=== PATIENT | male | born 1975 | race Caucasian/White ===

== ENCOUNTER 2018-04-07 15:03 | Outpatient (REF) | payer MEDICAID, SELFPAY ==
[2018-04-07 20:54] LABS: Abs Immature Grans 0.03 k/cumm (0.0-0.09); Absolute Basophil Count 0.01 k/cumm (0.0-0.2); Absolute Eosinophil Count 0.07 k/cumm (0.0-0.7); Absolute Lymphocyte Count 1.77 k/cumm (1.2-3.4); Absolute Monocyte Count 0.67 k/cumm (0.11-0.7); Absolute Neutrophil Count 5.63 k/cumm (1.2-6.7); Basophils % 0.1; Eosinophils % 0.9; HCT 45.9 % (40.0-50.0); HGB 15.6 g/dL (13.5-17.5); Immature Grans % 0.4; Lymphocytes % 21.6; Mean Corpuscular Hemoglobin 29.2 pg (27.0-33.0); Mean Platelet Volume 10.3 fL (8.0-11.0); Monocytes % 8.2; Neutrophils % 68.8; Platelet Count 238 x1000/uL (130-400); RBC 5.34 m/cumm (4.50-6.00); RBC Distribution Width 14.3 % (11.8-14.1); White Blood Cell Count 8.18 k/cumm (4.4-10.8)
[2018-04-07 21:05] LABS: Anion Gap 10.1 mmol/L (3-11); BUN 18 mg/dL (7-18); CO2 25.9 mmol/L (21.0-32.0); CREATININE 0.87 mg/dL (0.70-1.30); Calcium 9.4 mg/dL (8.5-10.1); Chloride 104 mmol/L (98-107); Glucose 90 mg/dL (70-100); Potassium 4.1 mmol/L (3.5-5.1); Sodium 140 mmol/L (136-145)
== END 2018-04-07 15:23 ==
LOC: NCHCN 15:03
PROVIDERS: PCP Nurse Practitioner Family; Visit Provider Nurse Practitioner
DX: R10.32 Left lower quadrant pain (principal)
CPT/HCPCS: 80048; 85025

== ENCOUNTER 2018-04-09 10:39 | Outpatient (CLI) | payer SELFPAY ==
[2018-04-09] MEDS: Breeza Beverage 473 ML BTL PO ×2 (08:39→08:40)
[2018-04-09] MEDS: Omnipaque 350 MG/ML 50 ML BTL IJ (08:39)
--- NOTE | 2018-04-09 09:45 | DI.CT_ITS ---
SYMPTOM/DIAGNOSIS: LLQ ABD PAIN, R10.32, ? DIVERTICULITIS OR OBSTRUCTION, DECREASED BOWEL MOVEMENT, INTERMITTENT PALPABLE MASS ABDOMEN AND PELVIC CT: The study was carried out according to the usual protocol with an intravenous injection of 100 cc's of Omnipaque 350 and oral ingestion of dilute barium. There are two tiny pleural based nodules in the left lower lobe. No acute abnormality in the lower thorax is identified. Fatty infiltration of the liver is identified. The gallbladder is intact. There are no stones or ductal dilatation. The pancreas and spleen are unremarkable. The adrenals are normal. The kidneys are unremarkable save for a tiny radiolucency in the cortex of the left kidney, too small to fully characterize however probably representing a tiny cyst. A large quantity of fecal material is noted throughout the bowel. There is a normal appearing appendix. There is no evidence of diverticulosis or diverticulitis. There is no evidence of free air or free fluid in the abdomen or pelvic. The bladder is intact. Calcifications are noted in an otherwise unremarkable prostate. There is no evidence of a hernia. There is no evidence of an aortic aneurysm. Degenerative changes involving the lumbar spine are identified. The bony structures are otherwise unremarkable. SUMMARY: No evidence of obstruction, diverticulosis or diverticulitis as noted above. There is a large quantity of feces in the colon, findings consistent with constipation. Fatty infiltration of the liver is identified.
[2018-04-09] MEDS: Omnipaque 350 MG/ML 100 ML BTL IJ (10:02)
== END 2018-04-09 10:59 ==
PROVIDERS: PCP Nurse Practitioner Family; Visit Provider Nurse Practitioner
DX: R10.32 Left lower quadrant pain (principal); K59.00 Constipation, unspecified; K76.0 Fatty (change of) liver, not elsewhere classified
CPT/HCPCS: 74177; J3490; Q9967

== ENCOUNTER 2018-04-09 19:41 | Emergency (ER) | payer MEDICAID, SELFPAY ==
[2018-04-09 19:58] VITALS: BP 133/79; PULSE 95; RESP 18; TEMP 36.8; O2SAT 95
--- NOTE | 2018-04-09 21:03 | W.ED.GENAD ---
Discharge Plan Disposition Patient Disposition: HOME Condition: Fair Discharge Details Chief Complaint: Abd Prob Clinical Impression: Constipation Primary Care Provider: Clarissa Sheridan ED Provider: Kristi David Discharge Instructions Instructions: Constipation (ED) Additional Instructions: Encourage hydration. Please take magnesium citrate as previously advised. Please keep follow-up appointment tomorrow with your primary care. If you develop increased pain, inability to stay hydrated or other new/worsening symptoms please seek care urgently once again Referrals: Clarissa Sheridan [Primary Care Provider] - Medical Decision Making Patient is a 42-year-old male presenting today with chief complaint of diffuse abdominal pain. He reports over the past 3 weeks he has had difficulty with constipation. Reports that he has tried MiraLAX x2. POrtion of magnesium citrate dosing today. Reports that he was seen by primary care. Laboratory evaluation was obtained Saturday with no acute abnormalities noted. CT was obtained today significant for large amount of stool burden. Primary care had advised patient to try the magnesium citrate. Reports that initially his pain was primarily in the left lower quadrant is much more diffuse at this point. States that pain has increased over the past several days. Reports for the past 5 hours has had nausea and vomiting. Reports that the vomiting is associated with pain. Reports that he has waves of discomfort which she associates with gas pain. Reports that he has not passed flatus today. States that last BM was yesterday but this is very small and hard. No normal bowel movements for the past 3 weeks. On exam, patient has diffuse discomfort. He is endorsing severe discomfort. He does have guarding. Abdomen is not rigid. Plan to obtain x-ray to evaluate for any possible acute changes such as free air or obstruction. We will also repeat laboratory evaluation X-ray reviewed by radiologist. Advised the lungs are clear. No pneumothorax, no sizable pleural effusion. No cardiomegaly. Significant amount of retained fecal matter throughout the colon. No definite findings to suggest obstruction. No pneumoperitoneum. No acute fracture abnormality with the bones or joints. Soft tissues are normal. Patient was given Fleet enema by nursing staff. After enema was given, patient does report that he is feeling improved as he was able to have a small bowel movement. Feels that this may still be working and is hoping to stay for further treatment Proximally half an hour after the initial enema was given, patient is requesting a second. Only small amount, approximately 30cc of fluid, was tolerated by the patient. He reports that after this, he had a large amount of flatus pass. Feels much improved. Reports that his abdomen has decompressed. He is no longer experiencing pain with movement or coughing. Feels that hei s able to go home. Requesting discharge. Feels that the enema has started ot get things moving. He plans to take the magnesium citrate that was advised by primary care. He reports that he has f/u with PCP tomorrow morning. Enocuraged water intake as he reports he has increased his fiber but has had minimal water intake. He feels that his nausea/vomiting has subsided. He was given strict return precautions. All of his quesitons and concerns were addressed, he is in agreement with this plan. HPI General Mode of arrival: ambulatory. Date/Time Provider Initiated Documentation: 04/09/18 20:05. Limitations to Documentation: no limitations. Information obtained by: patient. History of Present Illness 42 year old M presents to the emergency department with the chief complaint of abdominal pain, described as severe, with intensity rated at 10. Quality is described as sharp, and is localized to the abdomen. Patient reports no radiation. Patient started experiencing this week(s) (3) and it has been constant. No relieving factors improve symptom(s), No exacerbating factors reported . Patient notes loss of appetite and nausea/vomiting (states that he ); denies chest pain, cough, fever/chills, rash, shortness of breath, syncope and weakness. Patient did receive the following treatments prior to arrival, other (magnesium citrate) General Stated Complaint: Abd Prob PAUL: 3 Review of Systems Constitutional Reports as per HPI, Denies chills, Denies fever(s), Denies headache(s) and Reports poor appetite ENT Denies headache(s) Cardiovascular Denies chest pain and Denies dyspnea Respiratory Denies cough and Denies dyspnea Gastrointestinal Reports as per HPI, Reports abdominal pain, Reports constipation (had small, firm BM yesterday, last normal BM 3 weeks ago), Reports cramping, Denies excessive flatus (reports he is unable to pass flatus today), Reports nausea and Reports vomiting (vomiting for the past 5 hours, patient associates with increased pain) Genitourinary Denies genital pain, Denies dysuria, Denies flank pain, Denies testicular pain and Denies urinary urgency Musculoskeletal Denies back pain Integumentary/Breasts Denies erythema and Denies rash Neurologic Denies headache(s) [facility] Social History Smoking/Tobacco Use Status: Former Tobacco Use Exam Const General: cooperative, healthy appearing, uncomfortable, no acute distress, well developed, well groomed, acute distress moderate (clutching abdominal pain), not diaphoretic and not ill appearing Nutritional Appearance: well nourished and overweight Orientation: alert and awake Chest Chest: normal inspection of the chest Resp Effort & Inspection: normal respiratory effort, able to speak in complete sentences and no respiratory distress Auscultation: clear to auscultation bilaterally, no rales, no rhonchi and no wheezes Cardio Rate: regular rate Rhythm: regular rhythm Heart Sounds: S1 normal and S2 normal GI Inspection: distended, obesity, no scars and no visible herniation Palpation: firm other (diffuse), guarding (diffuse), no masses, not rigid, tender (diffuse) and No ascites Auscultation: hypoactive bowel sounds Rectal Exam: visual inspection normal, normal sphincter tone, prostate normal, No abnormal stool, No fecal impaction, No fissure, heme negative stool and No hemorrhoids Skin General skin exam: no rashes or lesions noted Lesions: no lesions Rashes: no rashes Trauma: no lacerations or abrasions Neuro General: alert Cognition: normal cognition Speech: speech normal Gait: normal gait Psych Appearance: grossly normal and well kempt Mental Status: mental status grossly normal Speech and Movement: speech and movement normal Course Vital Signs Temperature 36.8 C 04/09/18 19:58 Pulse 95 H 04/09/18 19:58 Respiratory Rate 18 04/09/18 19:58 Blood Pressure 133/79 04/09/18 19:58 Pulse Oximetry 95 04/09/18 19:58 Temperature 36.8 C 04/09/18 19:58 Temperature Source Temporal Artery Scan 04/09/18 19:58 Pulse 95 H 04/09/18 19:58 Respiratory Rate 18 04/09/18 19:58 Respiratory Effort 04/09/18 20:01 Blood Pressure 133/79 04/09/18 19:58 Blood Pressure Position Supine 04/09/18 19:58 Pulse Oximetry 95 04/09/18 19:58 Oxygen Delivery Method Room Air 04/09/18 19:58 Oxygen Flow Rate 0 04/09/18 19:58 Pain Level 9 04/09/18 19:58
[2018-04-09] MEDS: Ketorolac 30 MG/ML VIAL IVP (21:13)
[2018-04-09] MEDS: Normal Saline Flush 10 ML SYR IVP (21:13)
[2018-04-09] MEDS: ACETAMINOPHEN 1,000 MG/100 ML BTL 400 MG IVPB (21:15)
[2018-04-09 21:27] LABS: Abs Immature Grans 0.02 k/cumm (0.0-0.09); Absolute Basophil Count 0.01 k/cumm (0.0-0.2); Absolute Eosinophil Count 0.01 k/cumm (0.0-0.7); Absolute Lymphocyte Count 0.92 k/cumm (1.2-3.4); Absolute Monocyte Count 0.44 k/cumm (0.11-0.7); Absolute Neutrophil Count 9.87 k/cumm (1.2-6.7); Basophils % 0.1; Eosinophils % 0.1; HCT 46.1 % (40.0-50.0); HGB 15.7 g/dL (13.5-17.5); Immature Grans % 0.2; Lymphocytes % 8.2; Mean Corp. HGB Concentration 34.1 g/dL (32.0-36.0); Mean Corpuscular Hemoglobin 29.3 pg (27.0-33.0); Mean Platelet Volume 9.5 fL (8.0-11.0); Monocytes % 3.9; Neutrophils % 87.5; Platelet Count 230 x1000/uL (130-400); RBC 5.36 m/cumm (4.50-6.00); RBC Distribution Width 14.4 % (11.8-14.1); White Blood Cell Count 11.28 k/cumm (4.4-10.8)
[2018-04-09] MEDS: Normal Saline 1,000 ML 1000 ML IV (21:36)
[2018-04-09 21:52] LABS: ALT 45 U/L (12-78); AST 19 U/L (15-37); Alkaline Phosphatase 62 U/L (46-116); Anion Gap 7.3 mmol/L (3-11); BUN 14 mg/dL (7-18); Bilirubin, Total 0.4 mg/dL (0.2-1.0); CO2 30.7 mmol/L (21.0-32.0); CREATININE 1.03 mg/dL (0.70-1.30); Calcium 9.2 mg/dL (8.5-10.1); Chloride 101 mmol/L (98-107); Glucose 121 mg/dL (70-100); Lipase 121 U/L (73-393); Potassium 4.1 mmol/L (3.5-5.1); Sodium 139 mmol/L (136-145); Total Protein 7.8 g/dL (6.4-8.2)
--- NOTE | 2018-04-09 21:58 | DI.RAD_ITS ---
SYMPTOM/DIAGNOSIS: ABD PAIN PA CHEST: The heart is normal in size. The lungs are clear. The mediastinal structures and pleura appear intact. CONCLUSION: Normal chest. KUB AND UPRIGHT ABDOMEN: There is a large quantity of fecal material throughout the colon. There are no definite findings to suggest obstruction. There is no pneumoperitoneum. No acute bony abnormality is identified. The soft tissues are unremarkable. SUMMARY: No acute cardiopulmonary disease is identified. There is a considerable quantity of fecal material throughout the colon with no evidence of obstruction. The findings would be consistent with constipation and there is no evidence of pneumoperitoneum.
--- NOTE | 2018-04-09 22:21 | DI.VRAD_ITS ---
EXAM: XR Abdomen 2 Views with XR Chest 1 View EXAM DATE/TIME: 04/09/2018 8:58 PM CLINICAL HISTORY: 42 years old, male; Pain; Abdominal pain; Other: Constipation TECHNIQUE: XR of the abdomen (2 views) with XR chest (1 view). COMPARISON: CT Abdomen^ROUTINE ABDOMEN PELVIS WITH CONTRAST (Adult) 04/09/2018 9:35 AM FINDINGS: Lungs: Clear lungs. Pleural space: No pneumothorax. No sizable pleural effusion. Heart/Mediastinum: No cardiomegaly. Gastrointestinal tract: Significant amount of retained fecal material throughout the colon. No definite findings to suggest obstruction. Intraperitoneal space: No pneumoperitoneum. Bones/joints: Normal. No acute fracture. Soft tissues: Normal. IMPRESSION: 1. Clear lungs. 2. Significant amount of retained fecal material throughout the colon. No definite findings to suggest obstruction. 3. No pneumoperitoneum. Dictated and Authenticated by: Akil Echevarria MD. Ordering:KRISTEN JEFFERS MD
== END 2018-04-10 00:18 | disposition home or self-care (01) ==
PROVIDERS: Emergency Provider Physician Assistant; PCP Nurse Practitioner
DX: K59.00 Constipation, unspecified (principal)
CPT/HCPCS: 36415; 80053; 83690; 96361; 96374; 96375; 99284; 74022; 85025; J0131; J1885

== ENCOUNTER 2018-05-08 15:45 | Emergency (ER) | payer MEDICAID, SELFPAY ==
--- NOTE | 2018-05-08 15:46 | W.ED.GENAD ---
Discharge Plan Disposition Patient Disposition: HOME Condition: Stable Discharge Details Chief Complaint: Abd Prob Clinical Impression: Constipation Primary Care Provider: Clarissa Sheridan ED Provider: Ethan Mojica Home Meds and New Rx's Prescriptions: New ondansetron HCl [Zofran] 4 mg tablet 4 mg PO TID PRN (Reason: nausea and vomiting) 5 Days Qty: 30 RF: 0 Continue acetaminophen [Tylenol Arthritis Pain] 650 mg Tablet Extended Release 650 mg PO Q8H PRN PRNRF: 0 magnesium citrate Solution 240 ml PO ONCE PRNRF: 0 polyethylene glycol 3350 [ClearLax] 17 gram/dose Powder 1 dose PO PRNRF: 0 dpxaxdkz-cbn-oddxt-vit K-lycop [Men's 50 Plus Multivitamin] 400-20-370 mcg Tablet 1 tab PO DAILY RF: 0 Discharge Instructions Instructions: Constipation (ED) Additional Instructions: you should be contacted with an appointment for general surgery as you will likely need a colonscopy if you have fevers or diarrhea start taking the antibiotics. Medical Decision Making 42 yo male who denies prior abdominal surgeries or chronic med problems comes in with continued constipation. he has had this for over a month, was seen last month and had negative CT other than showing constipation. Has been trying stool softeners and miralax and mag citrate but still has difficulty getting stool out. Was able to have small amount of soft stool this AM. On exam has no abdominal distention, normal bowel sounds and mild lower abdominal discomfort without gurading, does feel constipated. The pt declined a rectal exam. Will have nurse try soap suds enema and reassess. pt had small amount of stool after enema, still feels uncomfortable however. His abdominal exam hasn't changed significantly. He is requesting a CT to eval for possible diverticulitis as he has had this in the past, will obtain ct CT shows ?colitis but he has no diarrhea or fevers or chills so do not feel abx indicated, he will start cipro/flagyl if he develops this and states he has this at home from a month ago already for 7 day tx. Also showed stricture vs neoplasm vs spasm of colon wall. Will refer him to gen surgery for eval and possible colonoscopy. Still no guarding or rebound on abdominal exam Differential Diagnosis constpiation, sbo, diverticulitis Imaging Data Radiologic Study: Attestation: I personally reviewed and interpreted this imaging study as follows: Imaging: CT Scan Radiologist's impression: IMPRESSION: 1. Colonic diverticulosis. 2. Mild wall thickening of the descending colon, most prominent in the distal descending colon where there is mild hazy density in the pericolic fat. These findings raise the suspicion for colitis. 3. 7 cm long segment of collapsed proximal sigmoid colon. Differential diagnosis includes spasm, stricture as well as neoplasm. Further evaluation is suggested. HPI General Mode of arrival: ambulatory. Date/Time Provider Initiated Documentation: 05/08/18 15:45. Limitations to Documentation: no limitations. Information obtained by: patient. History of Present Illness 42 year old M presents to the emergency department with the chief complaint of constipation, described as moderate, with intensity rated at 7. Quality is described as aching, and is localized to the abdomen. Patient reports no radiation. Patient started experiencing this month(s) (1) and it has been constant. No relieving factors improve symptom(s), No exacerbating factors reported . Patient did receive the following treatments prior to arrival, other (miralax) Related Data Home Medications Medication Instructions Recorded Confirmed acetaminophen [Tylenol Arthritis 650 mg PO Q8H PRN PRN 05/08/18 05/08/18 Pain] magnesium citrate 240 ml PO ONCE PRN 05/08/18 05/08/18 prxfirdt-fuz-prpws-vit K-lycop 1 tab PO DAILY 05/08/18 05/08/18 [Men's 50 Plus Multivitamin] ondansetron HCl [Zofran] 4 mg PO TID PRN 5 Days #30 tab 05/08/18 polyethylene glycol 3350 [ClearLax] 1 dose PO PRN 05/08/18 Previous Rx's Medication Instructions Recorded ondansetron HCl [Zofran] 4 mg PO TID PRN 5 Days #30 tab 05/08/18 Allergies Allergy/AdvReac Type Severity Reaction Status Date / Time No Known Allergies Allergy Unverified 05/08/18 15:56 General PAUL: 3 Review of Systems Review of Systems All systems reviewed & are unremarkable except as noted in HPI and below Constitutional Denies chills, Denies fever(s) and Denies weakness Eyes Denies loss of vision ENT Denies change in voice Cardiovascular Denies chest pain and Denies dyspnea Respiratory Denies dyspnea Genitourinary Denies dysuria Musculoskeletal Denies joint swelling Integumentary/Breasts Denies rash Neurologic Denies loss of vision and Denies weakness PFSH Social History Smoking/Tobacco Use Status: Former Tobacco Use Exam Const General: no acute distress Orientation: alert HENMT Head: normal to inspection Ears: external ears normal General nose exam: external nose normal Mouth: moist mucous membranes Eyes General: appearance normal, both eyes and all related structures Neck Neck: normal visual inspection Resp Effort & Inspection: normal respiratory effort and able to speak in complete sentences Cardio Rate: regular rate GI Inspection: normal to inspection, no abdominal wall ecchymosis and non-distended Palpation: soft Skin General skin exam: no rashes or lesions noted Neuro General: alert and oriented x3 Extrem General: normal to inspection Psych Mental Status: mental status grossly normal
[2018-05-08 15:53] VITALS: BP 141/88; PULSE 79; RESP 18; TEMP 37; O2SAT 96
--- NOTE | 2018-05-08 16:01 | ED.GENADUL_ITS ---
Discharge Plan Disposition Patient Disposition: HOME Condition: Stable Discharge Details Chief Complaint: Abd Prob Clinical Impression: Constipation Primary Care Provider: Clarissa Sheridan ED Provider: Ethan Mojica Home Meds and New Rx's Prescriptions: New ondansetron HCl [Zofran] 4 mg tablet 4 mg PO TID PRN (Reason: nausea and vomiting) 5 Days Qty: 30 RF: 0 Continue acetaminophen [Tylenol Arthritis Pain] 650 mg Tablet Extended Release 650 mg PO Q8H PRN PRNRF: 0 magnesium citrate Solution 240 ml PO ONCE PRNRF: 0 polyethylene glycol 3350 [ClearLax] 17 gram/dose Powder 1 dose PO PRNRF: 0 lspwpour-lhy-cjalz-vit K-lycop [Men's 50 Plus Multivitamin] 400-20-370 mcg Tablet 1 tab PO DAILY RF: 0 Discharge Instructions Instructions: Constipation (ED) Additional Instructions: you should be contacted with an appointment for general surgery as you will likely need a colonscopy if you have fevers or diarrhea start taking the antibiotics. Medical Decision Making 42 yo male who denies prior abdominal surgeries or chronic med problems comes in with continued constipation. he has had this for over a month, was seen last month and had negative CT other than showing constipation. Has been trying stool softeners and miralax and mag citrate but still has difficulty getting stool out. Was able to have small amount of soft stool this AM. On exam has no abdominal distention, normal bowel sounds and mild lower abdominal discomfort without gurading, does feel constipated. The pt declined a rectal exam. Will have nurse try soap suds enema and reassess. pt had small amount of stool after enema, still feels uncomfortable however. His abdominal exam hasn't changed significantly. He is requesting a CT to eval for possible diverticulitis as he has had this in the past, will obtain ct CT shows ?colitis but he has no diarrhea or fevers or chills so do not feel abx indicated, he will start cipro/flagyl if he develops this and states he has this at home from a month ago already for 7 day tx. Also showed stricture vs neoplasm vs spasm of colon wall. Will refer him to gen surgery for eval and possible colonoscopy. Still no guarding or rebound on abdominal exam Differential Diagnosis constpiation, sbo, diverticulitis Imaging Data Radiologic Study: Attestation: I personally reviewed and interpreted this imaging study as follows: Imaging: CT Scan Radiologist's impression: IMPRESSION: 1. Colonic diverticulosis. 2. Mild wall thickening of the descending colon, most prominent in the distal descending colon where there is mild hazy density in the pericolic fat. These findings raise the suspicion for colitis. 3. 7 cm long segment of collapsed proximal sigmoid colon. Differential diagnosis includes spasm, stricture as well as neoplasm. Further evaluation is suggested. HPI General Mode of arrival: ambulatory . Date/Time Provider Initiated Documentation: 05/08/18 15:45 . Limitations to Documentation: no limitations . Information obtained by: patient . History of Present Illness 42 year old M presents to the emergency department with the chief complaint of constipation, described as moderate, with intensity rated at 7. Quality is described as aching, and is localized to the abdomen. Patient reports no radiation. Patient started experiencing this month(s) (1) and it has been constant. No relieving factors improve symptom(s), No exacerbating factors reported . Patient did receive the following treatments prior to arrival, other (miralax) Related Data Home Medications Medication Instructions Recorded Confirmed acetaminophen [Tylenol Arthritis 650 mg PO Q8H PRN PRN 05/08/18 05/08/18 Pain] magnesium citrate 240 ml PO ONCE PRN 05/08/18 05/08/18 buxzqybn-dls-urour-vit K-lycop 1 tab PO DAILY 05/08/18 05/08/18 [Men's 50 Plus Multivitamin] ondansetron HCl [Zofran] 4 mg PO TID PRN 5 Days #30 tab 05/08/18 polyethylene glycol 3350 [ClearLax] 1 dose PO PRN 05/08/18 Previous Rx's Medication Instructions Recorded ondansetron HCl [Zofran] 4 mg PO TID PRN 5 Days #30 tab 05/08/18 Allergies Allergy/AdvReac Type Severity Reaction Status Date / Time No Known Allergies Allergy Unverified 05/08/18 15:56 General PAUL: 3 Review of Systems Review of Systems All systems reviewed & are unremarkable except as noted in HPI and below Constitutional Denies chills, Denies fever(s) and Denies weakness Eyes Denies loss of vision ENT Denies change in voice Cardiovascular Denies chest pain and Denies dyspnea Respiratory Denies dyspnea Genitourinary Denies dysuria Musculoskeletal Denies joint swelling Integumentary/Breasts Denies rash Neurologic Denies loss of vision and Denies weakness PFSH Social History Smoking/Tobacco Use Status: Former Tobacco Use Exam Const General: no acute distress Orientation: alert HENMT Head: normal to inspection Ears: external ears normal General nose exam: external nose normal Mouth: moist mucous membranes Eyes General: appearance normal, both eyes and all related structures Neck Neck: normal visual inspection Resp Effort & Inspection: normal respiratory effort and able to speak in complete sentences Cardio Rate: regular rate GI Inspection: normal to inspection, no abdominal wall ecchymosis and non-distended Palpation: soft Skin General skin exam: no rashes or lesions noted Neuro General: alert and oriented x3 Extrem General: normal to inspection Psych Mental Status: mental status grossly normal
--- NOTE | 2018-05-08 16:39 | DI.CT_ITS ---
SYMPTOM/DIAGNOSIS: NAUSEA, VOMITING, LOW ABD PAIN ABDOMEN AND PELVIC CT: CT scan of the abdomen and pelvis was performed without intravenous or oral contrast material. Comparison is made with 04/09/18. The lung bases appear clear. There is diffuse decreased attenuation of the liver consistent with hepatic steatosis. No discrete hepatic mass is seen on this noncontrast examination. The gallbladder is unremarkable. No calcified stones are seen. No biliary ductal dilatation is present. The unenhanced pancreas, spleen and adrenal glands are unremarkable. There is a non obstructing stone seen in the superior pole of the left kidney. No ureterolithiasis or hydronephrosis is seen. The urinary bladder and reproductive organs are grossly unremarkable. There is diverticulosis seen involving the distal transverse colon, descending colon and proximal sigmoid colon. There is mild bowel wall thickening seen in the distal descending colon and proximal sigmoid colon with a question of mild increased attenuation in the adjacent fat suspicious for a diverticulitis/ colitis. There is a 7 cm. segment of collapsed bowel involving the proximal sigmoid colon. This has a similar appearance compared to 04/09/18. While this may represent collapsed nondistended bowel, stricture or mass cannot be excluded and follow up is recommended. The abdominal aorta is of normal caliber with minimal atherosclerosis. No abdominal or pelvic adenopathy, ascites or pneumoperitoneum is seen. The bones are intact. IMPRESSION: 1. Colonic diverticulosis. 2. Bowel wall thickening and pericolonic inflammatory changes seen in the distal descending colon and proximal sigmoid colon suspicious for acute diverticulitis or colitis. 3. 7 cm. long segment of collapsed bowel in the proximal sigmoid colon. While this may represent nondistended bowel, the possibility of a stricture or neoplasm cannot be excluded and follow up is recommended.
--- NOTE | 2018-05-08 17:28 | DI.VRAD_ITS ---
EXAM: CT Abdomen and Pelvis Without Intravenous Contrast EXAM DATE/TIME: 05/08/2018 4:40 PM CLINICAL HISTORY: 42 years old, male; Signs and symptoms; Other: Nausea, vomiting, lower abdominal pain TECHNIQUE: Axial computed tomography images of the abdomen and pelvis without intravenous contrast. All CT scans at this facility use at least one of these dose optimization techniques: automated exposure control; mA and/or kV adjustment per patient size (includes targeted exams where dose is matched to clinical indication); or iterative reconstruction. Coronal and sagittal reformatted images were created and reviewed. COMPARISON: CT Abdomen^ROUTINE ABDOMEN PELVIS WITH CONTRAST (Adult) 04/09/2018 9:35 AM FINDINGS: Lower thorax: No acute findings. ABDOMEN: Liver: Diffuse fatty infiltration of the liver. Gallbladder and bile ducts: Normal. No calcified stones. No ductal dilation. Pancreas: Unremarkable. No ductal dilation. Spleen: Unremarkable. No splenomegaly. Adrenals: Normal. No mass. Kidneys and ureters: Unremarkable. No stones. No hydronephrosis. Stomach and bowel: There are numerous diverticuli within the splenic flexure, descending colon and sigmoid colon. No definite diverticulitis is present. There is mild generalized wall thickening throughout the descending colon. Circumferential wall thickening of the distal descending colon is most prominent on axial images 73 through 83 where there is minimal hazy density in the pericolic fat. These findings are suspicious for mild colitis. The proximal sigmoid colon is nondistended (axial images 86 through 91) and there is a questionable abrupt caliber transition at the junction of the distal descending and sigmoid colon on axial images 80 through 84. A proximal sigmoid colon lesion or stricture is possible. Followup evaluation with either direct visualization or imaging study using enteric contrast is suggested. Appendix: No evidence of appendicitis. PELVIS: Bladder: Unremarkable as visualized. Reproductive: Unremarkable as visualized. ABDOMEN and PELVIS: Intraperitoneal space: No free air. No significant fluid collection. Bones/joints: No acute fracture. Soft tissues: Unremarkable. Vasculature: Minimal atherosclerosis of the abdominal aorta. No aneurysm. Lymph nodes: No enlarged lymph nodes. IMPRESSION: 1. Colonic diverticulosis. 2. Mild wall thickening of the descending colon, most prominent in the distal descending colon where there is mild hazy density in the pericolic fat. These findings raise the suspicion for colitis. 3. 7 cm long segment of collapsed proximal sigmoid colon. Differential diagnosis includes spasm, stricture as well as neoplasm. Further evaluation is suggested. Dictated and Authenticated by: Delbert Yeager MD. Ordering:АНДРЕЙ COLON MD
[2018-05-08] MEDS: Ketorolac 30 MG/ML VIAL IM (17:47)
[2018-05-08 17:58] VITALS: BP 133/80; PULSE 65; RESP 18; TEMP 36.8; O2SAT 99
== END 2018-05-08 17:59 | disposition home or self-care (01) ==
PROVIDERS: Emergency Provider Emergency Medicine; PCP Nurse Practitioner
DX: K59.00 Constipation, unspecified (principal); K57.20 Diverticulitis of large intestine with perforation and abscess without bleeding
CPT/HCPCS: 96372; 99284; 74176; J1885

== ENCOUNTER 2018-05-29 13:03 | Outpatient (CLI) | payer MEDICAID, SELFPAY ==
[2018-05-29] MEDS: Breeza Beverage 473 ML BTL PO ×2 (12:55→12:56)
[2018-05-29] MEDS: Omnipaque 350 MG/ML 50 ML BTL PO (12:55)
--- NOTE | 2018-05-29 14:20 | DI.CT_ITS ---
SYMPTOMS/DIAGNOSIS: ABD PAIN GENERALIZED SEVERE , R10.84, ? DIVERTICULITIS CT OF THE ABDOMEN AND PELVIS: Comparison is made with [id number]. Images were performed from the lung bases through the ischial tuberosities after IV and oral contrast. There is again noted to be a long segment of abnormal wall thickening in the proximal sigmoid just after the junction of the descending and sigmoid colon. There is dilatation of the colon proximal to this area containing a large quantity of stool. The findings are highly suspicious for an obstructing tumor. The findings appear relatively unchanged compared with exams from 17Oct and [id number]. The approximate length of the abnormal length is 8 cm. There are few tiny lymph nodes in the adjacent mesentery. No free air or free fluid is seen. The lung bases are clear. The heart size appears normal. No pleural or pericardial effusions are seen. The liver shows diffuse fatty infiltration. There is a 1 cm low density lesion at the superior right lobe of the liver, just below the diaphragm which is indeterminate. No biliary dilatation is seen. The spleen, pancreas, gallbladder, adrenals and kidneys are unremarkable. The aorta is normal in diameter and shows mild calcification. The appendix appears normal. The prostate is normal in size and shows a few calcifications. The bladder is unremarkable. There is no small bowel dilatation. IMPRESSION: Colonic dilatation with a focal transition point which has a mass like appearance at the junction of the descending and sigmoid colon. The findings are suspicious for colon carcinoma. There are diverticula, however, no signs of inflammation are noted.
[2018-05-29] MEDS: Omnipaque 350 MG/ML 100 ML BTL IJ (14:22)
== END 2018-05-29 13:23 ==
PROVIDERS: PCP Nurse Practitioner; Visit Provider Nurse Practitioner
DX: R10.84 Generalized abdominal pain (principal); K63.89 Other specified diseases of intestine; K57.30 Diverticulosis of large intestine without perforation or abscess without bleeding; K59.39 Other megacolon
CPT/HCPCS: 74177; J3490; Q9967

== ENCOUNTER 2018-05-29 15:01 | Inpatient (IN) | payer MEDICAID, SELFPAY ==
[2018-05-29 15:05] VITALS: BP 134/72; PULSE 74; RESP 16; TEMP 36.9; O2SAT 97
--- NOTE | 2018-05-29 15:23 | W.ED.GENAD ---
Discharge Plan Disposition Patient Disposition: [facility] INPATIENT Condition: Stable Discharge Details Chief Complaint: Abd Prob Clinical Impression: Bowel obstruction Reason For Visit: BOWEL OBSTRUCTION DUE TO POTENTIAL NEOPLASM Admit Date/Time: 05/29/18 16:44 Admit Provider: Meagan Duenas Attending Provider: Meagan Duenas Primary Care Provider: Clarissa Sheridan ED Provider: Deshawn Law Discharge Data Discharge Date/Time-TO BE ENTERED AT DEPARTURE: 05/29/18 17:29 Medical Decision Making Patient presenting to the emergency department at request of primary care provider due to CT image findings of bowel obstruction. Patient states approximately 3 weeks ago he was diagnosed with diverticulitis and he is 7 days into a 10-day course of Cipro Flagyl but for the last 3 days he has had a worsening intensity to his abdominal pain. Patient is coming straight from radiology department due to read of bowel obstruction. Patient does state ongoing history of diverticulitis with multiple flareups. Patient states some associated nausea otherwise no other significant positive review of system findings. Plan to check labs and contact general surgery in regards to admission of the patient. Pending results patient given liter of IV fluids and Zofran, and ketorolac as patient states that he does not initially want to start with opiates. Pending results Dr. Duenas general surgeon oncology rep was contacted for admission of the patient. She agreed to admitting the patient pending results. Pending results patient was reassessed and states no improvement in discomfort so patient was ordered 0.5 of hydromorphone. Patient was held in the emergency department until all results were back and reviewed and show nondiagnostic no worrisome findings. Patient reassessed and states pain is now better at rest but that he is still having some spasms. Admission bed was ready so patient was admitted. Patient remained stable throughout emergency department stay with no new or worsening symptoms HPI General Mode of arrival: ambulatory. Date/Time Provider Initiated Documentation: 05/29/18 15:06. Limitations to Documentation: no limitations. Information obtained by: patient, RN notes reviewed and old records reviewed. History of Present Illness 42 year old M presents to the emergency department with the chief complaint of Abd pain, described as severe, Quality is described as sharp, and is localized to the abdomen. Patient started experiencing this week(s) (3) and it has been constant. No relieving factors improve symptom(s), No exacerbating factors reported . Patient notes no other symptoms.. Patient did receive the following treatments prior to arrival, NSAID Related Data Home Medications Medication Instructions Recorded Confirmed acetaminophen [Tylenol Arthritis 650 mg PO Q8H PRN PRN 05/08/18 06/02/18 Pain] xhroskzt-[id number]-vit K-lycop 1 tab PO DAILY 05/08/18 06/02/18 [Men's 50 Plus Multivitamin] polyethylene glycol 3350 [ClearLax] 1 dose PO BID 05/08/18 06/02/18 bisacodyl 5 mg tablet,delayed 10 mg PO BID #4 tab 06/02/18 06/02/18 release erythromycin 500 mg tablet 1 gm PO .COMPLEX #6 tab 06/02/18 06/02/18 ibuprofen 200 mg tablet 800 mg PO QID PRN tab 06/02/18 06/02/18 neomycin 500 mg tablet 1 gm PO .COMPLEX #6 tab 06/02/18 06/02/18 polyethylene glycol 3350 17 255 gm PO ONCE #255 gm 06/02/18 06/02/18 gram/dose oral powder Previous Rx's Medication Instructions Recorded bisacodyl 5 mg tablet,delayed 10 mg PO BID #4 tab 06/02/18 release erythromycin 500 mg tablet 1 gm PO .COMPLEX #6 tab 06/02/18 neomycin 500 mg tablet 1 gm PO .COMPLEX #6 tab 06/02/18 polyethylene glycol 3350 17 255 gm PO ONCE #255 gm 06/02/18 gram/dose oral powder Allergies Allergy/AdvReac Type Severity Reaction Status Date / Time No Known Allergies Allergy Verified 06/02/18 09:32 General Stated Complaint: Abd Prob PAUL: 3 Review of Systems Constitutional Denies chills, Denies fever(s) and Reports poor appetite Cardiovascular Denies chest pain and Denies dyspnea Respiratory Denies dyspnea Gastrointestinal Reports as per HPI, Reports abdominal pain, Denies melena, Reports change in bowel habits, Denies constipation, Denies diarrhea, Reports nausea and Denies vomiting Genitourinary Denies hematuria, Denies difficulty urinating, Denies urinary hesitancy, Denies urinary incontinence and Denies urinary urgency Integumentary/Breasts Denies rash PFSH Sleep apnea (Acute) Family History Father Diabetes Mother Depression H/O left knee surgery (Acute) Family History Father Diabetes Mother Depression Social History Smoking/Tobacco Use Status: Former Tobacco Use alcohol intake: current alcohol intake frequency: 0-2 drinks per day Alcohol type: beer substance use type: does not use Surgical History H/O left knee surgery (Acute) Social History Smoking/Tobacco Use Status: Former Tobacco Use alcohol intake: current alcohol intake frequency: 0-2 drinks per day Alcohol type: beer substance use type: does not use Exam Const General: cooperative Orientation: alert, awake and oriented x3 Resp Effort & Inspection: normal respiratory effort and able to speak in complete sentences Auscultation: clear to auscultation bilaterally Cardio Rate: regular rate Rhythm: regular rhythm Heart Sounds: S1 normal and S2 normal GI Palpation: soft, no hepatosplenomegaly, not firm, no guarding, no masses, no pulsatile masses, not rigid, no splenomegaly and tender in the epigastrum and in the LLQ; not at McBurney's point, Sommer's sign negative, with no rebound tenderness and Rovsing's sign negative Auscultation: normal bowel sounds Back/Spine/Pelvis Back: no CVA tenderness Neuro General: alert, awake, oriented x3, gait normal and moves all extremities Course Vital Signs Temperature 36.9 C 05/29/18 15:05 Pulse 74 05/29/18 15:05 Respiratory Rate 16 05/29/18 15:05 Blood Pressure 134/72 05/29/18 15:05 Pulse Oximetry 97 05/29/18 15:05 Temperature 36.9 C 05/29/18 15:05 Temperature Source Skin 05/29/18 15:05 Pulse 74 05/29/18 15:05 Respiratory Rate 16 05/29/18 15:05 Blood Pressure 134/72 05/29/18 15:05 Blood Pressure Position Sitting 05/29/18 15:05 Pulse Oximetry 97 05/29/18 15:05 Oxygen Delivery Method Room Air 05/29/18 15:05 Oxygen Flow Rate 0 05/29/18 15:05 Pain Level 7 05/29/18 15:05
--- NOTE | 2018-05-29 15:26 | ED.GENADUL_ITS ---
Discharge Plan Disposition Patient Disposition: [facility] INPATIENT Condition: Stable Discharge Details Chief Complaint: Abd Prob Clinical Impression: Bowel obstruction Reason For Visit: BOWEL OBSTRUCTION DUE TO POTENTIAL NEOPLASM Admit Date/Time: 05/29/18 16:44 Admit Provider: Meagan Duenas Attending Provider: Meagan Duenas Primary Care Provider: Clarissa Sheridan ED Provider: Deshawn Law Discharge Data Discharge Date/Time-TO BE ENTERED AT DEPARTURE: 05/29/18 17:29 Medical Decision Making Patient presenting to the emergency department at request of primary care provider due to CT image findings of bowel obstruction. Patient states approximately 3 weeks ago he was diagnosed with diverticulitis and he is 7 days into a 10-day course of Cipro Flagyl but for the last 3 days he has had a worsening intensity to his abdominal pain. Patient is coming straight from radiology department due to read of bowel obstruction. Patient does state ongoing history of diverticulitis with multiple flareups. Patient states some associated nausea otherwise no other significant positive review of system findings. Plan to check labs and contact general surgery in regards to admission of the patient. Pending results patient given liter of IV fluids and Zofran, and ketorolac as patient states that he does not initially want to start with opiates. Pending results Dr. Duenas general surgeon diamond cleaver was contacted for admission of the patient. She agreed to admitting the patient pending results. Pending results patient was reassessed and states no improvement in discomfort so patient was ordered 0.5 of hydromorphone. Patient was held in the emergency department until all results were back and reviewed and show nondiagnostic no worrisome findings. Patient reassessed and states pain is now better at rest but that he is still having some spasms. Admission bed was ready so patient was admitted. Patient remained stable throughout emergency department stay with no new or worsening symptoms HPI General Mode of arrival: ambulatory . Date/Time Provider Initiated Documentation: 05/29/18 15:06 . Limitations to Documentation: no limitations . Information obtained by: patient, RN notes reviewed and old records reviewed . History of Present Illness 42 year old M presents to the emergency department with the chief complaint of Abd pain, described as severe, Quality is described as sharp, and is localized to the abdomen. Patient started experiencing this week(s) (3) and it has been constant. No relieving factors improve symptom(s), No exacerbating factors reported . Patient notes no other symptoms.. Patient did receive the following treatments prior to arrival, NSAID Related Data Home Medications Medication Instructions Recorded Confirmed acetaminophen [Tylenol Arthritis 650 mg PO Q8H PRN PRN 05/08/18 06/02/18 Pain] gvanevqa-cxv-ajapp-vit K-lycop 1 tab PO DAILY 05/08/18 06/02/18 [Men's 50 Plus Multivitamin] polyethylene glycol 3350 [ClearLax] 1 dose PO BID 05/08/18 06/02/18 bisacodyl 5 mg tablet,delayed 10 mg PO BID #4 tab 06/02/18 06/02/18 release erythromycin 500 mg tablet 1 gm PO .COMPLEX #6 tab 06/02/18 06/02/18 ibuprofen 200 mg tablet 800 mg PO QID PRN tab 06/02/18 06/02/18 neomycin 500 mg tablet 1 gm PO .COMPLEX #6 tab 06/02/18 06/02/18 polyethylene glycol 3350 17 255 gm PO ONCE #255 gm 06/02/18 06/02/18 gram/dose oral powder Previous Rx's Medication Instructions Recorded bisacodyl 5 mg tablet,delayed 10 mg PO BID #4 tab 06/02/18 release erythromycin 500 mg tablet 1 gm PO .COMPLEX #6 tab 06/02/18 neomycin 500 mg tablet 1 gm PO .COMPLEX #6 tab 06/02/18 polyethylene glycol 3350 17 255 gm PO ONCE #255 gm 06/02/18 gram/dose oral powder Allergies Allergy/AdvReac Type Severity Reaction Status Date / Time No Known Allergies Allergy Verified 06/02/18 09:32 General Stated Complaint: Abd Prob PAUL: 3 Review of Systems Constitutional Denies chills, Denies fever(s) and Reports poor appetite Cardiovascular Denies chest pain and Denies dyspnea Respiratory Denies dyspnea Gastrointestinal Reports as per HPI, Reports abdominal pain, Denies melena, Reports change in bowel habits, Denies constipation, Denies diarrhea, Reports nausea and Denies vomiting Genitourinary Denies hematuria, Denies difficulty urinating, Denies urinary hesitancy, Denies urinary incontinence and Denies urinary urgency Integumentary/Breasts Denies rash PFSH Sleep apnea (Acute) Family History Father Diabetes Mother Depression H/O left knee surgery (Acute) Family History Father Diabetes Mother Depression Social History Smoking/Tobacco Use Status: Former Tobacco Use alcohol intake: current alcohol intake frequency: 0-2 drinks per day Alcohol type: beer substance use type: does not use Surgical History H/O left knee surgery (Acute) Social History Smoking/Tobacco Use Status: Former Tobacco Use alcohol intake: current alcohol intake frequency: 0-2 drinks per day Alcohol type: beer substance use type: does not use Exam Const General: cooperative Orientation: alert, awake and oriented x3 Resp Effort & Inspection: normal respiratory effort and able to speak in complete sentences Auscultation: clear to auscultation bilaterally Cardio Rate: regular rate Rhythm: regular rhythm Heart Sounds: S1 normal and S2 normal GI Palpation: soft, no hepatosplenomegaly, not firm, no guarding, no masses, no pulsatile masses, not rigid, no splenomegaly and tender in the epigastrum and in the LLQ; not at McBurney's point, Sommer's sign negative, with no rebound tenderness and Rovsing's sign negative Auscultation: normal bowel sounds Back/Spine/Pelvis Back: no CVA tenderness Neuro General: alert, awake, oriented x3, gait normal and moves all extremities Course Vital Signs Temperature 36.9 C 05/29/18 15:05 Pulse 74 05/29/18 15:05 Respiratory Rate 16 05/29/18 15:05 Blood Pressure 134/72 05/29/18 15:05 Pulse Oximetry 97 05/29/18 15:05 Temperature 36.9 C 05/29/18 15:05 Temperature Source Skin 05/29/18 15:05 Pulse 74 05/29/18 15:05 Respiratory Rate 16 05/29/18 15:05 Blood Pressure 134/72 05/29/18 15:05 Blood Pressure Position Sitting 05/29/18 15:05 Pulse Oximetry 97 05/29/18 15:05 Oxygen Delivery Method Room Air 05/29/18 15:05 Oxygen Flow Rate 0 05/29/18 15:05 Pain Level 7 05/29/18 15:05
[2018-05-29] MEDS: Ketorolac 30 MG/ML VIAL IVP ×3 (15:39→21:38)
[2018-05-29] MEDS: Normal Saline 1,000 ML 1000 ML IV (15:48)
[2018-05-29 15:49] LABS: Lactate 0.9 mmol/L (0.6-1.4)
[2018-05-29 15:54] LABS: Abs Immature Grans 0.01 k/cumm (0.0-0.09); Absolute Basophil Count 0.02 k/cumm (0.0-0.2); Absolute Eosinophil Count 0.05 k/cumm (0.0-0.7); Absolute Lymphocyte Count 1.79 k/cumm (1.2-3.4); Absolute Monocyte Count 0.47 k/cumm (0.11-0.7); Absolute Neutrophil Count 4.24 k/cumm (1.2-6.7); Basophils % 0.3; Eosinophils % 0.8; HCT 46.1 % (40.0-50.0); HGB 15.6 g/dL (13.5-17.5); Immature Grans % 0.2; Lymphocytes % 27.2; Mean Corp. HGB Concentration 33.8 g/dL (32.0-36.0); Mean Corpuscular Hemoglobin 29.4 pg (27.0-33.0); Mean Platelet Volume 10.1 fL (8.0-11.0); Monocytes % 7.1; Neutrophils % 64.4; Platelet Count 214 x1000/uL (130-400); RBC Distribution Width 14.4 % (11.8-14.1); White Blood Cell Count 6.58 k/cumm (4.4-10.8)
[2018-05-29 16:23] LABS: ALT 68 U/L (12-78); AST 34 U/L (15-37); Albumin 3.9 g/dL (3.4-5.0); Alkaline Phosphatase 52 U/L (46-116); Anion Gap 8.3 mmol/L (3-11); BUN 11 mg/dL (7-18); Bilirubin, Total 0.4 mg/dL (0.2-1.0); CO2 27.7 mmol/L (21.0-32.0); CREATININE 0.97 mg/dL (0.70-1.30); Chloride 101 mmol/L (98-107); Glucose 88 mg/dL (70-100); Lipase 206 U/L (73-393); Sodium 137 mmol/L (136-145); Total Protein 7.1 g/dL (6.4-8.2)
[2018-05-29] MEDS: HYDROmorphone 2 MG/ML VIAL 0.5 MG IVP ×3 (16:40→23:28)
[2018-05-29 17:25] VITALS: BP 116/71; PULSE 67; RESP 16; TEMP 37.1; O2SAT 98
[2018-05-29 17:40] VITALS: BP 123/88; PULSE 72; RESP 20; TEMP 36.5; O2SAT 98
--- NOTE | 2018-05-29 18:52 | W.PM.HP.N ---
Date of service: 05/29/18 Time of Service: 18:54 Assessment and Plan (1) Colonic obstruction: Current visit: Yes Status: Acute 42 y/o male who presents with findings of colonic obstruction. Dilated colon full of stool proximally with transition zone ~ 8 cm in length at the descending colon and sigmoid colon junction noted on CT. Patient has a prior history of diverticulitis and a 2 month h/o bowel symptoms. He has had a 7 day course of oral antibiotics without improvement. Differential diagnosis includes stricture formation secondary to recurrent diverticulitis vs. neoplasm/colon cancer. CT findings reviewed with patient. Recommended flexible sigmoidoscopy for further evaluation of area of obstruction reported. Will attempt limited prep with Fleets enema. Will start patient on Invanz for coverage of colonic flako. Procedure for flexible sigmoidoscopy reviewed with patient including risks, benefits, and alternatives. These include but are not limited to risks with anesthesia sedation, bleeding, biopsy, perforation, and possible additional procedures including exploratory laparotomy and possible colon resection. Discussed with patient that he will likely need to proceed with colon resection in the near future even if this appears to be non-malignant on endoscopy given his obstructive symptoms. Discussed with him concerns with colon resection and unprepped bowel re: infection and anastomotic leak. Discussed with him possible anastomosis with possible diverting ostomy. All questions answered. Patient inquired re: expected postoperative course/ care as he has children ranging from 3 to 22 y/o at home and his is to be scheduled for gastric bypass surgery in the near future as well. We discussed expected hospital stay of ~ 1 week or so after a colon resection and restrictions on lifting/activity x 6 weeks. Patient agreeable with plans as outlined above. Will plan to proceed with flexible sigmoidoscopy 05/30/18. Further recommendations pending flexible sigmoidoscopy. History of Present Illness Chief Complaint: Abdominal pain Narrative: 42 y/o male who was sent by his PCP for an outpatient CT abd/pelvis today and subsequently sent to the ED for admission re: colonic obstruction. Patient notes a history of diverticulitis diagnosed on CT scan in 2003 for which he was hospitalized for IV antibiotics x 1 week. He had no further symptoms until March 2018. For the past 2 months, he has been having worsening constipation and spasms of crampy, left-sided abdominal pain. Nausea and chills are associated with the pain when it is severe. He denies fevers. He denies melena or hematochezia. Stools recently look like rabbit pellets. He has not had a BM x 3 days. He is passing some flatus which he notes is mostly at night and foul-smelling. He notes weight loss of 20# over the past 2 months. He is eating, but not as much as usual. He last ate supper on 05/28/18. He has never had a colonoscopy. He denies any known [facility] colon cancer or IBD. He was seen by Dr. Johnston's PA last week to be scheduled for a colonoscopy but this was deferred for 6-8 weeks for a presumed flare-up of diverticulitis. He was started on po antibiotics and is on day # 7 of a 10-day course of Cipro and Flagyl. He did not take his Cipro or Flagyl today. He has not been on any other antibiotics these past 2 months. He notes baseline discomfort rated ~ 4 with more severe intermittent spasms. Review of Systems Review of Systems All systems reviewed & are unremarkable except as noted in HPI and below Constitutional Reports chills, Denies fever(s) and Reports snoring Respiratory Reports snoring and Reports other (sleep apnea, uses CPAP) Gastrointestinal Reports abdominal pain, Denies melena, Denies hematochezia, Reports change in bowel habits, Reports constipation, Reports cramping, Denies loose stools, Reports nausea (associated with pain) and Denies vomiting PFSH Sleep apnea (Acute) Family History Father Diabetes Mother Depression H/O left knee surgery (Acute) Family History Father Diabetes Mother Depression Social History Smoking/Tobacco Use Status: Former Tobacco Use alcohol intake: current alcohol intake frequency: 0-2 drinks per day Alcohol type: beer substance use type: does not use Surgical History H/O left knee surgery (Acute) Social History Smoking/Tobacco Use Status: Former Tobacco Use alcohol intake: current alcohol intake frequency: 0-2 drinks per day Alcohol type: beer substance use type: does not use Meds Home Medications Medication Instructions Recorded Confirmed Type acetaminophen [Tylenol Arthritis 650 mg PO Q8H PRN PRN 05/08/18 05/29/18 History Pain] magnesium citrate 240 ml PO ONCE PRN 05/08/18 05/22/18 History eizimuez-pay-ijskp-vit K-lycop 1 tab PO DAILY 05/08/18 05/22/18 History [Men's 50 Plus Multivitamin] polyethylene glycol 3350 [ClearLax] 1 dose PO PRN 05/08/18 05/22/18 History ciprofloxacin HCl [Cipro] 500 mg PO BID 05/29/18 05/29/18 History metronidazole [Flagyl] 500 mg PO TID 05/29/18 05/29/18 History Allergies Allergy/AdvReac Type Severity Reaction Status Date / Time No Known Allergies Allergy Unverified 05/08/18 15:56 Exam Const General: cooperative, no acute distress and well developed Nutritional Appearance: well nourished Orientation: alert and oriented x3 HENMT Head: normocephalic and atraumatic Eyes Sclera: sclerae normal Neck Neck: no lymphadenopathy, trachea midline and no JVD Resp Effort & Inspection: normal respiratory effort and able to speak in complete sentences Auscultation: clear to auscultation bilaterally Cardio Jugular venous pressure: no JVD Rate: regular rate Rhythm: regular rhythm GI Inspection: non-distended, obesity and no scars Palpation: soft, not rigid and tender in the LLQ and suprapubicly Auscultation: normal bowel sounds Skin General skin exam: no rashes or lesions noted and no jaundice Neuro General: alert and oriented x3 Speech: speech normal Results Imaging Abdomen CT scan report/results: report reviewed and image reviewed CT scan - pelvis: report reviewed and image reviewed Imaging Studies: Patient Name: Patricia DOW #: [id number]: DI Ordering Provider: Clarissa Sheridan : REG CLI Primary Care Provider: Clarissa Sheridan Date of Exam: 05/29/18ex: M : 1975Age: 42 Exam(s) a CT:CT abdomen & pelvis w SYMPTOMS/DIAGNOSIS: ABD PAIN GENERALIZED SEVERE , R10.84, ? DIVERTICULITIS CT OF THE ABDOMEN AND PELVIS: Comparison is made with [id number]. Images were performed from the lung bases through the ischial tuberosities after IV and oral contrast. There is again noted to be a long segment of abnormal wall thickening in the proximal sigmoid just after the junction of the descending and sigmoid colon. There is dilatation of the colon proximal to this area containing a large quantity of stool. The findings are highly suspicious for an obstructing tumor. The findings appear relatively unchanged compared with exams from 17Oct and [id number]. The approximate length of the abnormal length is 8 cm. There are few tiny lymph nodes in the adjacent mesentery. No free air or free fluid is seen. The lung bases are clear. The heart size appears normal. No pleural or pericardial effusions are seen. The liver shows diffuse fatty infiltration. There is a 1 cm low density lesion at the superior right lobe of the liver, just below the diaphragm which is indeterminate. No biliary dilatation is seen. The spleen, pancreas, gallbladder, adrenals and kidneys are unremarkable. The aorta is normal in diameter and shows mild calcification. The appendix appears normal. The prostate is normal in size and shows a few calcifications. The bladder is unremarkable. There is no small bowel dilatation. IMPRESSION: Colonic dilatation with a focal transition point which has a mass like appearance at the junction of the descending and sigmoid colon. The findings are suspicious for colon carcinoma. There are diverticula, however, no signs of inflammation are noted. [id number]: Total DLP = 1404.28 mGy-cm Ordered By: Clarissa Sheridan CC: Dictated By: Kelsey Melvin M.D. 05/29/18 8640 <Electronically signed by Kelsey Melvin M.D.> 05/29/18 1602 Transcribed By: Eneida Lo 05/29/18 1507 This is privileged, confidential information intended only for the provider named. Any use or distribution by any person other than this provider is strictly prohibited. If you receive this report in error, please notify us immediately at [phone] and return the original report to us at the address above. Thank-you. Labs : 05/29/18 15:35 05/29/18 15:35 Laboratory Results - last 24 hr 05/29/18 05/29/18 15:35 15:35 WBC 6.58 RBC 5.30 Hgb 15.6 Hct 46.1 MCV 87.0 MCH 29.4 MCHC 33.8 RDW 14.4 H Plt Count 214 MPV 10.1 Immature Gran % 0.2 Neutrophils % 64.4 Lymphocytes % 27.2 Monocytes % 7.1 Eosinophils % 0.8 Basophils % 0.3 Absolute Neutrophils 4.24 Absolute Lymphocytes 1.79 Absolute Monocytes 0.47 Absolute Eosinophils 0.05 Absolute Basophils 0.02 Sodium 137 Potassium 4.0 Chloride 101 Carbon Dioxide 27.7 Anion Gap 8.3 BUN 11 Creatinine 0.97 Estimated GFR/1.73 m2 >= 60.00 Glucose 88 Lactate 0.9 Calcium 9.0 Magnesium 2.0 Total Bilirubin 0.4 AST 34 ALT 68 Alkaline Phosphatase 52 Total Protein 7.1 Albumin 3.9 Lipase 206 Last Vital Signs Temp 36.5 C 05/29/18 17:40 Pulse 72 05/29/18 17:40 Resp 16 05/29/18 17:25 BP 123/88 05/29/18 17:40 Pulse Ox 98 05/29/18 17:40
[2018-05-29] MEDS: Normal Saline Flush 10 ML SYR IVP ×3 (19:02→23:29)
[2018-05-29] MEDS: Lactated Ringers 1,000 ML 125 ML IV (19:06)
--- NOTE | 2018-05-29 19:07 | HPE_ITS ---
Date of service: 05/29/18 Time of Service: 18:54 Assessment and Plan (1) Colonic obstruction: Current visit: Yes Status: Acute 42 y/o male who presents with findings of colonic obstruction. Dilated colon full of stool proximally with transition zone ~ 8 cm in length at the descending colon and sigmoid colon junction noted on CT. Patient has a prior history of diverticulitis and a 2 month h/o bowel symptoms. He has had a 7 day course of oral antibiotics without improvement. Differential diagnosis includes stricture formation secondary to recurrent diverticulitis vs. neoplasm/ colon cancer. CT findings reviewed with patient. Recommended flexible sigmoidoscopy for further evaluation of area of obstruction reported. Will attempt limited prep with Fleets enema. Will start patient on Invanz for coverage of colonic flako. Procedure for flexible sigmoidoscopy reviewed with patient including risks, benefits, and alternatives. These include but are not limited to risks with anesthesia sedation, bleeding, biopsy, perforation, and possible additional procedures including exploratory laparotomy and possible colon resection. Discussed with patient that he will likely need to proceed with colon resection in the near future even if this appears to be non- malignant on endoscopy given his obstructive symptoms. Discussed with him concerns with colon resection and unprepped bowel re: infection and anastomotic leak. Discussed with him possible anastomosis with possible diverting ostomy. All questions answered. Patient inquired re: expected postoperative course/ care as he has children ranging from 3 to 22 y/o at home and his is to be scheduled for gastric bypass surgery in the near future as well. We discussed expected hospital stay of ~ 1 week or so after a colon resection and restrictions on lifting/activity x 6 weeks. Patient agreeable with plans as outlined above. Will plan to proceed with flexible sigmoidoscopy 05/30/18. Further recommendations pending flexible sigmoidoscopy. History of Present Illness Chief Complaint: Abdominal pain Narrative: 42 y/o male who was sent by his PCP for an outpatient CT abd/pelvis today and subsequently sent to the ED for admission re: colonic obstruction. Patient notes a history of diverticulitis diagnosed on CT scan in 2003 for which he was hospitalized for IV antibiotics x 1 week. He had no further symptoms until March 2018. For the past 2 months, he has been having worsening constipation and spasms of crampy, left-sided abdominal pain. Nausea and chills are associated with the pain when it is severe. He denies fevers. He denies melena or hematochezia. Stools recently look like rabbit pellets. He has not had a BM x 3 days. He is passing some flatus which he notes is mostly at night and foul-smelling. He notes weight loss of 20# over the past 2 months. He is eating, but not as much as usual. He last ate supper on . He has never had a colonoscopy. He denies any known [facility] colon cancer or IBD. He was seen by Dr. Johnston's PA last week to be scheduled for a colonoscopy but this was deferred for 6-8 weeks for a presumed flare-up of diverticulitis. He was started on po antibiotics and is on day # 7 of a 10-day course of Cipro and Flagyl. He did not take his Cipro or Flagyl today. He has not been on any other antibiotics these past 2 months. He notes baseline discomfort rated ~ 4 with more severe intermittent spasms. Review of Systems Review of Systems All systems reviewed & are unremarkable except as noted in HPI and below Constitutional Reports chills, Denies fever(s) and Reports snoring Respiratory Reports snoring and Reports other (sleep apnea, uses CPAP) Gastrointestinal Reports abdominal pain, Denies melena, Denies hematochezia, Reports change in bowel habits, Reports constipation, Reports cramping, Denies loose stools, Reports nausea (associated with pain) and Denies vomiting PFSH Sleep apnea (Acute) Family History Father Diabetes Mother Depression H/O left knee surgery (Acute) Family History Father Diabetes Mother Depression Social History Smoking/Tobacco Use Status: Former Tobacco Use alcohol intake: current alcohol intake frequency: 0-2 drinks per day Alcohol type: beer substance use type: does not use Surgical History H/O left knee surgery (Acute) Social History Smoking/Tobacco Use Status: Former Tobacco Use alcohol intake: current alcohol intake frequency: 0-2 drinks per day Alcohol type: beer substance use type: does not use Meds Home Medications Medication Instructions Recorded Confirmed Type acetaminophen [Tylenol Arthritis 650 mg PO Q8H PRN PRN 05/08/18 05/29/18 History Pain] magnesium citrate 240 ml PO ONCE PRN 05/08/18 05/22/18 History qbzutpdm-uwi-ieqhl-vit K-lycop 1 tab PO DAILY 05/08/18 05/22/18 History [Men's 50 Plus Multivitamin] polyethylene glycol 3350 [ClearLax] 1 dose PO PRN 05/08/18 05/22/18 History ciprofloxacin HCl [Cipro] 500 mg PO BID 05/29/18 05/29/18 History metronidazole [Flagyl] 500 mg PO TID 05/29/18 05/29/18 History Allergies Allergy/AdvReac Type Severity Reaction Status Date / Time No Known Allergies Allergy Unverified 05/08/18 15:56 Exam Const General: cooperative, no acute distress and well developed Nutritional Appearance: well nourished Orientation: alert and oriented x3 HENMT Head: normocephalic and atraumatic Eyes Sclera: sclerae normal Neck Neck: no lymphadenopathy, trachea midline and no JVD Resp Effort & Inspection: normal respiratory effort and able to speak in complete sentences Auscultation: clear to auscultation bilaterally Cardio Jugular venous pressure: no JVD Rate: regular rate Rhythm: regular rhythm GI Inspection: non-distended, obesity and no scars Palpation: soft, not rigid and tender in the LLQ and suprapubicly Auscultation: normal bowel sounds Skin General skin exam: no rashes or lesions noted and no jaundice Neuro General: alert and oriented x3 Speech: speech normal Results Imaging Abdomen CT scan report/results: report reviewed and image reviewed CT scan - pelvis: report reviewed and image reviewed Imaging Studies: Patient Name: Patricia DOW #: [id number]: DI Ordering Provider: Clarissa Sheridan : REG CLI Primary Care Provider: Clarissa Sheridan Date of Exam: 05/29/18ex: M : 1975Age: 42 Exam(s) a CT:CT abdomen & pelvis w SYMPTOMS/DIAGNOSIS: ABD PAIN GENERALIZED SEVERE , R10.84, ? DIVERTICULITIS CT OF THE ABDOMEN AND PELVIS: Comparison is made with [id number]. Images were performed from the lung bases through the ischial tuberosities after IV and oral contrast. There is again noted to be a long segment of abnormal wall thickening in the proximal sigmoid just after the junction of the descending and sigmoid colon. There is dilatation of the colon proximal to this area containing a large quantity of stool. The findings are highly suspicious for an obstructing tumor. The findings appear relatively unchanged compared with exams from 17Oct and [id number]. The approximate length of the abnormal length is 8 cm. There are few tiny lymph nodes in the adjacent mesentery. No free air or free fluid is seen. The lung bases are clear. The heart size appears normal. No pleural or pericardial effusions are seen. The liver shows diffuse fatty infiltration. There is a 1 cm low density lesion at the superior right lobe of the liver, just below the diaphragm which is indeterminate. No biliary dilatation is seen. The spleen, pancreas, gallbladder, adrenals and kidneys are unremarkable. The aorta is normal in diameter and shows mild calcification. The appendix appears normal. The prostate is normal in size and shows a few calcifications. The bladder is unremarkable. There is no small bowel dilatation. IMPRESSION: Colonic dilatation with a focal transition point which has a mass like appearance at the junction of the descending and sigmoid colon. The findings are suspicious for colon carcinoma. There are diverticula, however, no signs of inflammation are noted. [id number]: Total DLP = 1404.28 mGy-cm Ordered By: Clarissa Sheridan CC: Dictated By: Kelsey Melvin M.D. 05/29/18 0949 <Electronically signed by Kelsey Melvin M.D.> 05/29/18 1602 Transcribed By: Eneida Lo 05/29/18 1507 This is privileged, confidential information intended only for the provider named. Any use or distribution by any person other than this provider is strictly prohibited. If you receive this report in error, please notify us immediately at [phone] and return the original report to us at the address above. Thank-you. Labs : 05/29/18 15:35 05/29/18 15:35 Laboratory Results - last 24 hr 05/29/18 05/29/18 15:35 15:35 WBC 6.58 RBC 5.30 Hgb 15.6 Hct 46.1 MCV 87.0 MCH 29.4 MCHC 33.8 RDW 14.4 H Plt Count 214 MPV 10.1 Immature Gran % 0.2 Neutrophils % 64.4 Lymphocytes % 27.2 Monocytes % 7.1 Eosinophils % 0.8 Basophils % 0.3 Absolute Neutrophils 4.24 Absolute Lymphocytes 1.79 Absolute Monocytes 0.47 Absolute Eosinophils 0.05 Absolute Basophils 0.02 Sodium 137 Potassium 4.0 Chloride 101 Carbon Dioxide 27.7 Anion Gap 8.3 BUN 11 Creatinine 0.97 Estimated GFR/1.73 m2 >= 60.00 Glucose 88 Lactate 0.9 Calcium 9.0 Magnesium 2.0 Total Bilirubin 0.4 AST 34 ALT 68 Alkaline Phosphatase 52 Total Protein 7.1 Albumin 3.9 Lipase 206 Last Vital Signs Temp 36.5 C 05/29/18 17:40 Pulse 72 05/29/18 17:40 Resp 16 05/29/18 17:25 BP 123/88 05/29/18 17:40 Pulse Ox 98 05/29/18 17:40
[2018-05-30] VITALS (8 sets, daily range): BP systolic 105–135; BP diastolic 67–86; PULSE 57–73; RESP 15–20; TEMP 36.1–36.8; O2SAT 95–97
[2018-05-30] MEDS: Lactated Ringers 1,000 ML 125 ML IV ×2 (03:38→15:26)
[2018-05-30] MEDS: HYDROmorphone 2 MG/ML VIAL 0.5 MG IVP ×3 (03:38→14:15)
[2018-05-30] MEDS: Normal Saline Flush 10 ML SYR IVP ×6 (03:38→19:56)
[2018-05-30] MEDS: Ketorolac 30 MG/ML VIAL IVP ×3 (03:58→19:56)
--- NOTE | 2018-05-30 08:59 | PDOC.CMIN ---
- If Service Date Differs Date of service: 05/30/18 Time of Service: 08:59 Care Management Initial Assess PAST MEDICAL HISTORY/PAST SURGICAL HISTORY:: Diverticulitis, sleep apnea. Surgical hx: knee surgery (left). PREVIOUS FUNCTIONAL STATUS/SOCIAL/FAMILY SUPPORTS:: Gurpreet resides in [place] with his , Keli, and their four children, ages 22, 20, 17, and 3. 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 He is independent with his ADLs and transportation. CURRENT FUNCTIONAL STATUS:: Gurpreet is lying in bed prior to his scheduled sigmoidoscopy when CM visits this morning. He is engaged in conversation, makes good eye contact, and is talkative. Gurpreet reports that life has been stressful with four children (the oldest of whom has developmental disbabilities), and a , Keli, who has had multiple health problems related to hernia. Gurpreet reports that he has all he and his family need, even following his 'custodial' from tank truck operator, as Keli is a greater saver. Gurpreet leaves for surgery shortly after CM's visit; CM will check in later in the day for continued conversation. ADVANCE DIRECTIVES:: None on file at [facility]. Has patient been provided with information about the portal?: Yes Did the patient sign up for the portal?: No CODE STATUS:: Full Code INSURANCE COVERAGE / FINANCIAL ISSUES:: Medicaid. CURRENT HOME/COMMUNITY SERVICES/EQUIPMENT:: No current home or community equipment. PRIMARY CARE PHYSICIAN:: Clarissa Sheridan. POTENTIAL DISCHARGE NEEDS:: Follow up appointment with surgical services. PATIENT/FAMILY EDUCATION NEEDS:: Discharge education, any limitations, and follow up care. Ask Me Three discussion. ANTICIPATED BARRIERS TO DISCHARGE:: No anticipated barriers to discharge. TRANSPORTATION:: To be determined. PLAN:: Hector will discharge when medically ready per MD. Anticipate patient will discharge with no services and follow up with surgical services. CM will continue to offer support to patient and care team regarding discharge planning and dispostion.
--- NOTE | 2018-05-30 09:08 | INITIAL_ITS ---
- If Service Date Differs Date of service: 05/30/18 Time of Service: 08:59 Care Management Initial Assess PAST MEDICAL HISTORY/PAST SURGICAL HISTORY:: Diverticulitis, sleep apnea. Surgical hx: knee surgery (left). PREVIOUS FUNCTIONAL STATUS/SOCIAL/FAMILY SUPPORTS:: Gurpreet resides in [place] with his , Keli, and their four children, ages 22, 20, 17, and 3. 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 He is independent with his ADLs and transportation. CURRENT FUNCTIONAL STATUS:: Gurpreet is lying in bed prior to his scheduled sigmoidoscopy when CM visits this morning. He is engaged in conversation, makes good eye contact, and is talkative. Gurpreet reports that life has been stressful with four children (the oldest of whom has developmental disbabilities), and a , Keli, who has had multiple health problems related to hernia. Gurpreet reports that he has all he and his family need, even following his 'fci' from live truck technician, as Keli is a greater saver. Gurpreet leaves for surgery shortly after CM's visit; CM will check in later in the day for continued conversation. ADVANCE DIRECTIVES:: None on file at [facility]. Has patient been provided with information about the portal?: Yes Did the patient sign up for the portal?: No CODE STATUS:: Full Code INSURANCE COVERAGE / FINANCIAL ISSUES:: Medicaid. CURRENT HOME/COMMUNITY SERVICES/EQUIPMENT:: No current home or community equipment. PRIMARY CARE PHYSICIAN:: Clarissa Sheridan. POTENTIAL DISCHARGE NEEDS:: Follow up appointment with surgical services. PATIENT/FAMILY EDUCATION NEEDS:: Discharge education, any limitations, and follow up care. Ask Me Three discussion. ANTICIPATED BARRIERS TO DISCHARGE:: No anticipated barriers to discharge. TRANSPORTATION:: To be determined. PLAN:: Hector will discharge when medically ready per MD. Anticipate patient will discharge with no services and follow up with surgical services. CM will continue to offer support to patient and care team regarding discharge planning and dispostion.
[2018-05-30] MEDS: Lactated Ringers 1,000 ML 80 ML IV (09:56)
--- NOTE | 2018-05-30 10:42 | COLE_ITS ---
Date of service: 05/30/18 Time of Service: 10:39 Colonoscopy Report Date of procedure: 05/30/18 Pre-op diagnosis general: Colonic obstruction Post-op diagnosis procedure note: other (Colonic stricture) Procedure: Flexible sigmoidoscopy Surgeon: Meagan Duenas Anesthesia proc note operative: MAC Estimated blood loss (mL): 0 Pathology: none sent Complications: None Disposition: PACU Indications: 42 y/o male admitted through the ED with findings of colonic obstruction on CT. Patient has a history of diverticulitis. He has had recurrent, intermittent spasms of left lower quadrant pain. He presents at this time for a flexible sigmoidoscopy for further evaluation. Endoscopic procedure including risks, benefits, and alternatives discussed with patient and informed consent obtained prior to endoscopy. Prep: Other (Fleets enema x 1) Findings: Edematous colonic mucosa with strictured segment at approximately 40 cm. No obvious mucosal lesions or masses in this area. Scope able to be advanced proximal to area of stricture. Procedure Description: Patient was brought to the endoscopy suite and placed on his CPAP machine. Time out performed per protocol. Patient was placed in the left lateral decubitus position and placed under monitored anesthesia care. Digital rectal exam performed. Normal rectal tone noted. No rectal masses palpated. Colonoscope was advanced with minimal insufflation up to 45 cm. There is minimal semi-solid residual stool in the sigmoid colon and rectum. At approximately 40-45 cm, there is an area of narrowing noted consistent with stricture. The colonic mucosa is noted to be mildly erythematous and edematous. No discrete mucosal lesion or irregularity seen in this area. The scope was able to be gently advanced proximal to this area. The descending colon proximal to the stricture was noted to be dilated with liquid, greenish- brown stool in the lumen. Several diverticuli were noted in this area. The area of stricture was carefully examined as the scope was withdrawn. No other abnormality noted in this area. The colon was decompressed as the scope was withdrawn. Retroflexion was performed in the rectum. No rectal abnormality noted. Scope was removed. Patient tolerated the procedure well and was sent to recovery in satisfactory condition.
--- NOTE | 2018-05-30 13:07 | W.PM.PROGNOT ---
Date of Service Date of service: 05/30/18 Time of Service: 13:07 Assessment and Plan (1) Colonic obstruction: Current visit: Yes Status: Acute 42 y/o male who presents with findings of colonic obstruction. Flexible sigmoidoscopy this am revealed findings consistent with a colonic stricture at ~ 40 cm. No mucosal lesion or tumor was appreciated so no biopsies were taken. I did emphasize to the patient that at some point in the near future he will need to have a complete colonoscopy for colon cancer screening. However, he is significantly symptomatic from this colonic stricture and will likely need to have the area of stricture resected sooner than later. As he is not completely obstructed and I was able to pass the colonoscope proximally, I recommended a gentle, slow bowel prep over the next couple days and staying on a liquid diet until he can be scheduled for surgery. He is not completely obstructed and is not septic so the surgery does not need to be performed emergently. Discussed with Dr. Johnston. There does not appear to be an available time to schedule surgery on Saturday. Anticipate discharge home over the weekend on a liquid diet if the patient's symptoms are improved with close follow-up in the office on 06/02/[address] Gibbons to schedule surgery in the near future. Further recommendations pending clinical course. All questions answered. Patient appeared to understand and agree with the discussion as outlined above. Subjective Interval history since last seen: Patient taking po clear liquids without problems at this time. Notes that he passed a large amount of flatus after endoscopy. Still feels some abdominal discomfort but better than yesterday. Discussed endoscopy findings with him. There appears to be a colonic stricture with edema/erythema secondary to diverticulitis. No obvious mucosal lesion or tumor seen in this area. Exam Const General: cooperative, comfortable and no acute distress Orientation: alert and oriented x3 Eyes Sclera: sclerae normal Resp Effort & Inspection: normal respiratory effort, able to speak in complete sentences and no respiratory distress GI Palpation: soft and not rigid Objective Objective Clinical Data: Abnormal lab results 05/29/18 Range/Units 15:35 RDW 14.4 H (11.8-14.1) % Vital Signs Temperature 36.7 C 05/30/18 12:06 Temperature Source Skin 05/30/18 12:06 Pulse 57 L 05/30/18 12:06 Pulse Rhythm Regular 05/30/18 04:00 Respiratory Rate 15 05/30/18 12:06 Respiratory Effort Non-Labored 05/30/18 04:00 Respiratory Depth Normal 05/30/18 04:00 Respiratory Pattern Normal 05/30/18 04:00 Blood Pressure 125/79 05/30/18 12:06 Blood Pressure Position Sitting 05/29/18 15:05 Pulse Oximetry 96 05/30/18 12:06 Oxygen Delivery Method Room Air 05/30/18 12:06 Oxygen Flow Rate 0 05/30/18 12:06 Pain Level 2 05/30/18 12:26 Comment 05/30/18 04:00 Intake & Output 05/29/18 05/30/18 05/30/18 23:59 11:59 23:59 Intake Total 1918.75 / 1918.75 2120.25 / 2120.25 Output Total 300 / 300 1075 / 1075 Balance 1618.75 / 1618.75 1045.25 / 1045.25 Weight 109.316 kg Intake: IV 1258.75 / 1258.75 2120.25 / 2120.25 Oral 660 / 660 Output: Urine 300 / 300 1075 / 1075 Other: Urine Color Brown Yellow Urine Appearance Clear Clear Urine Odor Normal Normal Comment light tea colored urine Void x1 in the toilet. Stool Size Smear Stool Characteristics Soft Liquid Voiding Methods Toilet Toilet Laboratory Results WBC 6.58 k/cumm (4.4-10.8) 05/29/18 15:35 RBC 5.30 m/cumm (4.50-6.00) 05/29/18 15:35 Hgb 15.6 g/dL (13.5-17.5) 05/29/18 15:35 Hct 46.1 % (40.0-50.0) 05/29/18 15:35 MCV 87.0 fL (80-95) 05/29/18 15:35 MCH 29.4 pg (27.0-33.0) 05/29/18 15:35 MCHC 33.8 g/dL (32.0-36.0) 05/29/18 15:35 RDW 14.4 % (11.8-14.1) H 05/29/18 15:35 Plt Count 214 x1000/uL (130-400) 05/29/18 15:35 MPV 10.1 fL (8.0-11.0) 05/29/18 15:35 Immature Gran % 0.2 05/29/18 15:35 Neutrophils % 64.4 05/29/18 15:35 Lymphocytes % 27.2 05/29/18 15:35 Monocytes % 7.1 05/29/18 15:35 Eosinophils % 0.8 05/29/18 15:35 Basophils % 0.3 05/29/18 15:35 Absolute Neutrophils 4.24 k/cumm (1.2-6.7) 05/29/18 15:35 Absolute Lymphocytes 1.79 k/cumm (1.2-3.4) 05/29/18 15:35 Absolute Monocytes 0.47 k/cumm (0.11-0.7) 05/29/18 15:35 Absolute Eosinophils 0.05 k/cumm (0.0-0.7) 05/29/18 15:35 Absolute Basophils 0.02 k/cumm (0.0-0.2) 05/29/18 15:35 Sodium 137 mmol/L (136-145) 05/29/18 15:35 Potassium 4.0 mmol/L (3.5-5.1) 05/29/18 15:35 Chloride 101 mmol/L (98-107) 05/29/18 15:35 Carbon Dioxide 27.7 mmol/L (21.0-32.0) 05/29/18 15:35 Anion Gap 8.3 mmol/L (3-11) 05/29/18 15:35 BUN 11 mg/dL (7-18) 05/29/18 15:35 Creatinine 0.97 mg/dL (0.70-1.30) 05/29/18 15:35 Estimated GFR/1.73 m2 >= 60.00 (mL/min/1.73m2) 05/29/18 15:35 Glucose 88 mg/dL (70-100) 05/29/18 15:35 Lactate 0.9 mmol/L (0.6-1.4) 05/29/18 15:35 Calcium 9.0 mg/dL (8.5-10.1) 05/29/18 15:35 Magnesium 2.0 mg/dL (1.8-2.4) 05/29/18 15:35 Total Bilirubin 0.4 mg/dL (0.2-1.0) 05/29/18 15:35 AST 34 U/L (15-37) 05/29/18 15:35 ALT 68 U/L (12-78) 05/29/18 15:35 Alkaline Phosphatase 52 U/L (46-116) 05/29/18 15:35 Total Protein 7.1 g/dL (6.4-8.2) 05/29/18 15:35 Albumin 3.9 g/dL (3.4-5.0) 05/29/18 15:35 Lipase 206 U/L (73-393) 05/29/18 15:35
--- NOTE | 2018-05-30 14:51 | PHARADMIT ---
Addendum entered by Mike Pelayo III 05/31/18 10:42: notes that patient will be discharge over the weekend on a clear diet. VS-OK No Labs BM yesterday. Had breakfast 100% Original Note: Admission Pharmacy Clinical Review bowel obstruction Code Status Full Code Current Weight 109.316 kg Renally Cleared and Narrow Therapeutic Index Meds Crcl ~100.00 mL/min current meds okay QTc Value / Action Taken QTc 393 BP Control, Fever BP 125/79 afebrile Electrolytes reviewed within normal limits DVT Prophylaxis none Opiate Usage / Scheduled Bowel Regimen Ordered prn/scheduled Plt/SCr for Heparin / Enoxaparin plt 214 SCr 0.97 INR for Warfarin n/a H/H stable, WBC/Bands h/h 15.6/46.1 wbc 6.58 Antibiotic appropriateness ertapenem (today will be 2nd dose, got dose yesterday was discontinued then ordered again) Cultures and Sensitivities n/a Surgical ABX d/c within 24 hr n/a DM control / Insulin Dosing BG 88 n/a Heart Failure (Check EF%) (INGRID's, B-Block, Diuretics) none IV to PO Switch n/a Home Meds Reviewed separate admin of ciprofloxacin from multivitamin and magnesium citrate Home Meds Not Ordered acetaminophen, ciprofloxacin and metronidazole (has other abx ordered), multivitamin, magnesium citrate Comments
[2018-05-30] MEDS: Polyethylene Glycol 3350 17 GM PACKET PO (19:39)
[2018-05-31 00:05] VITALS: BP 107/68; PULSE 65; RESP 18; TEMP 36.1; O2SAT 98
[2018-05-31] MEDS: Lactated Ringers 1,000 ML 80 ML IV ×2 (01:53→16:15)
[2018-05-31] MEDS: Normal Saline Flush 10 ML SYR IVP ×5 (02:01→22:28)
[2018-05-31] MEDS: HYDROmorphone 2 MG/ML VIAL 0.5 MG IVP ×3 (02:01→13:41)
[2018-05-31 03:55] VITALS: BP 123/75; PULSE 54; RESP 16; TEMP 36.8; O2SAT 96
[2018-05-31 07:24] VITALS: BP 120/80; PULSE 77; RESP 16; TEMP 35.6; O2SAT 94
--- NOTE | 2018-05-31 08:04 | PDOC.CMDIS ---
LACE Index Scoring Tool - Questions: Length of Stay (in days): 3 Acuity (Admit via E.D.?): Yes E.D. Visits: 3 - Answers: Total Score: 9 Risk of Readmission: Low Risk Care Management Discharge Reason for Hospitalization: Sleep apnea. Surgical hx: knee surgery (left). Discharge Plan: Per MD: Anticipate discharge home over the weekend on a liquid diet if the patient's symptoms are improved with close follow-up in the office on 06/02/[address] Gibbons to schedule surgery in the near future. Further recommendations pending clinical course.. Hector will discharge home when medically ready per MD. No additional services anticipated though Hector will follow up with surgical services with surgerical intervention likely scheduled in near future. He will transport via private vehicle with his . Patient/Family Education Needs: Review of discharge instructions; discuss Ask Me Three.
[2018-05-31] MEDS: Polyethylene Glycol 3350 17 GM PACKET PO ×2 (08:07→20:14)
[2018-05-31] MEDS: Ketorolac 30 MG/ML VIAL IVP ×3 (08:08→22:27)
[2018-05-31 11:18] VITALS: BP 133/83; PULSE 60; RESP 16; TEMP 36.8; O2SAT 94
--- NOTE | 2018-05-31 11:29 | PGE_ITS ---
Date of Service Date of service: 05/31/18 Time of Service: 11:26 Assessment and Plan (1) Colonic obstruction: Current visit: Yes Status: Acute 42 y/o male who presents with findings of colonic obstruction. Flexible sigmoidoscopy this am revealed findings consistent with a colonic stricture at ~ 40 cm. No mucosal lesion or tumor was appreciated so no biopsies were taken. I did emphasize to the patient that at some point in the near future he will need to have a complete colonoscopy for colon cancer screening. However, he is significantly symptomatic from this colonic stricture and will likely need to have the area of stricture resected sooner than later. As he is not completely obstructed and I was able to pass the colonoscope proximally, I recommended a gentle, slow bowel prep over the next couple days and staying on a liquid diet until he can be scheduled for surgery. He is not completely obstructed and is not septic so the surgery does not need to be performed emergently. Discussed with Dr. Johnston. There does not appear to be an available time to schedule surgery on Saturday. Anticipate discharge home over the weekend on a liquid diet if the patient's symptoms are improved with close follow-up in the office on 04/[address] Gibbons to schedule surgery in the near future. Also discussed [facility] Dr. Gibbons. Further recommendations pending clinical course. Will follow- up labs in am. Will try soap suds enema. Discussed with him that unprepped bowel means a colostomy iis more likely. Patient wishes to try soap suds enema. All questions answered. Patient appeared to understand and agree with the discussion as outlined above. Subjective Interval history since last seen: Still having crampy left sided pain. Passed a small amount of flatus this am and a small amount of stool with Fleets enema yesterday. Patient notes that he had better results with a larger volume enema in the ED 1-2 months ago. Exam Const General: cooperative and no acute distress Nutritional Appearance: obese Orientation: alert and oriented x3 Eyes Sclera: sclerae normal Resp Effort & Inspection: normal respiratory effort and able to speak in complete sentences Cardio Jugular venous pressure: no JVD Rate: regular rate GI Inspection: no scars Palpation: soft, not firm, no guarding, no masses and tender in the LLQ Auscultation: normal bowel sounds Skin General skin exam: no rashes or lesions noted and no jaundice Objective Objective Clinical Data: Vital Signs Temperature 35.6 C L 05/31/18 07:24 Temperature Source Tympanic 05/31/18 07:24 Pulse 77 05/31/18 07:24 Pulse Rhythm Regular 05/31/18 10:54 Respiratory Rate 16 05/31/18 07:24 Respiratory Effort Non-Labored 05/31/18 10:54 Respiratory Depth Normal 05/31/18 10:54 Respiratory Pattern Normal 05/31/18 10:54 Blood Pressure 120/80 05/31/18 07:24 Blood Pressure Position Sitting 05/29/18 15:05 Pulse Oximetry 94 L 05/31/18 07:24 Oxygen Delivery Method Room Air 05/31/18 07:24 Oxygen Flow Rate 0 05/31/18 07:24 Pain Level 6 05/31/18 08:08 Comment 05/31/18 07:24 Intake & Output 05/30/1818 05/31/18 11:59 23:59 11:59 Intake Total 2140.25 / 2140.25 1800.000 / 1800.000 980 / 980 Output Total 1075 / 1075 2600 / 2600 2350 / 2350 Balance 1065.25 / 1065.25 -800.000 / -800.000 -1370 / -1370 Intake: IV 2140.25 / 2140.25 840.000 / 840.000 20 / 20 Oral 960 / 960 960 / 960 Output: Urine 1075 / 1075 2400 / 2400 2350 / 2350 Stool 200 / 200 Other: Urine Color Yellow Straw Yellow Urine Appearance Clear Clear Clear Urine Odor Normal None Normal Comment Void x1 in the toilet. Void x1 in the toilet. x2 voids. Stool Size Smear Stool Characteristics Soft Soft Liquid Liquid Foamy Brown Voiding Methods Toilet Toilet Toilet Laboratory Results WBC 6.58 k/cumm (4.4-10.8) 05/29/18 15:35 RBC 5.30 m/cumm (4.50-6.00) 05/29/18 15:35 Hgb 15.6 g/dL (13.5-17.5) 05/29/18 15:35 Hct 46.1 % (40.0-50.0) 05/29/18 15:35 MCV 87.0 fL (80-95) 05/29/18 15:35 MCH 29.4 pg (27.0-33.0) 05/29/18 15:35 MCHC 33.8 g/dL (32.0-36.0) 05/29/18 15:35 RDW 14.4 % (11.8-14.1) H 05/29/18 15:35 Plt Count 214 x1000/uL (130-400) 05/29/18 15:35 MPV 10.1 fL (8.0-11.0) 05/29/18 15:35 Immature Gran % 0.2 05/29/18 15:35 Neutrophils % 64.4 05/29/18 15:35 Lymphocytes % 27.2 05/29/18 15:35 Monocytes % 7.1 05/29/18 15:35 Eosinophils % 0.8 05/29/18 15:35 Basophils % 0.3 05/29/18 15:35 Absolute Neutrophils 4.24 k/cumm (1.2-6.7) 05/29/18 15:35 Absolute Lymphocytes 1.79 k/cumm (1.2-3.4) 05/29/18 15:35 Absolute Monocytes 0.47 k/cumm (0.11-0.7) 05/29/18 15:35 Absolute Eosinophils 0.05 k/cumm (0.0-0.7) 05/29/18 15:35 Absolute Basophils 0.02 k/cumm (0.0-0.2) 05/29/18 15:35 Sodium 137 mmol/L (136-145) 05/29/18 15:35 Potassium 4.0 mmol/L (3.5-5.1) 05/29/18 15:35 Chloride 101 mmol/L (98-107) 05/29/18 15:35 Carbon Dioxide 27.7 mmol/L (21.0-32.0) 05/29/18 15:35 Anion Gap 8.3 mmol/L (3-11) 05/29/18 15:35 BUN 11 mg/dL (7-18) 05/29/18 15:35 Creatinine 0.97 mg/dL (0.70-1.30) 05/29/18 15:35 Estimated GFR/1.73 m2 >= 60.00 (mL/min/1.73m2) 05/29/18 15:35 Glucose 88 mg/dL (70-100) 05/29/18 15:35 Lactate 0.9 mmol/L (0.6-1.4) 05/29/18 15:35 Calcium 9.0 mg/dL (8.5-10.1) 05/29/18 15:35 Magnesium 2.0 mg/dL (1.8-2.4) 05/29/18 15:35 Total Bilirubin 0.4 mg/dL (0.2-1.0) 05/29/18 15:35 AST 34 U/L (15-37) 05/29/18 15:35 ALT 68 U/L (12-78) 05/29/18 15:35 Alkaline Phosphatase 52 U/L (46-116) 05/29/18 15:35 Total Protein 7.1 g/dL (6.4-8.2) 05/29/18 15:35 Albumin 3.9 g/dL (3.4-5.0) 05/29/18 15:35 Lipase 206 U/L (73-393) 05/29/18 15:35
--- NOTE | 2018-05-31 12:56 | PDOC.CMPRO ---
Care Management Progress Note S/O: Hector continues to be closely monitored. He did struggle today after his shower with what he reported as gas pain when ambulating and required support. He will continue to be closely monitored with follow up labs in the morning. He shared no additional concerns at this time. A: 42 year old male admitted to surgical services at [facility] on 05/29/18 for Bowel Obstruction due to potential neoplasm P: Per MD: Anticipate discharge home over the weekend on a liquid diet if the patient's symptoms are improved with close follow-up in the office on 06/02/[address] Gibbons to schedule surgery in the near future. Further recommendations pending clinical course.. Hector will discharge home when medically ready per MD. No additional services anticipated though Hector will follow up with surgical services with surgerical intervention likely scheduled in near future. He will transport via private vehicle with his . CM will continue to monitor clinical progress and support discharge planning considerations.
[2018-05-31 16:04] VITALS: BP 109/68; PULSE 64; RESP 18; TEMP 36.4; O2SAT 96
[2018-05-31 22:20] VITALS: BP 128/82; PULSE 78; RESP 16; TEMP 36.7; O2SAT 96
[2018-06-01] MEDS: Lactated Ringers 1,000 ML 80 ML IV (05:10)
[2018-06-01] MEDS: Ketorolac 30 MG/ML VIAL IVP ×2 (05:10→12:00)
[2018-06-01 05:14] VITALS: BP 101/64; PULSE 50; RESP 18; TEMP 36.1; O2SAT 97
[2018-06-01 07:10] LABS: Absolute Basophil Count 0.01 k/cumm (0.0-0.2); Absolute Monocyte Count 0.47 k/cumm (0.11-0.7); Absolute Neutrophil Count 3.09 k/cumm (1.2-6.7); Basophils % 0.2; Eosinophils % 1.9; HCT 43.7 % (40.0-50.0); HGB 14.5 g/dL (13.5-17.5); Mean Corp. HGB Concentration 33.2 g/dL (32.0-36.0); Mean Corpuscular Hemoglobin 29.2 pg (27.0-33.0); Mean Corpuscular Volume 88.1 fL (80-95); Mean Platelet Volume 10.4 fL (8.0-11.0); Monocytes % 9.1; Neutrophils % 59.8; Platelet Count 193 x1000/uL (130-400); RBC 4.96 m/cumm (4.50-6.00); RBC Distribution Width 14.5 % (11.8-14.1); White Blood Cell Count 5.17 k/cumm (4.4-10.8)
[2018-06-01 07:16] LABS: Anion Gap 9.7 mmol/L (3-11); BUN 5 mg/dL (7-18); CO2 26.3 mmol/L (21.0-32.0); CREATININE 1.06 mg/dL (0.70-1.30); Calcium 8.7 mg/dL (8.5-10.1); Chloride 106 mmol/L (98-107); Glucose 111 mg/dL (70-100); Potassium 4.2 mmol/L (3.5-5.1); Sodium 142 mmol/L (136-145)
[2018-06-01 07:50] VITALS: BP 123/71; PULSE 75; RESP 16; TEMP 36.6; O2SAT 96
[2018-06-01] MEDS: Polyethylene Glycol 3350 17 GM PACKET PO (08:42)
--- NOTE | 2018-06-01 10:36 | W.PM.DS.N ---
Date of service: 06/01/18 Time of Service: 10:36 DS: Diagnosis Discharge Diagnosis (1) Colonic obstruction: Status: Acute Discharge Plan Disposition Patient Disposition: HOME Condition: Stable Discharge Details Chief Complaint: Abd Prob Reason For Visit: BOWEL OBSTRUCTION DUE TO POTENTIAL NEOPLASM Admit Date/Time: 05/29/18 16:44 Admit Provider: Meagan Duenas Attending Provider: Meagan Duenas Primary Care Provider: Clarissa Sheridan ED Provider: Deshawn Law Hospital Course Hospital Course: 42 y/o male admitted through the ED on 05/29/18 for colonic obstruction diagnosed on CT. Differential diagnosis included neoplasm vs. stricture. Patient underwent a flexible sigmoidoscopy on 05/30/18 which revealed a stricture at ~ 40 cm. No obvious mucosal lesion or mass seen. Colonoscope was able to be advanced just proximal to the stricture. Stricture presumably related to diverticular disease. He has been on Invanz in the hospital and was on Cipro/Flagyl as an outpatient prior. He has completed 10 days of antibiotics at this point. Patient has been on a clear liquid diet and gentle bowel prep with Miralax and enemas for probable colon resection next week. Patient discussed with Drs. Johnston and Shai. Patient feels much better 06/01/18. He tolerated soap suds enema well 05/31/18 with good results. He continues to pass flatus. His abdominal discomfort has subsided and he has not required narcotic pain meds today. He is to stay on a clear liquid diet after discharge. He is to follow-up in the office with Dr. Gibbons on 06/02/18. Surgery is tentatively to be planned for 06/03/18. Home Meds and New Rx's Prescriptions: Continue acetaminophen [Tylenol Arthritis Pain] 650 mg Tablet Extended Release 650 mg PO Q8H PRN PRNRF: 0 magnesium citrate Solution 240 ml PO ONCE PRNRF: 0 polyethylene glycol 3350 [ClearLax] 17 gram/dose Powder 1 dose PO PRNRF: 0 [id number]-vit K-lycop [Men's 50 Plus Multivitamin] 400-20-370 mcg Tablet 1 tab PO DAILY RF: 0 Discontinued ciprofloxacin HCl [Cipro] 250 mg Tablet 500 mg PO BID RF: 0 metronidazole [Flagyl] 500 mg Tablet 500 mg PO TID RF: 0 Discharge Instructions Referrals: Sy Gibbons DO [ [facility] STAFF PHYSICIAN] - (Patient needs to follow-up with Dr. Gibbons on 06/02/18. Patient to call in am for appointment.) Activity:: Activity as Tolerated Equipment/Supplies:: No Equipment Needed Diet:: Clear Liquids Discharge Orders Discharge Orders: Discharge Order (Routine); Ordered 06/01/18 Ordered By: Meagan Duenas Discharge Data Discharge Comment: Discharge after enema Exam Const General: cooperative, no acute distress and well developed Nutritional Appearance: well nourished [facility] Head: normocephalic and atraumatic Eyes Sclera: sclerae normal Resp Effort & Inspection: normal respiratory effort and able to speak in complete sentences Cardio Jugular venous pressure: no JVD Rate: regular rate GI Inspection: non-distended Palpation: not firm, no guarding and tender in the LLQ (minimal tenderness to palpation, much improved from prior exams) Auscultation: normal bowel sounds Skin General skin exam: no rashes or lesions noted and no jaundice DS: Data Vitals/I&O Vitals and I&O: Vital Signs Temperature 36.6 C 06/01/18 07:50 Temperature Source Tympanic 06/01/18 07:50 Pulse 75 06/01/18 07:50 Pulse Rhythm Regular 06/01/18 08:43 Respiratory Rate 16 06/01/18 07:50 Respiratory Effort Non-Labored 06/01/18 08:43 Respiratory Depth Normal 06/01/18 08:43 Respiratory Pattern Normal 06/01/18 08:43 Blood Pressure 123/71 06/01/18 07:50 Blood Pressure Position Sitting 05/29/18 15:05 Pulse Oximetry 96 06/01/18 07:50 Oxygen Delivery Method Room Air 06/01/18 07:50 Oxygen Flow Rate 0 06/01/18 07:50 Pain Level 4 06/01/18 07:50 Comment 05/31/18 07:24 Intake & Output 05/31/18 05/31/18 06/01/18 11:59 23:59 11:59 Intake Total 980 / 980 3378.667 / 3378.667 1873.333 / 1873.333 Output Total 2350 / 2350 425 / 425 1950 / 1950 Balance -1370 / -1370 2953.667 / 2953.667 -76.667 / -76.667 Intake: IV 2418.667 / 2418.667 673.333 / 673.333 Oral 960 / 960 960 / 960 1200 / 1200 Output: Urine 2350 / 2350 425 / 425 1950 / 1950 Other: Urine Color Yellow Yellow Yellow Urine Appearance Clear Clear Clear Urine Odor Normal Normal Comment x2 voids. voided in commode Stool Characteristics Liquid Brown Voiding Methods Toilet Toilet Urinal Labs on day of discharge: Labs from last 24 hours 06/01/18 06/01/18 06:05 06:05 WBC 5.17 RBC 4.96 Hgb 14.5 Hct 43.7 MCV 88.1 MCH 29.2 MCHC 33.2 RDW 14.5 H Plt Count 193 MPV 10.4 Immature Gran % 0.0 Neutrophils % 59.8 Lymphocytes % 29.0 Monocytes % 9.1 Eosinophils % 1.9 Basophils % 0.2 Absolute Neutrophils 3.09 Absolute Lymphocytes 1.50 Absolute Monocytes 0.47 Absolute Eosinophils 0.10 Absolute Basophils 0.01 Sodium 142 Potassium 4.2 Chloride 106 Carbon Dioxide 26.3 Anion Gap 9.7 BUN 5 L Creatinine 1.06 Estimated GFR/1.73 m2 >= 60.00 Glucose 111 H Calcium 8.7 PFSH Sleep apnea (Acute) Family History Father Diabetes Mother Depression H/O left knee surgery (Acute) Family History Father Diabetes Mother Depression Social History Smoking/Tobacco Use Status: Former Tobacco Use alcohol intake: current alcohol intake frequency: 0-2 drinks per day Alcohol type: beer substance use type: does not use Surgical History H/O left knee surgery (Acute) Social History Smoking/Tobacco Use Status: Former Tobacco Use alcohol intake: current alcohol intake frequency: 0-2 drinks per day Alcohol type: beer substance use type: does not use
[2018-06-01] MEDS: Normal Saline Flush 10 ML SYR IVP (12:00)
--- NOTE | 2018-06-01 12:22 | PDOC.CMDIS ---
LACE Index Scoring Tool - Questions: Length of Stay (in days): 3 Acuity (Admit via E.D.?): Yes E.D. Visits: 3 - Answers: Total Score: 9 Risk of Readmission: Low Risk Care Management Discharge Reason for Hospitalization: Sleep apnea. Surgical hx: knee surgery (left). Discharge Plan: Hector will discharge home with specific instructions for PO intake and close follow up plan (likely tomorrow) to schedule surgery with Dr. Gibbons per Dr. Duenas. He will transport via private vehicle with his . Patient/Family Education Needs: Review of discharge instructions and self care needs upon discharge; discuss Ask Me Three and outreach plan for intervention if needed.
[2018-06-02 10:22] LABS: CEA 0.7 ng/ml
== END 2018-06-01 12:29 | disposition home or self-care (01) | DRG 390 ==
LOC: ER 17:33 → MS 17:38
PROVIDERS: Admitting Provider Surgery; Emergency Provider Nurse Practitioner Family; PCP Nurse Practitioner; Visit Provider Surgery
PROC: 0DJD8ZZ Inspection of Lower Intestinal Tract, Via Natural or Artificial Opening Endoscopic (ICD-10-PCS; CPT 45330; principal; 2018-05-30 08:30)
DX: K56.699 Other intestinal obstruction unspecified as to partial versus complete obstruction (principal); K57.30 Diverticulosis of large intestine without perforation or abscess without bleeding
CPT/HCPCS: 45330; 36415; 80048; 80053; 83690; 96361; 96374; 96375; 99222; 99232; 99238; 99285; 82378; 83605; 83735; 85025; 93005; 93010; 99284; J1335; J1885

== ENCOUNTER 2018-06-03 09:49 | Outpatient (CLI) | payer MEDICAID, SELFPAY | END 2018-06-03 10:09 | PROVIDERS: PCP Nurse Practitioner; Visit Provider Surgery | DX: K56.609 Unspecified intestinal obstruction, unspecified as to partial versus complete obstruction (principal); Z01.818 Encounter for other preprocedural examination | CPT/HCPCS: 36415; 86850; 86900; 86901 ==

== ENCOUNTER 2018-06-04 05:54 | Inpatient (IN) | payer MEDICAID, SELFPAY ==
[2018-06-04] VITALS (22 sets, daily range): BP systolic 85–140; BP diastolic 49–88; PULSE 70–98; RESP 13–26; TEMP 36–37.2; O2SAT 93–99
[2018-06-04] MEDS: Acetaminophen 325 MG TAB 650 MG PO (06:20)
[2018-06-04] MEDS: Lactated Ringers 1,000 ML 30 ML IV ×3 (07:09→14:39)
[2018-06-04] MEDS: Bupivacaine 0.25% Pres-Free 30 ML VIAL ×3 (07:26→13:36)
[2018-06-04] MEDS: Endoscopic Tattoo 5 ML SYR IJ (08:17)
--- NOTE | 2018-06-04 10:39 | BOWEL_PTH ---
PATIENT: MARK DOW LOC: ICU U#:[id number] AGE/SX: 42/M ROOM: ICU.219 RE06/04/[address]: Sy Gibbons DO : 1975 BED: A DIS: 06/13/2018 SPEC #: [id number] RECD: 06/04/18 17:48 STATUS: SOUT REQ #: [id number] MELINDA: 06/04/18 10:[address]: Sy Gibbons DEPT: Surgical Specimen RECD BY: Odalys Hughes ENTERED: 06/04/18 17:48 SP TYPE: Bowel OTHR DR: Clarissa Sheridan Tissues: 1 - BOWEL RESECTION(OTHER) Procedures: GROSS AND MICRO LEVEL 5 Comments: [id number]
[2018-06-04] MEDS: HYDROmorphone 2 MG/ML VIAL IVP (16:05)
--- NOTE | 2018-06-04 17:31 | W.PM.OP ---
Date of service: 06/04/18 Time of Service: 08:00 Operative Note DATE OF PROCEDURE: 06/04/18 PRE-OP DIAGNOSIS: Colonic stricture POST-OP DIAGNOSIS: other (Sigmoid colon stricture secondary to diverticulitis) PROCEDURE: 1. Flexible sigmoidoscopy with ink tattooing 2. Laparoscopic hand-assisted sigmoid colectomy 3. 3. Laparoscopic takedown splenic flexure SURGEON: Sy Gibbons MATERIAL PLANNER: Pamela Cotto ANESTHESIA: GETA (Lance Etienne, NIGHT AUDITOR; ASA 2 Mallampati class II), regional (Bilateral erector spinae blocks with 1.3% Exparel) and local (0.25% Marcaine) ESTIMATED BLOOD LOSS: 300 PATHOLOGY: other (Sigmoid colon as two sections from descending colon to the peritoneal reflection) COMPLICATIONS: None Patient was transported to: PACU Patient's condition: stable Implants: 19 Barb[place] Jameson drain Indications: 42-year-old gentleman recently hospitalized for colonic obstruction. He has had multiple ER presentations for similar symptoms, and multiple CTs performed have showed a narrowing of the colon in the sigmoid region. He underwent endoscopy during this last hospitalization. Flexible sigmoidoscopy did show a stricture that was possible by the endoscope though it was a tight fit. He has had bouts of left lower quadrant pain in the past. Suspect that he developed a stricture secondary to diverticulitis. He is here in follow-up to discuss the resection of the stricture.Recommended laparoscopic hand-assisted sigmoid resection, with flexible sigmoidoscopy prior to the procedure for tattooing of stricture. I did discuss with him the possibility for need for temporary loop ileostomy, and the general risks of surgery including: Bleeding, infection, anastomotic leak, and injury to bowel. All his questions were answered to his satisfaction. Findings: On flexible sigmoidoscopy the stricture was identified at approximately between 40 and 45 cm. I was able to pass the scope through the stricture with difficulty. The stricture length appeared to be between 5 and 10 cm. In doing was performed at the distal end of the stricture for identification during the laparoscopic surgery. The tattooed region was identified in the distal sigmoid flexure once the abdomen had been insufflated. There was also a dense adhesion to the pelvic wall here which was subsequently dissected free. The left ureter was identified and kept out of the surgical field the colon was freed up from the peritoneal reflection all the way past the splenic flexure with takedown of the splenic flexure laparoscopically. The sigmoid colon was subsequently resected and anastomosis by end-to-end anastomosis. Procedure Description: The patient was brought to the operating room and positioned supine. He had had bilateral erector spinae blocks placed prior to presenting to the operating room. Sequential compressive devices were placed on bilateral lower extremities. He received 2 g cefotetan prior to surgery. His left arm was tucked and right arm extended 90 degrees; all bony prominences were padded. An endotracheal tube was placed and sedation was titrated for effect by the NIGHT AUDITOR. Once adequate sedation was reached a Donis catheter was inserted, as well as a nasogastric tube. The patient was placed in dorsolithotomy position to perform a flexible sigmoidoscopy and possible and in anastomosis of the colon. An appropriate timeout was taken reviewing the patient's: Identification, allergies, medications, procedure, positioning, instruments, and antibiotics. A flexible sigmoidoscopy was performed for tattooing the stricture. I advanced a NPTVic flexible colonoscope from the anus to the stricture under direct visualization. The stricture was located approximately at the 40-45 cm bin. I was able to pass the scope with some difficulty through the stricture which I estimated to be between 5 and 10 cm in length. I subsequently tattooed the distal portion of the stricture with Rozina ink; this would be the proximal into the anus. On removing the scope I irrigated the distal sigmoid and rectum thoroughly. The abdomen was then prepped with ChloraPrep and block draped in standard sterile manner for patient undergoing surgery in the dorsal lithotomy position which included leg drapes. I began by making a stab incision in the left upper quadrant in the midclavicular line. I then introduced a Veress needle into the abdomen, checking its placement by saline drop test. The abdomen was then insufflated to 18 mmHg without apparent incident. I then placed a 5 mm trocar in the right lower quadrant at the level of the anterior superior iliac spine and midclavicular line under direct visualization. The area under my entry site was inspected and there is no apparent injury. I then inspected the abdomen, the Veress needle was identified in the left upper quadrant there is no apparent injury visible below it. The patient positioning was changed to Trendelenburg with right side down to better expose the left colon and sigmoid. I placed a second 5 mm trocar just above the umbilicus under direct visualization a third trocar was placed at the level of the umbilicus in the midclavicular line on the right side. Then, a fourth trocar was placed opposite of the third on the left side at the level of the umbilicus in the midclavicular line. With these trochars in place I proceeded to free up the left side of the colon from the peritoneal reflection up to the splenic flexure. Identified the tattoo which I placed at the start of the procedure, it was about the midpoint of the sigmoid colon. This corresponded to an area just below an area of sigmoid colon adherent to the pelvic wall. I subsequently took down the adhesions to the sigmoid colon and the pelvic wall. I identified the left ureter and proceeded to keep this out of my surgical field. The white line of Toldt was divided from the rectosigmoid junction at the peritoneal reflection all the way up to the splenic flexure, and the splenic flexure was taken down laparoscopically also to allow more length for anastomosis. A short segment of the mesentery reflection on the medial portion of the left colon was also divided from the sacral promontory down to the peritoneal reflection. Once this dissection was performed I had mobilized the left colon I felt that I could manipulate the colon to the abdominal wall sufficiently to perform a [id number] functional end-to-end anastomosis after resecting the stricture. I made a transverse linear incision in the left lower quadrant starting just lateral of midline extending towards the anterior superior iliac spine. This was carried down to the anterior rectus fascia. I then divided the anterior rectus fascia transversely, and bluntly dissected the rectus muscles which the muscles exposing the posterior rectus fascia. The abdomen had been left insufflated and with subsequent transverse division of the posterior rectus fascia there was a hong of gas out of the abdomen. I subsequently ended up dividing the midportion of the rectus muscles and expanding my incision both on the anterior and posterior rectus fascia to allow placement of a hand port. Once the hand port was in place I was able to manipulate the the left colon into the surgical view. Identified my tattoo distally, and I could easily palpate the strictured segment. Unfortunately the strictured segment and indurated portion was easily 10 cm long. This would make it too difficult to perform a [id number] anastomosis and I elected to resect this and perform an end-to-end anastomosis of the colon at the peritoneal reflection. I did this by first using a GI stapler 80 mm millimeters long; I found nonindurated proximal portion of colon, and divided this using the TRACI stapler. I then repeated the stapling on the distal portion of sigmoid colon which was not indurated. With a stricture resected and I then reinsufflated the abdomen, and divided the remaining segment of sigmoid colon at the peritoneal reflection using an Endo TRACI stapler with a J curved purple load of maria a for thick tissue. I had to complete the staple staple line using a straight purple load. I then proceeded to place the anvil in the proximal colon. The proximal staple line was removed using Brambila sutures the anvil was placed in the colon lumen and a pursestring suture suture using 2-0 Prolene was placed around this and tied in place. The abdomen was then insufflated again dilators were then passed through the rectum up to the anastomosis until a 30 mm dilator could be easily passed. The [employer] end-to-front end java developer was then passed up to the anastomosis, and the anvil attachment was placed passed through the wall of the colon anterior to the staple line. The stapler was fired without complications, but on check of staple rings the proximal ring was incomplete which was confirmed by the leak test showed an air leak. I then desufflated the abdomen remove my hand port and exposed the anastomosis was which was located just below the abdominal incision. With careful probing I was able to identify an incomplete staple line on the lateral posterior portion of the anastomosis. This was subsequently closed in layers with a full-thickness closure using 2-0 Vicryl suture in running fashion; followed by Lemberted sutures of 3-0 silk over my first layer. There was some fecal contamination during this which was copiously irrigated after suturing the anastomosis closed. A leak test was again performed and there was no evidence of a leak. The anastomosis in good position there is no evidence of tension I then placed a 19 [place] Jameson drain into the pelvis through my left lateral 5 mm trocar port. A 12 mm port trocar was placed supraumbilically where a 5 mm trocar been prior in the fascia was closed at this incision with 0 Vicryl suture. The abdomen had been copiously irrigated, and a drain was in place. The remainder of my trochars were removed under direct visualization I closed the transverse incision in layers. The posterior rectus fascia was closed using 0 Vicryl suture in a running fashion. The anterior rectus fascia was closed using [id number] #1 Vicryl sutures. The skin was closed with maria a. The remainder of the trocar skin incisions were closed using 4-0 Vicryl suture in subcuticular fashion and skin affix was placed over these incisions. The left lower quadrant transverse incision was covered with a dry sterile dressing. All counts were reported as correct x2. The patient was extubated in the operating room then brought to the postanesthesia care unit in good condition.
--- NOTE | 2018-06-04 17:40 | ROE_ITS ---
Date of service: 06/04/18 Time of Service: 08:00 Operative Note DATE OF PROCEDURE: 06/04/18 PRE-OP DIAGNOSIS: Colonic stricture POST-OP DIAGNOSIS: other (Sigmoid colon stricture secondary to diverticulitis) PROCEDURE: 1. Flexible sigmoidoscopy with ink tattooing 2. Laparoscopic hand-assisted sigmoid colectomy 3. 3. Laparoscopic takedown splenic flexure SURGEON: Sy Gibbons PARALEGAL SPECIALIST: Pamela Cotto ANESTHESIA: GETA (Lance Etienen, BATTERY STARTER; ASA 2 Mallampati class II), regional ( Bilateral erector spinae blocks with 1.3% Exparel) and local (0.25% Marcaine) ESTIMATED BLOOD LOSS: 300 PATHOLOGY: other (Sigmoid colon as two sections from descending colon to the peritoneal reflection) COMPLICATIONS: None Patient was transported to: PACU Patient's condition: stable Implants: 19 [place] Jameson drain Indications: 42-year-old gentleman recently hospitalized for colonic obstruction. He has had multiple ER presentations for similar symptoms, and multiple CTs performed have showed a narrowing of the colon in the sigmoid region. He underwent endoscopy during this last hospitalization. Flexible sigmoidoscopy did show a stricture that was possible by the endoscope though it was a tight fit. He has had bouts of left lower quadrant pain in the past. Suspect that he developed a stricture secondary to diverticulitis. He is here in follow-up to discuss the resection of the stricture.Recommended laparoscopic hand-assisted sigmoid resection, with flexible sigmoidoscopy prior to the procedure for tattooing of stricture. I did discuss with him the possibility for need for temporary loop ileostomy, and the general risks of surgery including: Bleeding, infection, anastomotic leak, and injury to bowel. All his questions were answered to his satisfaction. Findings: On flexible sigmoidoscopy the stricture was identified at approximately between 40 and 45 cm. I was able to pass the scope through the stricture with difficulty. The stricture length appeared to be between 5 and 10 cm. In doing was performed at the distal end of the stricture for identification during the laparoscopic surgery. The tattooed region was identified in the distal sigmoid flexure once the abdomen had been insufflated. There was also a dense adhesion to the pelvic wall here which was subsequently dissected free. The left ureter was identified and kept out of the surgical field the colon was freed up from the peritoneal reflection all the way past the splenic flexure with takedown of the splenic flexure laparoscopically. The sigmoid colon was subsequently resected and anastomosis by end-to-end anastomosis. Procedure Description: The patient was brought to the operating room and positioned supine. He had had bilateral erector spinae blocks placed prior to presenting to the operating room. Sequential compressive devices were placed on bilateral lower extremities. He received 2 g cefotetan prior to surgery. His left arm was tucked and right arm extended 90 degrees; all bony prominences were padded. An endotracheal tube was placed and sedation was titrated for effect by the BATTERY STARTER. Once adequate sedation was reached a Donis catheter was inserted, as well as a nasogastric tube. The patient was placed in dorsolithotomy position to perform a flexible sigmoidoscopy and possible and in anastomosis of the colon. An appropriate timeout was taken reviewing the patient's: Identification, allergies , medications, procedure, positioning, instruments, and antibiotics. A flexible sigmoidoscopy was performed for tattooing the stricture. I advanced a CardiOxic flexible colonoscope from the anus to the stricture under direct visualization. The stricture was located approximately at the 40-45 cm bin. I was able to pass the scope with some difficulty through the stricture which I estimated to be between 5 and 10 cm in length. I subsequently tattooed the distal portion of the stricture with Rozina ink; this would be the proximal into the anus. On removing the scope I irrigated the distal sigmoid and rectum thoroughly. The abdomen was then prepped with ChloraPrep and block draped in standard sterile manner for patient undergoing surgery in the dorsal lithotomy position which included leg drapes. I began by making a stab incision in the left upper quadrant in the midclavicular line. I then introduced a Veress needle into the abdomen, checking its placement by saline drop test. The abdomen was then insufflated to 18 mmHg without apparent incident. I then placed a 5 mm trocar in the right lower quadrant at the level of the anterior superior iliac spine and midclavicular line under direct visualization. The area under my entry site was inspected and there is no apparent injury. I then inspected the abdomen, the Veress needle was identified in the left upper quadrant there is no apparent injury visible below it. The patient positioning was changed to Trendelenburg with right side down to better expose the left colon and sigmoid. I placed a second 5 mm trocar just above the umbilicus under direct visualization a third trocar was placed at the level of the umbilicus in the midclavicular line on the right side. Then, a fourth trocar was placed opposite of the third on the left side at the level of the umbilicus in the midclavicular line. With these trochars in place I proceeded to free up the left side of the colon from the peritoneal reflection up to the splenic flexure. Identified the tattoo which I placed at the start of the procedure, it was about the midpoint of the sigmoid colon. This corresponded to an area just below an area of sigmoid colon adherent to the pelvic wall. I subsequently took down the adhesions to the sigmoid colon and the pelvic wall. I identified the left ureter and proceeded to keep this out of my surgical field. The white line of Toldt was divided from the rectosigmoid junction at the peritoneal reflection all the way up to the splenic flexure, and the splenic flexure was taken down laparoscopically also to allow more length for anastomosis. A short segment of the mesentery reflection on the medial portion of the left colon was also divided from the sacral promontory down to the peritoneal reflection. Once this dissection was performed I had mobilized the left colon I felt that I could manipulate the colon to the abdominal wall sufficiently to perform a side- to-side functional end-to-end anastomosis after resecting the stricture. I made a transverse linear incision in the left lower quadrant starting just lateral of midline extending towards the anterior superior iliac spine. This was carried down to the anterior rectus fascia. I then divided the anterior rectus fascia transversely, and bluntly dissected the rectus muscles which the muscles exposing the posterior rectus fascia. The abdomen had been left insufflated and with subsequent transverse division of the posterior rectus fascia there was a hong of gas out of the abdomen. I subsequently ended up dividing the midportion of the rectus muscles and expanding my incision both on the anterior and posterior rectus fascia to allow placement of a hand port. Once the hand port was in place I was able to manipulate the the left colon into the surgical view. Identified my tattoo distally, and I could easily palpate the strictured segment. Unfortunately the strictured segment and indurated portion was easily 10 cm long. This would make it too difficult to perform a [id number]-[id number]-qwrt anastomosis and I elected to resect this and perform an end-to-end anastomosis of the colon at the peritoneal reflection. I did this by first using a GI stapler 80 mm millimeters long; I found nonindurated proximal portion of colon, and divided this using the TRACI stapler. I then repeated the stapling on the distal portion of sigmoid colon which was not indurated. With a stricture resected and I then reinsufflated the abdomen, and divided the remaining segment of sigmoid colon at the peritoneal reflection using an Endo TRACI stapler with a J curved purple load of maria a for thick tissue. I had to complete the staple staple line using a straight purple load. I then proceeded to place the anvil in the proximal colon. The proximal staple line was removed using Brambila sutures the anvil was placed in the colon lumen and a pursestring suture suture using 2-0 Prolene was placed around this and tied in place. The abdomen was then insufflated again dilators were then passed through the rectum up to the anastomosis until a 30 mm dilator could be easily passed. The [employer] end-to-buffet attendant was then passed up to the anastomosis , and the anvil attachment was placed passed through the wall of the colon anterior to the staple line. The stapler was fired without complications, but on check of staple rings the proximal ring was incomplete which was confirmed by the leak test showed an air leak. I then desufflated the abdomen remove my hand port and exposed the anastomosis was which was located just below the abdominal incision. With careful probing I was able to identify an incomplete staple line on the lateral posterior portion of the anastomosis. This was subsequently closed in layers with a full-thickness closure using 2-0 Vicryl suture in running fashion; followed by Lemberted sutures of 3-0 silk over my first layer. There was some fecal contamination during this which was copiously irrigated after suturing the anastomosis closed. A leak test was again performed and there was no evidence of a leak. The anastomosis in good position there is no evidence of tension I then placed a 19 [place] Jameson drain into the pelvis through my left lateral 5 mm trocar port. A 12 mm port trocar was placed supraumbilically where a 5 mm trocar been prior in the fascia was closed at this incision with 0 Vicryl suture. The abdomen had been copiously irrigated, and a drain was in place. The remainder of my trochars were removed under direct visualization I closed the transverse incision in layers. The posterior rectus fascia was closed using 0 Vicryl suture in a running fashion. The anterior rectus fascia was closed using [id number] #1 Vicryl sutures. The skin was closed with maria a. The remainder of the trocar skin incisions were closed using 4-0 Vicryl suture in subcuticular fashion and skin affix was placed over these incisions. The left lower quadrant transverse incision was covered with a dry sterile dressing. All counts were reported as correct x2. The patient was extubated in the operating room then brought to the postanesthesia care unit in good condition.
[2018-06-04] MEDS: POTASSIUM CHLORIDE/D5-0.45NACL 1,000 ML 125 MEQ IV (18:44)
[2018-06-04] MEDS: Ketorolac 30 MG/ML VIAL IVP (19:37)
[2018-06-04] MEDS: Enoxaparin 40 MG/0.4 ML SYR SC (19:38)
[2018-06-04] MEDS: Normal Saline Flush 10 ML SYR IV ×2 (19:44→21:48)
[2018-06-04] MEDS: HYDROmorphone 2 MG/ML VIAL 0.5 MG IVP (20:17)
--- NOTE | 2018-06-04 20:20 | NUR.NOTE ---
Nursing Note: Attempted to place patient on continuous capnography, but equipment would not function under CPAP mask. Patient placed on continuous oximetry at this time.
[2018-06-04] MEDS: ACETAMINOPHEN 1,000 MG/100 ML BTL 400 MG IVPB (21:50)
[2018-06-05] MEDS: HYDROmorphone 2 MG/ML VIAL 0.5 MG IVP ×2 (00:22→03:35)
[2018-06-05] MEDS: Normal Saline Flush 10 ML SYR IV ×3 (00:23→03:35)
[2018-06-05] MEDS: Ketorolac 30 MG/ML VIAL IVP ×4 (01:24→19:22)
[2018-06-05] MEDS: POTASSIUM CHLORIDE/D5-0.45NACL 1,000 ML 125 MEQ IV ×3 (02:19→18:24)
[2018-06-05 03:33] VITALS: BP 106/69; PULSE 78; RESP 18; TEMP 36.7; O2SAT 97
[2018-06-05] MEDS: ACETAMINOPHEN 1,000 MG/100 ML BTL 400 MG IVPB ×3 (06:15→21:30)
[2018-06-05 07:16] LABS: Abs Immature Grans 0.02 k/cumm (0.0-0.09); Absolute Lymphocyte Count 0.48 k/cumm (1.2-3.4); Absolute Monocyte Count 0.57 k/cumm (0.11-0.7); Absolute Neutrophil Count 7.75 k/cumm (1.2-6.7); HCT 39.8 % (40.0-50.0); HGB 13.2 g/dL (13.5-17.5); Immature Grans % 0.2; Lymphocytes % 5.4; Mean Corp. HGB Concentration 33.2 g/dL (32.0-36.0); Mean Corpuscular Hemoglobin 29.1 pg (27.0-33.0); Mean Corpuscular Volume 87.7 fL (80-95); Mean Platelet Volume 10.7 fL (8.0-11.0); Monocytes % 6.5; Neutrophils % 87.9; Platelet Count 187 x1000/uL (130-400); RBC 4.54 m/cumm (4.50-6.00); RBC Distribution Width 14.2 % (11.8-14.1); White Blood Cell Count 8.82 k/cumm (4.4-10.8)
[2018-06-05 07:18] LABS: Anion Gap 9.4 mmol/L (3-11); BUN 11 mg/dL (7-18); CO2 24.6 mmol/L (21.0-32.0); CREATININE 1.17 mg/dL (0.70-1.30); Calcium 8.7 mg/dL (8.5-10.1); Chloride 104 mmol/L (98-107); Glucose 155 mg/dL (70-100); Magnesium 2.1 mg/dL (1.8-2.4); Potassium 4.8 mmol/L (3.5-5.1); Sodium 138 mmol/L (136-145)
[2018-06-05 07:25] VITALS: O2SAT 95
--- NOTE | 2018-06-05 09:15 | PDOC.CMIN ---
- If Service Date Differs Date of service: 06/05/18 Time of Service: 09:15 Care Management Initial Assess REASON FOR HOSPITALIZATION:: Colon Stricture. PAST MEDICAL HISTORY/PAST SURGICAL HISTORY:: Diverticulitis, sleep apnea. Surgical hx: knee surgery (left). PREVIOUS FUNCTIONAL STATUS/SOCIAL/FAMILY SUPPORTS:: Gurpreet resides in [place] with his , Keli, and their four children, ages 22, 20, 17, and 3. He is a readmission to [facility], having been at the hospital for a bowel obstruction on 05/29. 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 He is independent with his ADLs and transportation. CURRENT FUNCTIONAL STATUS:: Gurpreet is lying in bed when CM visits this morning. He is engaged in conversation, makes good eye contact, and is very talkative. He reports that his abdominal pain has been a 5 or 6/10 but he is not having any nausea or vomiting. Gurpreet has a PROCESSING MGR with hydromorphone for pain management and is receiving IV fluids and antibiotics. Gurpreet's resection was laparoscopic and according to him took a lot longer than was expected. ADVANCE DIRECTIVES:: None on file at [facility]. Has patient been provided with information about the portal?: Yes Did the patient sign up for the portal?: No CODE STATUS:: Full Code INSURANCE COVERAGE / FINANCIAL ISSUES:: Medicaid. CURRENT HOME/COMMUNITY SERVICES/EQUIPMENT:: No current home or community services. PRIMARY CARE PHYSICIAN:: Clarissa Sheridan. POTENTIAL DISCHARGE NEEDS:: Follow up appointment with surgical services. PATIENT/FAMILY EDUCATION NEEDS:: Discharge education, any limitations, and follow up plan of care. Ask Me Three discussion. ANTICIPATED BARRIERS TO DISCHARGE:: No anticipated barriers to discharge. TRANSPORTATION:: To be determined. PLAN:: Gurpreet will discharge when medically ready per MD. Anticipate patient will discharge with no services and follow up with surgical services. CM will continue to offer support to patient and care team regarding discharge planning and dispostion.
--- NOTE | 2018-06-05 09:20 | INITIAL_ITS ---
- If Service Date Differs Date of service: 06/05/18 Time of Service: 09:15 Care Management Initial Assess REASON FOR HOSPITALIZATION:: Colon Stricture. PAST MEDICAL HISTORY/PAST SURGICAL HISTORY:: Diverticulitis, sleep apnea. Surgical hx: knee surgery (left). PREVIOUS FUNCTIONAL STATUS/SOCIAL/FAMILY SUPPORTS:: Gurpreet resides in [place] with his , Keli, and their four children, ages 22, 20, 17, and 3. He is a readmission to [facility], having been at the hospital for a bowel obstruction on 05/29. 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 He is independent with his ADLs and transportation. CURRENT FUNCTIONAL STATUS:: Gurpreet is lying in bed when CM visits this morning. He is engaged in conversation, makes good eye contact, and is very talkative. He reports that his abdominal pain has been a 5 or 6/10 but he is not having any nausea or vomiting. 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 Gurpreet's resection was laparoscopic and according to him took a lot longer than was expected. ADVANCE DIRECTIVES:: None on file at [facility]. Has patient been provided with information about the portal?: Yes Did the patient sign up for the portal?: No CODE STATUS:: Full Code INSURANCE COVERAGE / FINANCIAL ISSUES:: Medicaid. CURRENT HOME/COMMUNITY SERVICES/EQUIPMENT:: No current home or community services. PRIMARY CARE PHYSICIAN:: Clarissa Sheridan. POTENTIAL DISCHARGE NEEDS:: Follow up appointment with surgical services. PATIENT/FAMILY EDUCATION NEEDS:: Discharge education, any limitations, and follow up plan of care. Ask Me Three discussion. ANTICIPATED BARRIERS TO DISCHARGE:: No anticipated barriers to discharge. TRANSPORTATION:: To be determined. PLAN:: Gurpreet will discharge when medically ready per MD. Anticipate patient will discharge with no services and follow up with surgical services. CM will continue to offer support to patient and care team regarding discharge planning and dispostion.
[2018-06-05 09:24] VITALS: BP 126/78; PULSE 86; RESP 14; TEMP 36.7; O2SAT 96
--- NOTE | 2018-06-05 09:38 | PGE_ITS ---
Documented by User: MIGUEL Cast 06/05/18 09:55 Date of Service Date of service: 06/05/18 Time of Service: 09:34 Assessment and Plan (1) Colonic obstruction: Current visit: Yes Status: Acute 42 y/o male, POD #1 s/p Laproscopic hand-assisted sigmoid colectomy and take down of splenic flexure. He denies constitutional symptoms. ACTIVITY- Encouraged him to ambulate today and to sit up in the chair. DIET- Will start clear liquids today. FLUIDS- Continue Potassium/D5/Half normal saline @ 125 mls/hr PAIN- Scheduled Dilaudid was increased to 20mg, he also has Dilaudid PRN doses as well as scheduled Toradol and Tylenol. RESPIRATORY- Use incentive spirometer Q1hr to promote deep breathing. Also discussed the importance of activities out of bed. DVT Prophylaxis- On Lovenox. Subjective Interval history since last seen: The patient reports that he did not sleep well last night due to waking up with sharp gas pains throughout the night. He states his pain level has been a steady 5-6/10PL despite the scheduled and PRN Dilaudid. He states that he has not passed any gas at this time. Exam Const General: cooperative and in distress mild Orientation: alert and oriented x3 Resp Effort & Inspection: normal respiratory effort Auscultation: clear to auscultation bilaterally Cardio Jugular venous pressure: no JVD Rate: regular rate Rhythm: regular rhythm Heart Sounds: S1 normal, S2 normal and no murmurs GI Palpation: soft and tender in the LLQ; with no rebound tenderness Auscultation: normal bowel sounds Objective Objective Clinical Data: Abnormal lab results 06/05/18 06/05/18 Range/Units 06:45 06:45 Hgb 13.2 L (13.5-17.5) g/dL Hct 39.8 L (40.0-50.0) % RDW 14.2 H (11.8-14.1) % Absolute Neutrophils 7.75 H (1.2-6.7) k/cumm Absolute Lymphocytes 0.48 L (1.2-3.4) k/cumm Glucose 155 H (70-100) mg/dL Vital Signs Temperature 36.7 C 06/05/18 03:33 Temperature Source Tympanic 06/05/18 03:33 Pulse 78 06/05/18 03:33 Pulse Rhythm Regular 06/04/18 22:41 Respiratory Rate 18 06/05/18 03:33 Respiratory Effort Non-Labored 06/04/18 22:41 Respiratory Depth Normal 06/04/18 22:41 Respiratory Pattern Normal 06/04/18 22:41 Blood Pressure 106/69 06/05/18 03:33 Pulse Oximetry 97 06/05/18 03:33 Respiratory End-tidal CO2 29 06/04/18 17:00 Oxygen Delivery Method Cpap 06/05/18 03:33 Oxygen Flow Rate 0 06/04/18 23:46 Pain Level 5 06/05/18 09:12 Comment 06/04/18 18:54 Intake & Output 06/04/18 06/04/18 06/05/18 11:59 23:59 11:59 Intake Total 1100 / 3000 1900 / 3000 1908.334 / 1908.334 Output Total 1140 / 1140 320 / 320 Balance 1100 / 1860 760 / 1860 1588.334 / 1588.334 Weight 107.4 kg Intake: IV 1100 / 3000 1900 / 3000 1908.334 / 1908.334 Output: Drainage 140 / 140 20 / 20 Left Abdomen 140 / 140 20 / 20 Urine 500 / 500 300 / 300 Estimated Blood Loss 500 / 500 Other: Urine Color Yellow Light Hortensia Light Hortensia Urine Appearance Clear Clear Clear Emesis Description None Laboratory Results WBC 8.82 k/cumm (4.4-10.8) 06/05/18 06:45 RBC 4.54 m/cumm (4.50-6.00) 06/05/18 06:45 Hgb 13.2 g/dL (13.5-17.5) L 06/05/18 06:45 Hct 39.8 % (40.0-50.0) L 06/05/18 06:45 MCV 87.7 fL (80-95) 06/05/18 06:45 MCH 29.1 pg (27.0-33.0) 06/05/18 06:45 MCHC 33.2 g/dL (32.0-36.0) 06/05/18 06:45 RDW 14.2 % (11.8-14.1) H 06/05/18 06:45 Plt Count 187 x1000/uL (130-400) 06/05/18 06:45 MPV 10.7 fL (8.0-11.0) 06/05/18 06:45 Immature Gran % 0.2 06/05/18 06:45 Neutrophils % 87.9 06/05/18 06:45 Lymphocytes % 5.4 06/05/18 06:45 Monocytes % 6.5 06/05/18 06:45 Eosinophils % 0.0 06/05/18 06:45 Basophils % 0.0 06/05/18 06:45 Absolute Neutrophils 7.75 k/cumm (1.2-6.7) H 06/05/18 06:45 Absolute Lymphocytes 0.48 k/cumm (1.2-3.4) L 06/05/18 06:45 Absolute Monocytes 0.57 k/cumm (0.11-0.7) 06/05/18 06:45 Absolute Eosinophils 0.00 k/cumm (0.0-0.7) 06/05/18 06:45 Absolute Basophils 0.00 k/cumm (0.0-0.2) 06/05/18 06:45 Sodium 138 mmol/L (136-145) 06/05/18 06:45 Potassium 4.8 mmol/L (3.5-5.1) 06/05/18 06:45 Chloride 104 mmol/L (98-107) 06/05/18 06:45 Carbon Dioxide 24.6 mmol/L (21.0-32.0) 06/05/18 06:45 Anion Gap 9.4 mmol/L (3-11) 06/05/18 06:45 BUN 11 mg/dL (7-18) 06/05/18 06:45 Creatinine 1.17 mg/dL (0.70-1.30) 06/05/18 06:45 Estimated GFR/1.73 m2 >= 60.00 (mL/min/1.73m2) 06/05/18 06:45 Glucose 155 mg/dL (70-100) H 06/05/18 06:45 Calcium 8.7 mg/dL (8.5-10.1) 06/05/18 06:45 Magnesium 2.1 mg/dL (1.8-2.4) 06/05/18 06:45 Documented by User: Sy Gibbnos DO 06/05/18 13:14 Assessment and Plan (1) Colonic obstruction: Current visit: Yes Status: Acute Reviewed patient chart and examined patient. 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 Agree with Razia fuller plans as stated.
--- NOTE | 2018-06-05 11:09 | PHARADMIT ---
Addendum entered by Mike Pelayo III 06/12/18 14:33: Pharmacy Note Subjective MD concerned there may be an abscess brewing. Changed IV ABX may consider transfer for Interventional Radiology scan. ([facility] [place] ?) Objective VS-OK Mag-2.0 WBC-17.72 H&H,Plts-OK Assessment Reduce additional MagSO4 to 1gm in TPN MD has DC'd Ertepenem,changed to Cipro/Flagyl IV Plan Watch for abdominal drainage and possible transfer if needed. Original Note: Addendum entered by Mike Pelayo III 06/11/18 17:27: Pharmacy Note Subjective continue current regimen Objective VS-OK K+3.8 Mag-1.7 WBC-17.71 H&H-up Assessment TPN , add MagSO4 5gm to bag #1 continues epidural continues (12 mL/HR w 5mL boluses ertapenem (day#5) continues Plan awaiting Original Note: Addendum entered by Kelsie Badillo 06/10/18 15:28: Pharmacy Note Subjective patient is working with PT on strengthening and mobility Objective VS-okay WBC-13.46(up) h/h-9.7/29.4(down) AST-68(up) FSBG-137 weight-116.2(up) Assessment TPN continues epidural continues (12 mL/HR ertapenem (day#4) continues Plan continue to watch VS, labs and for med changes Original Note: Addendum entered by Kelsie Badillo 06/09/18 09:19: Pharmacy Note Subjective went back to OR yesterday but is doing better than last night per progress note Objective HR-101 RR-25 Tmax-37.7 weight-112.3(up) Assessment 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 pt had central line put in this morning Plan continue to watch VS, labs and for med changes Original Note: Addendum entered by Kelsie Badillo 06/08/18 13:35: Pharmacy Note Subjective drain with feculant drainage consistent w/anastomotic leak per progress notes Objective BP-108/56 HR-115 other VS okay Assessment hydromorphone SILK SCREEN PAINTER continues (no BM meds ordered) ertapenem continues (day #2) mention of possible TPN to start tomorrow as has only had clears for about 10 days Plan continue to watch VS, labs and for med changes Original Note: Addendum entered by Kelsie Badillo 06/07/18 14:20: Pharmacy Note Subjective awaiting return of GI function per progress note Objective HR-94 other VS okay labs-within normal limits Assessment no med changes IV rate increased to 150 mL/hr Plan continue to watch VS, labs and for med changes Original Note: Addendum entered by Haven Falk 06/06/18 14:53: Pharmacy Note Subjective awaiting return of GI function post op Objective vs ok, pain 6/ Assessment cefotetan stopped home meds not started;Tylenol Arthrithis, Erythromycin,Neomycin, M-vites, Advil, Miralax . hydromorphone SILK SCREEN PAINTER for pain mgt Plan backing off on diet. back to clears due to gas pains and no flatus Original Note: Admission Pharmacy Clinical Review colon stricture Code Status Full Code Current Weight Wgt- 107.4 kg Renally Cleared and Narrow Therapeutic Index Meds CrCl~ 83 mL/min Meds-OK QTc Value / Action Taken QTc-393 na BP Control, Fever BP-106/69 Tmax- 36.9C Electrolytes reviewed Na-138 K+4.8 Mag- 2.1 DVT Prophylaxis Lovenox Opiate Usage / Scheduled Bowel Regimen Ordered Yes No (NPO) Plt/SCr for Heparin / Enoxaparin Plts-!87 SCr-1.14 INR for Warfarin na H/H stable, WBC/Bands H&H- 13.2/39.8 WBC- 8.82 Antibiotic appropriateness Cefotetan Cultures and Sensitivities none Surgical ABX d/c within 24 hr na DM control / Insulin Dosing BG- 155 Heart Failure (Check EF%) (INGRID's, B-Block, Diuretics) none IV to PO Switch No Home Meds Reviewed Yes Home Meds Not Ordered TylenolArthritis, Erytromycin,Neomycin, M-vites, Advil, Miralax Comments
[2018-06-05] MEDS: Normal Saline Flush 10 ML SYR IVP ×3 (12:00→19:22)
[2018-06-05 12:25] VITALS: BP 109/71; PULSE 73; RESP 16; TEMP 36.5; O2SAT 95
[2018-06-05 16:39] VITALS: BP 114/69; PULSE 85; RESP 18; TEMP 37.1; O2SAT 93
[2018-06-05] MEDS: Enoxaparin 40 MG/0.4 ML SYR SC (19:22)
[2018-06-05 19:40] VITALS: BP 130/74; PULSE 86; RESP 19; TEMP 36.6; O2SAT 98
[2018-06-06 00:08] VITALS: BP 102/70; PULSE 85; RESP 18; TEMP 37.1; O2SAT 94
[2018-06-06] MEDS: Normal Saline Flush 10 ML SYR IVP ×6 (01:18→22:10)
[2018-06-06] MEDS: Ketorolac 30 MG/ML VIAL IVP ×4 (01:18→20:21)
[2018-06-06] MEDS: POTASSIUM CHLORIDE/D5-0.45NACL 1,000 ML 125 MEQ IV ×2 (01:20→09:53)
[2018-06-06 04:31] VITALS: BP 113/75; PULSE 85; RESP 18; TEMP 37.1; O2SAT 95
[2018-06-06] MEDS: ACETAMINOPHEN 1,000 MG/100 ML BTL 400 MG IVPB ×3 (05:40→22:09)
[2018-06-06 07:27] LABS: Anion Gap 7.3 mmol/L (3-11); BUN 14 mg/dL (7-18); CO2 25.7 mmol/L (21.0-32.0); CREATININE 1.24 mg/dL (0.70-1.30); Calcium 8.4 mg/dL (8.5-10.1); Chloride 102 mmol/L (98-107); Glucose 123 mg/dL (70-100); Potassium 5.2 mmol/L (3.5-5.1); Sodium 135 mmol/L (136-145)
[2018-06-06 07:30] VITALS: BP 98/67; PULSE 97; RESP 17; TEMP 36.6; O2SAT 94
--- NOTE | 2018-06-06 08:01 | W.PM.PROGNOT ---
Date of Service Date of service: 06/06/18 Time of Service: 08:01 Assessment and Plan (1) Colonic obstruction: Current visit: Yes Status: Acute 42 y/o male, POD #2 s/p Laproscopic hand-assisted sigmoid colectomy and take down of splenic flexure. He denies constitutional symptoms. ACTIVITY- Encouraged him to ambulate today and to sit up in the chair. DIET- Will start clear liquids today. FLUIDS- Continue Potassium/D5/Half normal saline @ 125 mls/hr PAIN- Currently well managed with scheduled Dilaudid, Toradol and Tylenol. RESPIRATORY- Use incentive spirometer Q1hr to promote deep breathing. Also discussed the importance of activities out of bed. DVT Prophylaxis- On Lovenox. Subjective Interval history since last seen: The patient reports that his pain has been well managed since the increase in his dilaudid yesterday. He reports that his discomfort is a steady 5/10PL and that he is no longer getting cramps of pain. He reports that he ambulated in the room and sat up in a chair for some time yesterday. He has not had any flatus. He denies nausea, vomiting, fevers or chills. Exam Const General: cooperative and comfortable Orientation: alert and oriented x3 Resp Effort & Inspection: normal respiratory effort Auscultation: clear to auscultation bilaterally and no wheezes Cardio Rate: regular rate Rhythm: regular rhythm Heart Sounds: S1 normal, S2 normal and no murmurs GI Inspection: non-distended and incision (with dressing in place) Palpation: soft, no guarding and tender with no rebound tenderness Auscultation: hypoactive bowel sounds Objective Objective Clinical Data: Abnormal lab results 06/06/18 Range/Units 06:25 Sodium 135 L (136-145) mmol/L Potassium 5.2 H (3.5-5.1) mmol/L Glucose 123 H (70-100) mg/dL Calcium 8.4 L (8.5-10.1) mg/dL Vital Signs Temperature 37.1 C 06/06/18 04:31 Temperature Source Tympanic 06/06/18 04:31 Pulse 85 06/06/18 04:31 Pulse Rhythm Regular 06/05/18 21:07 Respiratory Rate 18 06/06/18 04:31 Respiratory Effort Non-Labored 06/05/18 21:07 Respiratory Depth Normal 06/05/18 21:07 Respiratory Pattern Normal 06/05/18 21:07 Blood Pressure 113/75 06/06/18 04:31 Pulse Oximetry 95 06/06/18 04:31 Respiratory End-tidal CO2 29 06/04/18 17:00 Oxygen Delivery Method Room Air 06/06/18 04:31 Oxygen Flow Rate 0 06/06/18 04:31 Pain Level 5 06/06/18 07:38 Comment 06/05/18 12:25 Intake & Output 06/05/18 06/05/18 06/06/18 11:59 23:59 11:59 Intake Total 2128.334 / 3428.334 1300 / 3428.334 1262.667 / 1262.667 Output Total 380 / 1620 1240 / 1620 160 / 160 Balance 1748.334 / 1808.334 60 / 5847.117 4009.667 / 1102.667 Intake: IV 2038.334 / 3338.334 1300 / 3338.334 966.667 / 966.667 Oral 90 / 90 296 / 296 Output: Drainage 80 / 220 140 / 220 10 / 10 Left Abdomen 80 / 220 140 / 220 10 / 10 Urine 300 / 1400 1100 / 1400 150 / 150 Other: Urine Color Light Hortensia Dark Hortensia Dark Hortensia Urine Appearance Clear Clear Clear Comment Dr. Gibbons notified. Laboratory Results WBC 8.82 k/cumm (4.4-10.8) 06/05/18 06:45 RBC 4.54 m/cumm (4.50-6.00) 06/05/18 06:45 Hgb 13.2 g/dL (13.5-17.5) L 06/05/18 06:45 Hct 39.8 % (40.0-50.0) L 06/05/18 06:45 MCV 87.7 fL (80-95) 06/05/18 06:45 MCH 29.1 pg (27.0-33.0) 06/05/18 06:45 MCHC 33.2 g/dL (32.0-36.0) 06/05/18 06:45 RDW 14.2 % (11.8-14.1) H 06/05/18 06:45 Plt Count 187 x1000/uL (130-400) 06/05/18 06:45 MPV 10.7 fL (8.0-11.0) 06/05/18 06:45 Immature Gran % 0.2 06/05/18 06:45 Neutrophils % 87.9 06/05/18 06:45 Lymphocytes % 5.4 06/05/18 06:45 Monocytes % 6.5 06/05/18 06:45 Eosinophils % 0.0 06/05/18 06:45 Basophils % 0.0 06/05/18 06:45 Absolute Neutrophils 7.75 k/cumm (1.2-6.7) H 06/05/18 06:45 Absolute Lymphocytes 0.48 k/cumm (1.2-3.4) L 06/05/18 06:45 Absolute Monocytes 0.57 k/cumm (0.11-0.7) 06/05/18 06:45 Absolute Eosinophils 0.00 k/cumm (0.0-0.7) 06/05/18 06:45 Absolute Basophils 0.00 k/cumm (0.0-0.2) 06/05/18 06:45 Sodium 135 mmol/L (136-145) L 06/06/18 06:25 Potassium 5.2 mmol/L (3.5-5.1) H 06/06/18 06:25 Chloride 102 mmol/L (98-107) 06/06/18 06:25 Carbon Dioxide 25.7 mmol/L (21.0-32.0) 06/06/18 06:25 Anion Gap 7.3 mmol/L (3-11) 06/06/18 06:25 BUN 14 mg/dL (7-18) 06/06/18 06:25 Creatinine 1.24 mg/dL (0.70-1.30) 06/06/18 06:25 Estimated GFR/1.73 m2 >= 60.00 (mL/min/1.73m2) 06/06/18 06:25 Glucose 123 mg/dL (70-100) H 06/06/18 06:25 Calcium 8.4 mg/dL (8.5-10.1) L 06/06/18 06:25 Magnesium 2.1 mg/dL (1.8-2.4) 06/05/18 06:45
[2018-06-06] MEDS: Normal Saline 1,000 ML 125 ML IV ×2 (10:53→20:22)
--- NOTE | 2018-06-06 11:19 | PDOC.CMPRO ---
- If Service Date Differs Date of service: 06/06/18 Time of Service: 11:19 Care Management Progress Note S/O: Hector is sitting in his chair when visits this morning. He is engaged in conversation, makes good eye contact, and is talkative. He is s/p Day #1. Hector reports that his pain is constant at a 5/10. He is not passing flatus but has no N/V today. Hector has been ambulating in the halls and tolerating clear liquids. 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 A: 42 year old male admitted with a colon stricture
--- NOTE | 2018-06-06 11:24 | CMPROGNOTE_ITS ---
- If Service Date Differs Date of service: 06/06/18 Time of Service: 11:19 Care Management Progress Note S/O: Hector is sitting in his chair when visits this morning. He is engaged in conversation, makes good eye contact, and is talkative. He is s/p Day #1. Hector reports that his pain is constant at a 5/10. He is not passing flatus but has no N/V today. Hector has been ambulating in the halls and tolerating clear liquids. 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 A: 42 year old male admitted with a colon stricture
[2018-06-06 11:50] VITALS: BP 105/70; PULSE 94; RESP 17; TEMP 36.4; O2SAT 96
[2018-06-06 12:53] VITALS: BP 112/72; PULSE 96; RESP 18; TEMP 37.6; O2SAT 97
--- NOTE | 2018-06-06 13:45 | PGE_ITS ---
Date of Service Date of service: 06/06/18 Time of Service: 13:39 Assessment and Plan (1) S/P colon resection: Current visit: Yes Status: Acute POD # 2 s/p laparoscopic hand-assisted sigmoid colon resection with takedown of splenic flexure for sigmoid stricture. Awaiting return of GI function. Will hold off on clear liquids tonight given gas pains and no flatus. OK for ice chips. Fluids changed to NS for K+ - 5.2. Follow-up lytes in am. Subjective Interval history since last seen: Patient resting quietly. Notes that he is having abdominal pain attributable to gas pains. He denies passing any flatus since surgery. He denies nausea or vomiting. He has been taking clears. K+ - 5.2 this am. Fluids changed to NS. Exam Const General: cooperative, no acute distress and well developed Nutritional Appearance: obese Orientation: alert Eyes Sclera: sclerae normal Resp Effort & Inspection: normal respiratory effort and able to speak in complete sentences Cardio Jugular venous pressure: no JVD Rate: regular rate Rhythm: regular rhythm GI Inspection: non-distended, incision (laparoscopic sites intact with skin adh esive; LLQ transverse maria a intact) and other (Drain - LLQ - serosanguinous) Palpation: soft, not firm, no guarding, no masses, not rigid and tender (mildly tender by incisions) Auscultation: high-pitched sounds and normoactive bowel sounds Skin General skin exam: no rashes or lesions noted and no jaundice Neuro General: alert and oriented x3 Speech: speech normal Objective Objective Clinical Data: Abnormal lab results 06/06/18 Range/Units 06:25 Sodium 135 L (136-145) mmol/L Potassium 5.2 H (3.5-5.1) mmol/L Glucose 123 H (70-100) mg/dL Calcium 8.4 L (8.5-10.1) mg/dL Vital Signs Temperature 37.6 C H 06/06/18 12:53 Temperature Source Tympanic 06/06/18 12:53 Pulse 96 H 06/06/18 12:53 Pulse Rhythm Regular 06/05/18 21:07 Respiratory Rate 18 06/06/18 12:53 Respiratory Effort Non-Labored 06/05/18 21:07 Respiratory Depth Normal 06/05/18 21:07 Respiratory Pattern Normal 06/05/18 21:07 Blood Pressure 112/72 06/06/18 12:53 Pulse Oximetry 97 06/06/18 12:53 Respiratory End-tidal CO2 29 06/04/18 17:00 Oxygen Delivery Method Room Air 06/06/18 12:53 Oxygen Flow Rate 0 06/06/18 12:53 Pain Level 5 06/06/18 13:16 Comment 06/05/18 12:25 Intake & Output 06/05/18 06/06/18 06/06/18 23:59 11:59 23:59 Intake Total 1300 / 3428.334 2777.667 / 3017.667 240 / 3017.667 Output Total 1240 / 1620 485 / 485 Balance 60 / 5537.171 4597.667 / 2532.667 240 / 2532.667 Intake: IV 1300 / 3338.334 2141.667 / 2141.667 Oral 636 / 876 240 / 876 Output: Drainage 140 / 220 35 / 35 Left Abdomen 140 / 220 35 / 35 Urine 1100 / 1400 450 / 450 Other: Urine Color Dark Hortensia Dark Hortensia Urine Appearance Clear Clear Comment Dr. Gibbons notified. Laboratory Results WBC 8.82 k/cumm (4.4-10.8) 06/05/18 06:45 RBC 4.54 m/cumm (4.50-6.00) 06/05/18 06:45 Hgb 13.2 g/dL (13.5-17.5) L 06/05/18 06:45 Hct 39.8 % (40.0-50.0) L 06/05/18 06:45 MCV 87.7 fL (80-95) 06/05/18 06:45 MCH 29.1 pg (27.0-33.0) 06/05/18 06:45 MCHC 33.2 g/dL (32.0-36.0) 06/05/18 06:45 RDW 14.2 % (11.8-14.1) H 06/05/18 06:45 Plt Count 187 x1000/uL (130-400) 06/05/18 06:45 MPV 10.7 fL (8.0-11.0) 06/05/18 06:45 Immature Gran % 0.2 06/05/18 06:45 Neutrophils % 87.9 06/05/18 06:45 Lymphocytes % 5.4 06/05/18 06:45 Monocytes % 6.5 06/05/18 06:45 Eosinophils % 0.0 06/05/18 06:45 Basophils % 0.0 06/05/18 06:45 Absolute Neutrophils 7.75 k/cumm (1.2-6.7) H 06/05/18 06:45 Absolute Lymphocytes 0.48 k/cumm (1.2-3.4) L 06/05/18 06:45 Absolute Monocytes 0.57 k/cumm (0.11-0.7) 06/05/18 06:45 Absolute Eosinophils 0.00 k/cumm (0.0-0.7) 06/05/18 06:45 Absolute Basophils 0.00 k/cumm (0.0-0.2) 06/05/18 06:45 Sodium 135 mmol/L (136-145) L 06/06/18 06:25 Potassium 5.2 mmol/L (3.5-5.1) H 06/06/18 06:25 Chloride 102 mmol/L (98-107) 06/06/18 06:25 Carbon Dioxide 25.7 mmol/L (21.0-32.0) 06/06/18 06:25 Anion Gap 7.3 mmol/L (3-11) 06/06/18 06:25 BUN 14 mg/dL (7-18) 06/06/18 06:25 Creatinine 1.24 mg/dL (0.70-1.30) 06/06/18 06:25 Estimated GFR/1.73 m2 >= 60.00 (mL/min/1.73m2) 06/06/18 06:25 Glucose 123 mg/dL (70-100) H 06/06/18 06:25 Calcium 8.4 mg/dL (8.5-10.1) L 06/06/18 06:25 Magnesium 2.1 mg/dL (1.8-2.4) 06/05/18 06:45
[2018-06-06 16:30] VITALS: BP 123/68; PULSE 85; RESP 19; TEMP 37.3; O2SAT 93
[2018-06-06] MEDS: Enoxaparin 40 MG/0.4 ML SYR SC (20:21)
[2018-06-07 00:10] VITALS: BP 92/59; PULSE 100; RESP 17; TEMP 36.9; O2SAT 90
--- NOTE | 2018-06-07 00:14 | NUR.NOTE ---
Nursing Note:Pt called me in room to report that he had finally passed a small amount of gas! He said it woke him from his sleep.
[2018-06-07] MEDS: Ketorolac 30 MG/ML VIAL IVP ×4 (01:40→20:04)
[2018-06-07] MEDS: Normal Saline Flush 10 ML SYR IVP ×4 (01:41→20:03)
[2018-06-07 03:59] VITALS: BP 100/64; PULSE 94; RESP 18; TEMP 36.9; O2SAT 93
[2018-06-07] MEDS: Normal Saline 1,000 ML 125 ML IV (04:00)
[2018-06-07] MEDS: ACETAMINOPHEN 1,000 MG/100 ML BTL 400 MG IVPB ×2 (06:24→17:33)
[2018-06-07 07:12] LABS: Anion Gap 6.4 mmol/L (3-11); BUN 17 mg/dL (7-18); CO2 28.6 mmol/L (21.0-32.0); Calcium 8.5 mg/dL (8.5-10.1); Chloride 103 mmol/L (98-107); Glucose 99 mg/dL (70-100); Potassium 4.9 mmol/L (3.5-5.1); Sodium 138 mmol/L (136-145)
[2018-06-07 08:30] VITALS: BP 116/70; PULSE 102; RESP 18; TEMP 36.8; O2SAT 92
--- NOTE | 2018-06-07 11:27 | PGE_ITS ---
Date of Service Date of service: 06/07/18 Time of Service: 11:25 Assessment and Plan (1) S/P colon resection: Current visit: Yes Status: Acute POD # 3 s/p laparoscopic hand-assisted sigmoid colon resection with takedown of splenic flexure for sigmoid stricture. Awaiting return of GI function. NPO except ice chips until increased flatus and decreased abdominal tightness. Encouraged OOB and ambulation as tolerated. Creatinine improved but urine still appears concentrated. Only 660 cc documented x 24 hours. Will increase IVF to 150/hr. Monitor I/Os. Follow-up lytes/CBC in am. Subjective Interval history since last seen: Patient notes abdomen is sore. (+) small amount of flatus last night but abdomen still feels tight. Denies nausea or vomiting. Ambulated this am. Transferred to bed on his own. Labs noted. Creatinine improved. UO - 650/24 hours recorded for 06/06/18. Exam Const General: cooperative, no acute distress and well developed Nutritional Appearance: well nourished Orientation: alert and oriented x3 Eyes Sclera: sclerae normal Resp Effort & Inspection: normal respiratory effort and able to speak in complete sentences GI Inspection: non-distended, incision (dry/clean/intact) and other (drain - blood- tinged, slightly cloudy) Palpation: soft, not firm, no guarding, no masses and tender (mild by incisions) Auscultation: hypoactive bowel sounds Neuro General: alert Speech: speech normal Objective Objective Clinical Data: Vital Signs Temperature 36.9 C 06/07/18 03:59 Temperature Source Tympanic 06/07/18 03:59 Pulse 94 H 06/07/18 03:59 Pulse Rhythm Regular 06/07/18 08:30 Respiratory Rate 18 06/07/18 03:59 Respiratory Effort Non-Labored 06/07/18 08:30 Respiratory Depth Normal 06/07/18 08:30 Respiratory Pattern Normal 06/07/18 08:30 Blood Pressure 100/64 06/07/18 03:59 Pulse Oximetry 93 L 06/07/18 03:59 Respiratory End-tidal CO2 29 06/04/18 17:00 Oxygen Delivery Method Room Air 06/07/18 03:59 Oxygen Flow Rate 0 06/07/18 03:59 Pain Level 5 06/07/18 09:52 Comment 06/05/18 12:25 Intake & Output 06/06/18 06/06/18 06/07/18 11:59 23:59 11:59 Intake Total 2777.667 / 4357.667 1580.000 / 4357.667 954.448 / 954.448 Output Total 485 / 705 220 / 705 385 / 385 Balance 2292.667 / 3652.667 1360.000 / 3652.667 569.448 / 569.448 Intake: IV 2141.667 / 3361.667 1220.000 / 3361.667 954.448 / 954.448 Oral 636 / 996 360 / 996 Output: Drainage 35 / 35 Left Abdomen 35 35 Urine 450 / 650 200 / 650 350 / 350 Other: Urine Color Dark Hortensia Dark Hortensia Light Hortensia Urine Appearance Clear Clear Sediment Comment pt independent with [facility] this am. Laboratory Results WBC 8.82 k/cumm (4.4-10.8) 06/05/18 06:45 RBC 4.54 m/cumm (4.50-6.00) 06/05/18 06:45 Hgb 13.2 g/dL (13.5-17.5) L 06/05/18 06:45 Hct 39.8 % (40.0-50.0) L 06/05/18 06:45 MCV 87.7 fL (80-95) 06/05/18 06:45 MCH 29.1 pg (27.0-33.0) 06/05/18 06:45 MCHC 33.2 g/dL (32.0-36.0) 06/05/18 06:45 RDW 14.2 % (11.8-14.1) H 06/05/18 06:45 Plt Count 187 x1000/uL (130-400) 06/05/18 06:45 MPV 10.7 fL (8.0-11.0) 06/05/18 06:45 Immature Gran % 0.2 06/05/18 06:45 Neutrophils % 87.9 06/05/18 06:45 Lymphocytes % 5.4 06/05/18 06:45 Monocytes % 6.5 06/05/18 06:45 Eosinophils % 0.0 06/05/18 06:45 Basophils % 0.0 06/05/18 06:45 Absolute Neutrophils 7.75 k/cumm (1.2-6.7) H 06/05/18 06:45 Absolute Lymphocytes 0.48 k/cumm (1.2-3.4) L 06/05/18 06:45 Absolute Monocytes 0.57 k/cumm (0.11-0.7) 06/05/18 06:45 Absolute Eosinophils 0.00 k/cumm (0.0-0.7) 06/05/18 06:45 Absolute Basophils 0.00 k/cumm (0.0-0.2) 06/05/18 06:45 Sodium 138 mmol/L (136-145) 06/07/18 06:08 Potassium 4.9 mmol/L (3.5-5.1) 06/07/18 06:08 Chloride 103 mmol/L (98-107) 06/07/18 06:08 Carbon Dioxide 28.6 mmol/L (21.0-32.0) 06/07/18 06:08 Anion Gap 6.4 mmol/L (3-11) 06/07/18 06:08 BUN 17 mg/dL (7-18) 06/07/18 06:08 Creatinine 1.00 mg/dL (0.70-1.30) 06/07/18 06:08 Estimated GFR/1.73 m2 >= 60.00 (mL/min/1.73m2) 06/07/18 06:08 Glucose 99 mg/dL (70-100) 06/07/18 06:08 Calcium 8.5 mg/dL (8.5-10.1) 06/07/18 06:08 Magnesium 2.1 mg/dL (1.8-2.4) 06/05/18 06:45
[2018-06-07 12:43] VITALS: BP 105/70; PULSE 94; RESP 18; TEMP 36.7; O2SAT 94
[2018-06-07] MEDS: Normal Saline 1,000 ML 150 ML IV ×2 (12:46→20:05)
[2018-06-07 15:49] VITALS: BP 110/67; PULSE 102; RESP 20; TEMP 37.8; O2SAT 92
--- NOTE | 2018-06-07 16:34 | PDOC.CMPRO ---
Care Management Progress Note S/O: Ambulating in the hallway. Remains NPO. States he feels a little bit better and has started to pass gas. A: 42yo male admitted for colon stricture with surgical intervention. P: Return home with when medically cleared for discharge. No services needed. [facility] will transport
[2018-06-07] MEDS: Enoxaparin 40 MG/0.4 ML SYR SC (20:04)
[2018-06-07 20:08] VITALS: BP 127/78; PULSE 69; RESP 18; TEMP 36.9; O2SAT 95
[2018-06-08 00:07] VITALS: BP 111/72; PULSE 97; RESP 17; TEMP 37.1; O2SAT 94
[2018-06-08] MEDS: Ketorolac 30 MG/ML VIAL IVP ×3 (01:26→14:41)
[2018-06-08] MEDS: ACETAMINOPHEN 1,000 MG/100 ML BTL 400 MG IVPB ×2 (01:26→09:51)
[2018-06-08] MEDS: Normal Saline Flush 10 ML SYR IVP ×4 (01:27→14:42)
[2018-06-08 03:25] VITALS: BP 101/56; PULSE 103; RESP 18; TEMP 36.5; O2SAT 91
[2018-06-08 07:29] LABS: Anion Gap 7.7 mmol/L (3-11); BUN 20 mg/dL (7-18); CO2 26.3 mmol/L (21.0-32.0); CREATININE 1.04 mg/dL (0.70-1.30); Calcium 8.6 mg/dL (8.5-10.1); Chloride 105 mmol/L (98-107); Glucose 81 mg/dL (70-100); Magnesium 2.1 mg/dL (1.8-2.4); Potassium 4.8 mmol/L (3.5-5.1); Sodium 139 mmol/L (136-145)
[2018-06-08 07:34] LABS: Abs Immature Grans 0.06 k/cumm (0.0-0.09); Absolute Lymphocyte Count 0.25 k/cumm (1.2-3.4); HCT 35.5 % (40.0-50.0); HGB 11.8 g/dL (13.5-17.5); Mean Corp. HGB Concentration 33.2 g/dL (32.0-36.0); Mean Corpuscular Hemoglobin 29.1 pg (27.0-33.0); Mean Corpuscular Volume 87.4 fL (80-95); Mean Platelet Volume 10.3 fL (8.0-11.0); Platelet Count 200 x1000/uL (130-400); RBC 4.06 m/cumm (4.50-6.00); RBC Distribution Width 14.9 % (11.8-14.1); White Blood Cell Count 3.62 k/cumm (4.4-10.8)
[2018-06-08 07:45] VITALS: BP 106/6; PULSE 105; RESP 17; TEMP 36.8; O2SAT 91
[2018-06-08 08:04] LABS: Absolute Monocyte Count 0.33 k/cumm (0.11-0.7); Absolute Neutrophil Count 2.93 k/cumm (1.2-6.7)
[2018-06-08 08:05] LABS: Diff Comment Manual Differential; RBC Morphology Normal
[2018-06-08] MEDS: Normal Saline 1,000 ML 150 ML IV (09:50)
[2018-06-08 10:24] VITALS: BP 108/56; PULSE 115; TEMP 37.2
[2018-06-08 11:44] VITALS: BP 114/70; PULSE 102; RESP 18; TEMP 36.7; O2SAT 94
--- NOTE | 2018-06-08 12:54 | W.PM.PROGNOT ---
Date of Service Date of service: 06/08/18 Time of Service: 12:54 Assessment and Plan (1) S/P colon resection: Current visit: Yes Status: Acute POD # 4 s/p laparoscopic hand-assisted sigmoid colon resection with takedown of splenic flexure for sigmoid stricture. Afebrile but tachycardia noted. Bandemia noted. Drain with feculent drainage consistent with an anastomotic leak. Leak appears to be diverting via drain and hopefully will be contained. Continue NPO except ice chips and Invanz for antibiotic coverage. May need to start TPN 06/09/18 as he has only had clears/ NPO for about 10 days. Encouraged OOB and ambulation as tolerated. Urine output volume is good (1350/24hrs) but urine still appears concentrated. Monitor vitals/ I/Os. Follow-up lytes/CBC in am. Discussed with patient that we will closely monitor. A contained leak may resolve with bowel rest/IV antibiotics/nutritional support. If he clinically deteriorates, we may have to return to surgery for washout and diverting colostomy. Patient appeared to understand and agree with discussion as outlined above. Will notify Dr. Gibbons of patient progress. Subjective Interval history since last seen: Patient c/o sweating/severe abdominal pain last night when getting back in bed after ambulating. Passed small amount of flatus with smear of stool on washcloth per patient. Abdomen platinum and palladium kettle tender and feels tight. Afebrile. Drain output is noted to be feculent this am with foul odor. Drain ouput ~ 125 cc so far today. WBC ~ 4k with 20 bands on differential. Started on Invanz last evening. NPO except ice chips. Exam Const General: cooperative, no acute distress and well developed Nutritional Appearance: well nourished Orientation: alert and oriented x3 Eyes Sclera: sclerae normal Resp Effort & Inspection: normal respiratory effort and able to speak in complete sentences Cardio Rate: tachycardic (100-110s) GI Inspection: distended (mildly), incision (lap sites - dry/clean/intact; LLQ maria a - small amount purulent drainage ) and other (drain - thin, brown, feculent fluid in bulb; more serous in tubing) Palpation: firm (slightly firm/tight), no guarding, not rigid and tender (moderately tender LLQ) Auscultation: hypoactive bowel sounds Skin General skin exam: no rashes or lesions noted and no jaundice Objective Objective Clinical Data: Abnormal lab results 06/08/18 06/08/18 Range/Units 06:44 06:44 WBC 3.62 L (4.4-10.8) k/cumm RBC 4.06 L (4.50-6.00) m/cumm Hgb 11.8 L (13.5-17.5) g/dL Hct 35.5 L (40.0-50.0) % RDW 14.9 H (11.8-14.1) % Absolute Lymphocytes 0.25 L (1.2-3.4) k/cumm BUN 20 H (7-18) mg/dL Vital Signs Temperature 37.2 C 06/08/18 10:24 Temperature Source Tympanic 06/08/18 10:24 Pulse 115 H 06/08/18 10:24 Pulse Rhythm Regular 06/08/18 09:45 Respiratory Rate 17 06/08/18 07:45 Respiratory Effort Non-Labored 06/08/18 09:45 Respiratory Depth Normal 06/08/18 09:45 Respiratory Pattern Normal 06/08/18 09:45 Blood Pressure 108/56 L 06/08/18 10:24 Pulse Oximetry 91 L 06/08/18 07:45 Respiratory End-tidal CO2 29 06/04/18 17:00 Oxygen Delivery Method Room Air 06/08/18 07:45 Oxygen Flow Rate 0 06/08/18 07:45 Pain Level 6 06/08/18 07:45 Comment 06/08/18 10:24 Intake & Output 06/07/18 06/08/18 06/08/18 23:59 11:59 23:59 Intake Total 1972.5 6.948 1100.296 / 1100.296 Output Total 1000 / 1405 475 / 475 Balance 972.5 / 1621.948 625.296 / 625.296 Intake: IV 1972.5 / 3026.948 1100.296 / 1100.296 Output: Drainage 125 / 125 Left Abdomen 125 / 125 Urine 1000 / 1350 350 / 350 Other: Urine Color Dark Hortensia Dark Hortensia Urine Appearance Clear Clear Urine Odor None Voiding Methods Indwelling Catheter Laboratory Results WBC 3.62 k/cumm (4.4-10.8) L 06/08/18 06:44 RBC 4.06 m/cumm (4.50-6.00) L 06/08/18 06:44 Hgb 11.8 g/dL (13.5-17.5) L 06/08/18 06:44 Hct 35.5 % (40.0-50.0) L 06/08/18 06:44 MCV 87.4 fL (80-95) 06/08/18 06:44 MCH 29.1 pg (27.0-33.0) 06/08/18 06:44 MCHC 33.2 g/dL (32.0-36.0) 06/08/18 06:44 RDW 14.9 % (11.8-14.1) H 06/08/18 06:44 Plt Count 200 x1000/uL (130-400) 06/08/18 06:44 MPV 10.3 fL (8.0-11.0) 06/08/18 06:44 Immature Gran % See Differential 06/08/18 06:44 Neutrophils % 61.0 06/08/18 06:44 Lymphocytes % 7.0 06/08/18 06:44 Monocytes % 9.0 06/08/18 06:44 Eosinophils % 0.0 06/08/18 06:44 Basophils % 0.0 06/08/18 06:44 Absolute Neutrophils 2.93 k/cumm (1.2-6.7) 06/08/18 06:44 Band Neutrophils 20.0 % 06/08/18 06:44 Absolute Lymphocytes 0.25 k/cumm (1.2-3.4) L 06/08/18 06:44 Absolute Monocytes 0.33 k/cumm (0.11-0.7) 06/08/18 06:44 Absolute Eosinophils 0.00 k/cumm (0.0-0.7) 06/08/18 06:44 Absolute Basophils 0.00 k/cumm (0.0-0.2) 06/08/18 06:44 Metamyelocytes 3.0 % 06/08/18 06:44 Differential Comment Manual differential 06/08/18 06:44 RBC Morphology Normal 06/08/18 06:44 Sodium 139 mmol/L (136-145) 06/08/18 06:44 Potassium 4.8 mmol/L (3.5-5.1) 06/08/18 06:44 Chloride 105 mmol/L (98-107) 06/08/18 06:44 Carbon Dioxide 26.3 mmol/L (21.0-32.0) 06/08/18 06:44 Anion Gap 7.7 mmol/L (3-11) 06/08/18 06:44 BUN 20 mg/dL (7-18) H 06/08/18 06:44 Creatinine 1.04 mg/dL (0.70-1.30) 06/08/18 06:44 Estimated GFR/1.73 m2 >= 60.00 (mL/min/1.73m2) 06/08/18 06:44 Glucose 81 mg/dL (70-100) 06/08/18 06:44 Calcium 8.6 mg/dL (8.5-10.1) 06/08/18 06:44 Magnesium 2.1 mg/dL (1.8-2.4) 06/08/18 06:44
--- NOTE | 2018-06-08 15:00 | DI.RAD_ITS ---
SYMPTOM/DIAGNOSIS: ABD PAIN, DISTENSION ABDOMINAL SERIES: There is poor inspiration. Heart size and pulmonary vasculature are within normal limits. There is an infiltrate seen in the left lower lobe. This may represent atelectasis or pneumonia. The lungs are otherwise clear. There is a moderate amount of pneumoperitoneum present. There is a somewhat mottled appearance of the left lateral abdomen. While this may represent scattered gas, extraluminal fecal material may be considered. The bowel shows no evidence of obstruction or dilatation. No organomegaly is seen. Note is a made of a percutaneous drain in the lower abdomen and pelvis. IMPRESSION: Moderate amount of pneumoperitoneum. The patient is status post bowel resection however anastomotic leak should be considered in this patient. Please correlate clinically.
[2018-06-08 16:19] VITALS: BP 103/64; PULSE 85; RESP 19; TEMP 37.3; O2SAT 93
--- NOTE | 2018-06-08 16:37 | DI.VRAD_ITS ---
EXAM: XR Abdomen 2 Views with XR Chest 1 View EXAM DATE/TIME: 06/08/2018 3:19 PM CLINICAL HISTORY: 42 years old, male; Signs and symptoms; Abdominal tenderness and other: Abdominal pain/ distention; Prior surgery; Surgery date: 3-7 days post-operative; Surgery type: Bowel resection TECHNIQUE: XR of the abdomen (2 views) with XR chest (1 view). COMPARISON: CR XR ABD FLAT UPRIGHT PA CHEST 04/09/2018 9:38 PM FINDINGS: Lungs: Left basilar opacity. Pleural space: Unremarkable. No pneumothorax. Heart/Mediastinum: Unremarkable. No cardiomegaly. Gastrointestinal tract: Nonspecific ill-defined mottled attenuation throughout the length of the left lateral abdomen may represent postoperative scattered intraperitoneal or subcutaneous gas bubbles, however, layering extraluminal fecal material is a concern. Gas and fluid throughout small bowel and colon. No frankly dilated loops of bowel. Moderate amount of solid stool at the rectum. Intraperitoneal space: Moderately-large amount of pneumoperitoneum, concerning for an anastomotic leak. Bones/joints: Unremarkable. No acute fracture. Soft tissues: Percutaneous drain in the lower abdomen/pelvis. Lower left abdominal skin maria a. IMPRESSION: 1. Findings concerning for an anastomotic leak. 2. Left basilar opacity could represent one or a combination of colon atelectasis, infection or pleural effusion. Results discussed with KARINA Casarez at 06/08/2018 4:31 PM EST. Dictated and Authenticated by: Debo Hines MD. Ordering:JENNY Rhodes MD
--- NOTE | 2018-06-08 17:33 | PDOC.CMPRO ---
Care Management Progress Note S/O: Hector is very anxious and has to return to the OR urgently this evening. Requested assistance with AD and we were able to complee before they transported him to Surgery. A: 42 yo male admitted for sigmoid stricture S/P Laparoscopic procedure now returning to the OR. P: Will need to follow and evaluate his discharge needs following this second procedure. Overall plan is to return home to his , Keli, and there 4 children when medically cleared for discharge.
[2018-06-08 20:42] LABS: HGB 11.6 g/dL (13.5-17.5); Mean Corp. HGB Concentration 34.1 g/dL (32.0-36.0); Mean Corpuscular Hemoglobin 29.4 pg (27.0-33.0); Mean Corpuscular Volume 86.3 fL (80-95); Mean Platelet Volume 9.7 fL (8.0-11.0); Platelet Count 168 x1000/uL (130-400); RBC 3.94 m/cumm (4.50-6.00); RBC Distribution Width 14.9 % (11.8-14.1); White Blood Cell Count 4.67 k/cumm (4.4-10.8)
[2018-06-08 20:59] LABS: ALT 19 U/L (12-78); AST 20 U/L (15-37); Albumin 1.5 g/dL (3.4-5.0); Alkaline Phosphatase 36 U/L (46-116); Anion Gap 9.8 mmol/L (3-11); BUN 23 mg/dL (7-18); Bilirubin, Total 0.4 mg/dL (0.2-1.0); CO2 24.2 mmol/L (21.0-32.0); CREATININE 1.04 mg/dL (0.70-1.30); Calcium 8.3 mg/dL (8.5-10.1); Chloride 107 mmol/L (98-107); Glucose 110 mg/dL (70-100); Potassium 4.7 mmol/L (3.5-5.1); Sodium 141 mmol/L (136-145); Total Protein 5.2 g/dL (6.4-8.2)
--- NOTE | 2018-06-08 22:52 | NUR.NOTE ---
Nursing Note: Pt's belongings transferred to ICU room 219 and spoke with Salena Camarillo RN. Called, spoke to [place], and reported pt put items in safe before going to OR.
[2018-06-08] MEDS: Bupivacaine 0.25% Pres-Free 30 ML VIAL (23:40)
[2018-06-08] MEDS: Normal Saline 50 ML 31 ML (23:40)
[2018-06-09] VITALS (110 sets, daily range): BP systolic 91–132; BP diastolic 42–84; PULSE 74–105; RESP 15–35; TEMP 36.2–37.7; O2SAT 87–97
--- NOTE | 2018-06-09 00:12 | W.PM.PROGNOT ---
Date of Service Date of service: 06/08/18 Time of Service: 17:30 Assessment and Plan (1) S/P colon resection: Current visit: Yes Status: Acute Bandemia, tachycardia, Free air on AXR, feculant drainage from surgical drain. Bowel perforation, most likely anastomotic leak, recommended return to OR for exploratory laparotomy with possible diverting ileostomy. I discussed the risks of the surgery with him, including but not limited to bleeding, infections, further bowel resection. anastomotic leaks. Patient was in agreement, Consent obtained to proceed. Subjective Patient reports: still having pain Interval history since last seen: Patient ROSS dressing started to drain marva stool. Increased pain, with distended abdomen. Exam Const General: cooperative, no acute distress and in distress Nutritional Appearance: obese Orientation: alert, awake and oriented x3 Resp Effort & Inspection: normal respiratory effort Auscultation: clear to auscultation bilaterally and diminished lung sounds bilaterally in the lower lung man Cardio Jugular venous pressure: no JVD Rate: tachycardic Rhythm: regular rhythm Heart Sounds: S1 normal and S2 normal GI Inspection: distended and incision (intact) Palpation: tender (Diffuse TTP) with no rebound tenderness Rectal Exam: deferred Skin General skin exam: no rashes or lesions noted and turgor normal Objective Objective Clinical Data: Vital Signs Temperature 37.3 C 06/08/18 16:19 Temperature Source Tympanic 06/08/18 16:19 Pulse 85 06/08/18 16:19 Pulse Rhythm Regular 06/08/18 09:45 Respiratory Rate 19 06/08/18 16:19 Respiratory Effort Non-Labored 06/08/18 09:45 Respiratory Depth Normal 06/08/18 09:45 Respiratory Pattern Normal 06/08/18 09:45 Blood Pressure 103/64 06/08/18 16:19 Pulse Oximetry 93 L 06/08/18 16:19 Respiratory End-tidal CO2 29 06/04/18 17:00 Oxygen Delivery Method Room Air 06/08/18 16:19 Oxygen Flow Rate 0 06/08/18 16:19 Pain Level 6 06/08/18 14:41 Comment 06/08/18 10:24 Intake & Output 06/08/18 06/08/18 06/09/18 06:59 18:59 06:59 Intake Total 1200.296 / 3172.796 Output Total 1145 / 1850 360 / 510 150 / 510 Balance 55.296 / 1322.796 -360 / -510 -150 / -510 Intake: IV 1200.296 / 3172.796 Output: Drainage 95 / 150 60 / 60 Left Abdomen 95 / 150 30 / 30 Right Abdomen 30 / 30 Urine 1050 / 1700 300 / 400 100 / 400 Estimated Blood Loss 50 / 50 Other: Urine Color Dark Hortensia Brown Dark Hortensia Urine Appearance Cloudy Clear Urine Odor None Comment URINE CONCENTRATED APPEARING Voiding Methods Indwelling Catheter Laboratory Results WBC 4.67 k/cumm (4.4-10.8) 06/08/18 20:35 RBC 3.94 m/cumm (4.50-6.00) L 06/08/18 20:35 Hgb 11.6 g/dL (13.5-17.5) L 06/08/18 20:35 Hct 34.0 % (40.0-50.0) L 06/08/18 20:35 MCV 86.3 fL (80-95) 06/08/18 20:35 MCH 29.4 pg (27.0-33.0) 06/08/18 20:35 MCHC 34.1 g/dL (32.0-36.0) 06/08/18 20:35 RDW 14.9 % (11.8-14.1) H 06/08/18 20:35 Plt Count 168 x1000/uL (130-400) 06/08/18 20:35 MPV 9.7 fL (8.0-11.0) 06/08/18 20:35 Immature Gran % See Differential 06/08/18 06:44 Neutrophils % 61.0 06/08/18 06:44 Lymphocytes % 7.0 06/08/18 06:44 Monocytes % 9.0 06/08/18 06:44 Eosinophils % 0.0 06/08/18 06:44 Basophils % 0.0 06/08/18 06:44 Absolute Neutrophils 2.93 k/cumm (1.2-6.7) 06/08/18 06:44 Band Neutrophils 20.0 % 06/08/18 06:44 Absolute Lymphocytes 0.25 k/cumm (1.2-3.4) L 06/08/18 06:44 Absolute Monocytes 0.33 k/cumm (0.11-0.7) 06/08/18 06:44 Absolute Eosinophils 0.00 k/cumm (0.0-0.7) 06/08/18 06:44 Absolute Basophils 0.00 k/cumm (0.0-0.2) 06/08/18 06:44 Metamyelocytes 3.0 % 06/08/18 06:44 Differential Comment Manual differential 06/08/18 06:44 RBC Morphology Normal 06/08/18 06:44 Sodium 141 mmol/L (136-145) 06/08/18 20:35 Potassium 4.7 mmol/L (3.5-5.1) 06/08/18 20:35 Chloride 107 mmol/L (98-107) 06/08/18 20:35 Carbon Dioxide 24.2 mmol/L (21.0-32.0) 06/08/18 20:35 Anion Gap 9.8 mmol/L (3-11) 06/08/18 20:35 BUN 23 mg/dL (7-18) H 06/08/18 20:35 Creatinine 1.04 mg/dL (0.70-1.30) 06/08/18 20:35 Estimated GFR/1.73 m2 >= 60.00 (mL/min/1.73m2) 06/08/18 20:35 Glucose 110 mg/dL (70-100) H 06/08/18 20:35 Calcium 8.3 mg/dL (8.5-10.1) L 06/08/18 20:35 Magnesium 2.1 mg/dL (1.8-2.4) 06/08/18 06:44 Total Bilirubin 0.4 mg/dL (0.2-1.0) 06/08/18 20:35 AST 20 U/L (15-37) 06/08/18 20:35 ALT 19 U/L (12-78) 06/08/18 20:35 Alkaline Phosphatase 36 U/L (46-116) L 06/08/18 20:35 Total Protein 5.2 g/dL (6.4-8.2) L 06/08/18 20:35 Albumin 1.5 g/dL (3.4-5.0) L 06/08/18 20:35
[2018-06-09] MEDS: Normal Saline 1,000 ML 150 ML IV (00:47)
[2018-06-09] MEDS: Normal Saline Flush 10 ML SYR IVP ×3 (00:48→09:45)
[2018-06-09 01:06] LABS: BUN 23 mg/dL (7-18); CREATININE 0.82 mg/dL (0.70-1.30); Calcium 8.5 mg/dL (8.5-10.1); Chloride 107 mmol/L (98-107); Creatine Kinase 149 U/L (39-308); Glucose 126 mg/dL (70-100); Potassium 5.4 mmol/L (3.5-5.1); Sodium 140 mmol/L (136-145)
[2018-06-09] MEDS: ACETAMINOPHEN 1,000 MG/100 ML BTL 400 MG IVPB ×3 (02:06→16:56)
[2018-06-09] MEDS: Ondansetron 4 MG/2 ML VIAL IVP (02:07)
[2018-06-09] MEDS: Lactated Ringers 1,000 ML 150 ML IV ×2 (02:14→10:37)
[2018-06-09 06:49] LABS: HCT 33.7 % (40.0-50.0); HGB 11.2 g/dL (13.5-17.5); Mean Corp. HGB Concentration 33.2 g/dL (32.0-36.0); Mean Corpuscular Hemoglobin 28.8 pg (27.0-33.0); Mean Corpuscular Volume 86.6 fL (80-95); Mean Platelet Volume 9.9 fL (8.0-11.0); Platelet Count 214 x1000/uL (130-400); RBC 3.89 m/cumm (4.50-6.00); RBC Distribution Width 15.1 % (11.8-14.1); White Blood Cell Count 7.39 k/cumm (4.4-10.8)
--- NOTE | 2018-06-09 07:18 | W.PM.PROGNOT ---
Date of Service Date of service: 06/09/18 Time of Service: 07:10 Assessment and Plan (1) Anastomotic leak of intestine: Current visit: Yes Status: Acute POD #4- s/p sigmoid resection for stricture POD#1 s/p ex-lap for anastamotic leak with resection, re-anastamosis and loop ileostomy creation P\\1. Diet: Continue NPO for now 2. Nutrition: STart TPN as patient wasn't eating much for last 7 days prior to surgery 3. Leukocytosis - on Antibiotics. Improving. Continue antibiotics 4. Activity: start to increase activity as tolerated 5. Pain: doing well with epidural. Continue per Anesthesia 6. DVT prophilaxis: Continue with Lovenox 7. Ulcer prophilaxis: continue with BID H2 mireya 8. Stop NS. Continue LR (2) Sore throat: Current visit: Yes Status: Acute Started after second surgery Start cepacol lozanges Anesthesia notified Subjective Interval history since last seen: Mr. Farfan is POD#4/1 and is doing better then last night. Unfortunately he developed a leak from his anastamosis. He was taken back to the OR yesterday for exploratory laparotomy. The anastamosis was taken down and redone. He now has a diverting loop ileostomy. He is tearful this morning. He tells me I have 8 weeks to get better. Apparently his is scheduled for surgery at [facility] for Gastric bypass surgery. He has a 3 year old at home that he misses. He does state that he feels better then last night. His pain is well controlled with the epidural except if he has to cough. He does have to be on O2 right now to keep O2 >92%. Nursing staff worried about his urine being orange/brown. His UOP is good. Exam Const General: cooperative and no acute distress Eyes Pupils: PERRL Resp Effort & Inspection: normal respiratory effort Auscultation: clear to auscultation bilaterally Cardio Rate: regular rate Rhythm: regular rhythm Heart Sounds: no gallops, no murmurs and no rubs GI Inspection: normal to inspection and incision (c/d/i) Palpation: soft and no hepatosplenomegaly Auscultation: hypoactive bowel sounds Objective Objective Clinical Data: Abnormal lab results 06/08/18 06/08/18 06/08/18 Range/Units 06:44 06:44 20:35 WBC 3.62 L (4.4-10.8) k/cumm RBC 4.06 L (4.50-6.00) m/cumm Hgb 11.8 L (13.5-17.5) g/dL Hct 35.5 L (40.0-50.0) % RDW 14.9 H (11.8-14.1) % Absolute Lymphocytes 0.25 L (1.2-3.4) k/cumm Potassium (3.5-5.1) mmol/L Carbon Dioxide (21.0-32.0) mmol/L Anion Gap (3-11) mmol/L BUN 20 H 23 H (7-18) mg/dL Glucose 110 H (70-100) mg/dL Calcium 8.3 L (8.5-10.1) mg/dL Alkaline Phosphatase 36 L (46-116) U/L Total Protein 5.2 L (6.4-8.2) g/dL Albumin 1.5 L (3.4-5.0) g/dL 18 06/09/18 Range/Units 20:35 00:45 WBC (4.4-10.8) k/cumm RBC 3.94 L (4.50-6.00) m/cumm Hgb 11.6 L (13.5-17.5) g/dL Hct 34.0 L (40.0-50.0) % RDW 14.9 H (11.8-14.1) % Absolute Lymphocytes (1.2-3.4) k/cumm Potassium 5.4 H (3.5-5.1) mmol/L Carbon Dioxide 20.0 L (21.0-32.0) mmol/L Anion Gap 13.0 H (3-11) mmol/L BUN 23 H (7-18) mg/dL Glucose 126 H (70-100) mg/dL Calcium (8.5-10.1) mg/dL Alkaline Phosphatase (46-116) U/L Total Protein (6.4-8.2) g/dL Albumin (3.4-5.0) g/dL Vital Signs Temperature 99.0 F 06/09/18 04:10 Temperature Source Temporal Artery Scan 06/09/18 04:10 Pulse 101 H 06/09/18 05:01 Pulse Rhythm Regular 06/08/18 09:45 Pulse 102 H 06/09/18 05:01 Respiratory Rate 27 H 06/09/18 05:01 Respiratory Effort 06/09/18 04:10 Respiratory Depth Normal 06/09/18 04:10 Respiratory Pattern Normal 06/09/18 04:10 Blood Pressure 114/54 L 06/09/18 05:01 Blood Pressure Mean 67 06/09/18 05:01 Blood Pressure Position Supine 06/09/18 00:15 Pulse Oximetry 90 L 06/09/18 05:01 Respiratory End-tidal CO2 30 06/09/18 02:01 Oxygen Delivery Method Nasal Cannula 06/09/18 00:15 Oxygen Flow Rate 3 06/09/18 00:15 Pain Level 7 06/09/18 04:10 Comment 06/08/18 10:24 Intake & Output 06/08/18 06/08/18 06/09/18 11:59 23:59 11:59 Intake Total 1100.296 / 4677.786 0769 / 1370 Output Total 475 / 955 480 / 955 650 / 650 Balance 625.296 / 145.296 -480 / 145.296 720 / 720 Weight 247 lb 9.266 oz Intake: IV 1100.296 / 6276.014 5749 / 1370 Output: Drainage 125 / 155 30 / 155 150 / 150 Left Abdomen 125 / 125 Left Lower Distal Abdomen 150 / 150 Right Abdomen 30 / 30 Urine 350 / 750 400 / 750 400 / 400 Stool 100 / 100 Estimated Blood Loss 50 / 50 Other: Urine Color Dark Hortensia Dark Hortensia [place] Urine Appearance Clear Cloudy Purulent Comment URINE CONCENTRATED APPEARING urine is extremely cloudy and an orange/red color. Laboratory Results WBC 4.67 k/cumm (4.4-10.8) 06/08/18 20:35 RBC 3.94 m/cumm (4.50-6.00) L 06/08/18 20:35 Hgb 11.6 g/dL (13.5-17.5) L 06/08/18 20:35 Hct 34.0 % (40.0-50.0) L 06/08/18 20:35 MCV 86.3 fL (80-95) 06/08/18 20:35 MCH 29.4 pg (27.0-33.0) 06/08/18 20:35 MCHC 34.1 g/dL (32.0-36.0) 06/08/18 20:35 RDW 14.9 % (11.8-14.1) H 06/08/18 20:35 Plt Count 168 x1000/uL (130-400) 06/08/18 20:35 MPV 9.7 fL (8.0-11.0) 06/08/18 20:35 Immature Gran % See Differential 06/08/18 06:44 Neutrophils % 61.0 06/08/18 06:44 Lymphocytes % 7.0 06/08/18 06:44 Monocytes % 9.0 06/08/18 06:44 Eosinophils % 0.0 06/08/18 06:44 Basophils % 0.0 06/08/18 06:44 Absolute Neutrophils 2.93 k/cumm (1.2-6.7) 06/08/18 06:44 Band Neutrophils 20.0 % 06/08/18 06:44 Absolute Lymphocytes 0.25 k/cumm (1.2-3.4) L 06/08/18 06:44 Absolute Monocytes 0.33 k/cumm (0.11-0.7) 06/08/18 06:44 Absolute Eosinophils 0.00 k/cumm (0.0-0.7) 06/08/18 06:44 Absolute Basophils 0.00 k/cumm (0.0-0.2) 06/08/18 06:44 Metamyelocytes 3.0 % 06/08/18 06:44 Differential Comment Manual differential 06/08/18 06:44 RBC Morphology Normal 06/08/18 06:44 Sodium 140 mmol/L (136-145) 06/09/18 00:45 Potassium 5.4 mmol/L (3.5-5.1) H 06/09/18 00:45 Chloride 107 mmol/L (98-107) 06/09/18 00:45 Carbon Dioxide 20.0 mmol/L (21.0-32.0) L 06/09/18 00:45 Anion Gap 13.0 mmol/L (3-11) H 06/09/18 00:45 BUN 23 mg/dL (7-18) H 06/09/18 00:45 Creatinine 0.82 mg/dL (0.70-1.30) 06/09/18 00:45 Estimated GFR/1.73 m2 >= 60.00 (mL/min/1.73m2) 06/09/18 00:45 Glucose 126 mg/dL (70-100) H 06/09/18 00:45 Calcium 8.5 mg/dL (8.5-10.1) 06/09/18 00:45 Magnesium 2.1 mg/dL (1.8-2.4) 06/08/18 06:44 Total Bilirubin 0.4 mg/dL (0.2-1.0) 06/08/18 20:35 AST 20 U/L (15-37) 06/08/18 20:35 ALT 19 U/L (12-78) 06/08/18 20:35 Alkaline Phosphatase 36 U/L (46-116) L 06/08/18 20:35 Creatine Kinase 149 U/L (39-308) 06/09/18 00:45 Total Protein 5.2 g/dL (6.4-8.2) L 06/08/18 20:35 Albumin 1.5 g/dL (3.4-5.0) L 06/08/18 20:35
[2018-06-09 07:25] LABS: Absolute Monocyte Count 0.52 k/cumm (0.11-0.7); Absolute Neutrophil Count 6.13 k/cumm (1.2-6.7); Anisocytosis 1+; Diff Comment Manual Differential
[2018-06-09 07:26] LABS: Burr Cells (echinocyte) 2+; Polychromasia Present
[2018-06-09 07:51] LABS: ESR 81 MM/HR (0-15)
[2018-06-09 07:53] LABS: ALT 21 U/L (12-78); AST 35 U/L (15-37); Albumin 1.3 g/dL (3.4-5.0); Alkaline Phosphatase 33 U/L (46-116); Anion Gap 10.8 mmol/L (3-11); BUN 23 mg/dL (7-18); Bilirubin, Total 0.5 mg/dL (0.2-1.0); CO2 24.2 mmol/L (21.0-32.0); CREATININE 0.83 mg/dL (0.70-1.30); Calcium 8.4 mg/dL (8.5-10.1); Chloride 107 mmol/L (98-107); Glucose 117 mg/dL (70-100); Magnesium 2.4 mg/dL (1.8-2.4); Potassium 4.6 mmol/L (3.5-5.1); Sodium 142 mmol/L (136-145); Total Protein 4.9 g/dL (6.4-8.2)
[2018-06-09 08:00] LABS: C-Reactive Protein > 25.00 mg/dL (0.0-0.3)
[2018-06-09] MEDS: Bacitracin 1 PACKET (08:33)
--- NOTE | 2018-06-09 08:41 | ROE_ITS ---
REPORT OF OPERATIVE PROCEDURE DATE OF PROCEDURE June 08, 2018 PREOPERATIVE DIAGNOSIS Free air under the diaphragm. POSTOPERATIVE DIAGNOSIS Anastomotic leak of rectosigmoid colon. PROCEDURES 1. Exploratory laparotomy with repair of anastomotic leak. 2. Diverting ileostomy. SURGEON Sy Gibbons D.O. ASSISTANTS 1. Meagan Duenas M.D. 2. Razia Villatoro PA-C ANESTHESIA General anesthesia by Andria Wilkinson C.R.N.A. ASA-IIMallampati Class - 2 Local 1.3% Exparel with 0.25% Marcaine ESTIMATED BLOOD LOSS 50 ml DRAINS 1. Medial drain #19-German Jameson drain intraabdominal. 2. #19-German Jameson drain subcutaneous wound. INDICATIONS This is a 42-year-old gentleman who had been diagnosed with partial colonic obstruction believed secondary to diverticulitis and had undergone resection of the partially obstructed segment of the sigmoid colon last week. He had been slow in recovering and plateaued over this weekend. He had had a ROSS in place, which this morning started to put out feculent material. His vital signs, he had become more tachycardic, but hemodynamically was stable. Subsequent abdominal x- ray demonstrated free air under the diaphragm. It was recommended he undergo exploratory laparotomy for suspected anastomotic leak. The procedure was discussed with him, and the possibility of a diverting ileostomy was discussed. The risks of the procedure were discussed with him including potential for abscesses, bleeding, further anastomotic leak, hernia. All of his questions were answered to his satisfaction and consent was obtained to proceed. FINDINGS On entering the abdomen through his prior incision, a large hong of air on entering and with minimal manipulation of bowel, a large amount of feculent fluid was drained. On examination of the anastomosis, the fluid was drained and the wound fully exposed, it was noted that there had been a disruption of the posterior staple line with near complete disruption of the anastomosis. The anastomosis was subsequently revised which was hand-sewn, and then a diverting ileostomy was placed. Drains were placed both into the abdomen and subcutaneously. DESCRIPTION OF PROCEDURE The patient was brought to the Operating Room. He has been receiving ertapenem 1 gram daily and he was re-dosed prior to surgery. He had sequential compression devices in place. A Donis catheter was in place. Prior to positioning, an epidural catheter was placed by Anesthesia, please see separate procedure report for this. He was then positioned supine. The abdomen was prepped and then once endotracheal tube was placed and sedation was titrated for effect, he was placed in the dorsal lithotomy position. Prior to surgery, the maria a were removed from his central line, and his abdominal drain was removed. The abdomen was prepped with Betadine. His arms were extended 90 degrees. He was blocked draped in a standard sterile fashion. I began by opening the wound that had already partially opened after removing the maria a, so I completed opening the skin incision bluntly, and looked down to the anterior rectus fascia. The staple line was intact. The sutures were divided. The posterior staple line was intact also. I did remove the posterior rectus suture line to open the wound. There was a large hong of air on doing this. I then did some blunt dissection with fingers, which released a large volume of feculent fluid, which was subsequently suctioned out, and I did irrigate copiously to clear this out for visualization. Once I had the wound fully opened to its prior dimensions, I did extend the skin incision medially and laterally, and the fascia medially, and transversely for better exposure. An Omni Retractor was placed for retraction of the abdominal wall and bowel contents. After irrigating the wound, suctioning out as much of the feculent fluid as I was able. I then proceeded to expose the anastomosis. The small bowel was swept medially. I was able to expose the anastomosis, which was really directly under the incision. I was able to circumferentially explore the anastomoses. At first, I thought it was fairly intact, but on further exploration, it was clear that the posterior staple line that had been intact from the original surgery, now had failed and it was only being held by my anterior suture line. After further exploring around this, there was insufficient remaining to try to repair the staple line, I opted to re-do the anastomosis with a hand-sewn anastomoses. To do this, I did place Stay sutures on the distal bowel to hold this in place. I then bluntly dissected the remainder of the staple line. With distal Stay sutures in place, I freshened up the proximal loop of bowel edges. Both the proximal and distal bowel appeared viable. I then used #3-[address] full-thickness posterior sutures for the anastomosis. Once I had put the posterior 180-degree sutures in, I removed my Stay sutures, tied the posterior suture line down. I had to place these so the staple line would be exterior. Once the posterior suture line was tied down, the sutures were trimmed. I then similarly, placed an anterior 180-degree staple line again using #3-0 Silk sutures, simple interrupted to create the anterior 180-degrees of the anastomoses. Once, this was finished, I then did Lembert sutures around the anterior 180 degrees. The posterior wall was against the abdominal wall, I also maneuvered omentum down to help reinforce the posterior anastomosis. Once the anastomosis had been re-done, I again, copiously irrigated the abdomen, going all the way over to the right gutter and traveling up, in an attempt above the liver the best I could irrigating with four liters of warm saline until the irrigant was clear. There was fibrinous exudate over some portions of small bowel that was stripped as best as possible. With the abdomen irrigated, wanting to allow the anastomosis to heal, I then created a diverting loop ileostomy. Prior to placing the loop ileostomy, I replaced a #19-German Jameson drain that went into the abdomen and down into the pelvis to control any further drainage from the anastomosis while it was healing. I then located the cecum and found the terminal ileum. I followed that proximal to the terminal ileum for approximately 30 to 40 centimeters in distance on the small bowel, until I was in the ileum and identifying the loop. I then created in the right lower quadrant approximately two fingers inferior and two fingers lateral to the umbilicus, an ostomy to pass the loop through. The skin was grasped with Allis clamp. Using a #10-blade, the skin was divided to create a muscogee. The subcutaneous fat was removed, just smaller than the size of the ring down to the anterior rectus fascia, which was opened in a cruciate form. #2-0 Vicryl sutures were placed in each corner. The rectus muscles were bluntly divided to expose the posterior rectus, which was divided in a transverse fashion, opened in such a way that I could passage of two fingers and stretch the rectus opening. It did require a little division of some of the muscle fibers to create a large enough space to pass the loop. Once the ostomy opening was made, I passed a [place] through this to grasp the loop and pull it up through the wound. Once this was up into the wound and it had adequate length, and no tension, I then used the prior-placed #2-0 Vicryl sutures and completed sewing the #2-0 Vicryl sutures to through the serosa to attach it to the fascia of the anterior rectus sheath. With this done, I then turned by attention to closing the main wound. The posterior rectus fascia and the prior open wound was closed using a running #0- Vicryl suture. The Exparel and Marcaine were injected into the fascia at the left lower quadrant wound and at the ostomy wound. The Exparel and Marcaine was also injected around the skin incision. The anterior rectus fascia of the left lower quadrant abdominal incision was closed using #1-Vicryl in a [id number] fashion. Once the anterior rectus fascia was closed, I placed a second Jameson drain, a #19-German into the subcutaneous tissue. The subcutaneous tissue was closed over the drain using maria a. The drains were sewn into place.. The subcutaneous drain came out lateral to the wound and lateral to the abdominal drain. Both drains were sewed in place using Silk sutures. Once the abdominal wound was closed, drains in place, these were hooked to a Hemovac suction device. I turned my attention to maturing the loop ileostomy. The apex of the loop was opened transversely. #2-0 Vicryl was used in four quadrants, was passed through the skin, then to the serosa, then a full-layered bite of the edge of the bowel that had been opened from the transverse incision. This was repeated, so I had four-quadrant fixation. Then, in between the four quadrants, I started filling in with skin to full thickness, sutures of #2-0 Vicryl. I continued filling in, in between stitches until I had circumferentially closed up the ostomy around the bowel. I then gently dilated each limb of the loop to make sure I could easily pass a finger down below the fascia. The mucosa looked viable. An ostomy bag was then placed. There were no complications during the case. The patient tolerated it very well. He was extubated in the Operating Room and brought to the ICU in good condition. All counts were reported as correct x2.
--- NOTE | 2018-06-09 09:07 | PDOC.CMPRO ---
- If Service Date Differs Date of service: 06/09/18 Time of Service: 09:07 Care Management Progress Note S/O: Hector is lying in bed in the ICU with his , Keli, at bedside when CM visits this morning. He is engaged in conversation, makes good eye contact, and is talkative. Hector developed a leak from his anastamosis and returned to the OR on the (Saturday) for an exploratory laparotomy. Hector now has a diverting loop ileostomy and had a PICC line placed this morning. He will begin receiving TPN later today, is receiving supplemental O2 via NC and has an epidural in place for pain management. Hector's interactions with his , Keli, are 'frosty' at best. Keli reports that she is disabled due to complications from a hernia repair with a MD (who is also involved with Hector's care). She reports that this is a 'trigger' for her and she is reportedly having a very hard time with this and his hospitalization. Hector is teary and apologetic to Keli. CM attempts to calm the situation and remind him that he has not chosen to be hospitalized and none of this is his 'fault'. Keli is scheduled for gastric bypass surgery in July at [facility] and is concerned that her recovery will take 12-18 months and Hector is having his medical problems. A: 42 year old male admitted with a colon stricture. P: Hector will discharge home when medically ready per MD. Anticipate patient will discharge home with no services and follow up with surgical services. Hector will transport via private vehicle with his , Keli. CM will continue to offer support to patient, family, and care team regarding discharge planning and disposition.
--- NOTE | 2018-06-09 09:41 | W.NUTCONSULT ---
Date of service: 06/09/18 Time of Service: 09:41 Nutritional Consult ASSESSMENT: Mr. Farfan has been NPO x 4 days. He had an anastomotic leak and had to have a diverting colostomy. He was eating well prior to admission and on the days that he could eat while he was here per EHR. He is 68 and 247 lbs. which gives him a BMI of 35.5 consistent with class 2 obesity. His estimated energy needs are 2220 calories per day (REE x 1.2). His estimated protein needs are [id number] based on 1.0-1.2 g/kg of adjusted ideal body weight of 96.9 kg. Fluid needs are at least 2220 ml/day (1 ml kcal provided. NUTRITIONAL DIAGNOSIS: Inability to take oral foods and fluids related to necessary NPO status. INTERVENTION: TPN recommendations are the followin.5 L of 5% amino acid, 15% dextrose, and 250 ml of 20% lipid emulsion to be run continuously. MONITORING AND EVALUATION: Will continue to follow weight and will watch for advance of PO and help facilitate a tolerable nutrient dense oral nutrition therapy when he is ready. Time Spent in Nutritional Counseling and Treatment: SHANAE
--- NOTE | 2018-06-09 09:51 | NS.NUTBLAN_ITS ---
Date of service: 06/09/18 Time of Service: 09:41 Nutritional Consult ASSESSMENT: Mr. Farfan has been NPO x 4 days. He had an anastomotic leak and had to have a diverting colostomy. He was eating well prior to admission and on the days that he could eat while he was here per EHR. He is 68 and 247 lbs. which gives him a BMI of 35.5 consistent with class 2 obesity. His estimated energy needs are 2220 calories per day (REE x 1.2). His estimated protein needs are [id number] based on 1.0-1.2 g/kg of adjusted ideal body weight of 96.9 kg. Fluid needs are at least 2220 ml/day (1 ml kcal provided. NUTRITIONAL DIAGNOSIS: Inability to take oral foods and fluids related to necessary NPO status. INTERVENTION: TPN recommendations are the followin.5 L of 5% amino acid, 15% dextrose, and 250 ml of 20% lipid emulsion to be run continuously. MONITORING AND EVALUATION: Will continue to follow weight and will watch for advance of PO and help facilitate a tolerable nutrient dense oral nutrition therapy when he is ready. Time Spent in Nutritional Counseling and Treatment: SHANAE
--- NOTE | 2018-06-09 14:01 | PGE_ITS ---
Date of Service Date of service: 06/09/18 Time of Service: 13:52 Assessment and Plan (1) V-tach: Start date: 06/09/18 Start time: 14:00 Current visit: Yes Status: Chronic to monitor, fu labs, cadiology consult if reacurs (2) Malnutrition of mild degree: Start date: 06/09/18 Start time: 14:01 Current visit: Yes Status: Acute started TPN, will start fingersticks due to the tpn having insulin in it Subjective Patient reports: no new complaints Exam Narrative Exam Narrative: Was called to the bedside for a report of Vtache. Pt seen and examine nurse BS. This spontaneously resolved and the pt is asymptomatic. Appears pt is septic and had a cardiac response to this not requiring any further w/o curremtly. The nurse also need the fingersticks ordered (due to being now on TPN) and the pt was still on bot LR and NS. I reviewed his labs the LR can be discontinued and the NS continued at the cureent rate the pt still has concentrated urine and with the events as mentioned would cont the fluids at the current rate. will check labs and cont tx Objective Objective Clinical Data: Abnormal lab results 06/08/18 06/08/18 06/09/18 Range/Units 20:35 20:35 00:45 RBC 3.94 L (4.50-6.00) m/cumm Hgb 11.6 L (13.5-17.5) g/dL Hct 34.0 L (40.0-50.0) % RDW 14.9 H (11.8-14.1) % Absolute Lymphocytes (1.2-3.4) k/cumm ESR (0-15) MM/HR Potassium 5.4 H (3.5-5.1) mmol/L Carbon Dioxide 20.0 L (21.0-32.0) mmol/L Anion Gap 13.0 H (3-11) mmol/L BUN 23 H 23 H (7-18) mg/dL Glucose 110 H 126 H (70-100) mg/dL Calcium 8.3 L (8.5-10.1) mg/dL Alkaline Phosphatase 36 L (46-116) U/L C-Reactive Protein (0.0-0.3) mg/dL Total Protein 5.2 L (6.4-8.2) g/dL Albumin 1.5 L (3.4-5.0) g/dL 06/09/18 06/09/18 Range/Units 06:15 06:15 RBC 3.89 L (4.50-6.00) m/cumm Hgb 11.2 L (13.5-17.5) g/dL Hct 33.7 L (40.0-50.0) % RDW 15.1 H (11.8-14.1) % Absolute Lymphocytes 0.30 L (1.2-3.4) k/cumm ESR 81 H (0-15) MM/HR Potassium (3.5-5.1) mmol/L Carbon Dioxide (21.0-32.0) mmol/L Anion Gap (3-11) mmol/L BUN 23 H (7-18) mg/dL Glucose 117 H (70-100) mg/dL Calcium 8.4 L (8.5-10.1) mg/dL Alkaline Phosphatase 33 L (46-116) U/L C-Reactive Protein > 25.00 H (0.0-0.3) mg/dL Total Protein 4.9 L (6.4-8.2) g/dL Albumin 1.3 L (3.4-5.0) g/dL Vital Signs Temperature 36.2 C L 06/09/18 13:11 Temperature Source Temporal Artery Scan 06/09/18 12:56 Pulse 94 H 06/09/18 13:11 Pulse Rhythm Regular 06/08/18 09:45 Pulse 100 H 06/09/18 08:31 Respiratory Rate 28 H 06/09/18 13:11 Respiratory Effort Non-Labored 06/09/18 12:56 Respiratory Depth Normal 06/09/18 12:56 Respiratory Pattern Normal 06/09/18 12:56 Blood Pressure 125/72 06/09/18 13:11 Blood Pressure Mean 74 06/09/18 08:30 Blood Pressure Position Supine 06/09/18 00:15 Pulse Oximetry 94 L 06/09/18 13:11 Respiratory End-tidal CO2 30 06/09/18 02:01 Oxygen Delivery Method Nasal Cannula 06/09/18 13:11 Oxygen Flow Rate 1 06/09/18 13:11 Pain Level 4 06/09/18 13:11 Comment 06/08/18 10:24 Intake & Output 06/08/18 06/09/18 06/09/18 23:59 11:59 23:59 Intake Total 2470 / 2470 Output Total 480 / 955 700 / 700 Balance -480 / 876.970 5583 / 1770 Weight 112.3 kg Intake: IV 0 / 0 Output: Drainage 30 / 155 200 / 200 Left Lower Distal Abdomen 200 / 200 Right Abdomen 30 / 30 Urine 400 / 750 400 / 400 Stool 100 / 100 Estimated Blood Loss 50 / 50 Other: Urine Color Dark Hortensia Light Hortensia Light Hortensia [employer] Brown Urine Appearance Cloudy Cloudy Purulent Comment URINE CONCENTRATED APPEARING Donis in place draining dark yellow pink tinged urine Donis in place draining dark yellow pink tinged urine Laboratory Results WBC 7.39 k/cumm (4.4-10.8) D 06/09/18 06:15 RBC 3.89 m/cumm (4.50-6.00) L 06/09/18 06:15 Hgb 11.2 g/dL (13.5-17.5) L 06/09/18 06:15 Hct 33.7 % (40.0-50.0) L 06/09/18 06:15 MCV 86.6 fL (80-95) 06/09/18 06:15 MCH 28.8 pg (27.0-33.0) 06/09/18 06:15 MCHC 33.2 g/dL (32.0-36.0) 06/09/18 06:15 RDW 15.1 % (11.8-14.1) H 06/09/18 06:15 Plt Count 214 x1000/uL (130-400) 06/09/18 06:15 MPV 9.9 fL (8.0-11.0) 06/09/18 06:15 Immature Gran % See Differential 06/09/18 06:15 Neutrophils % 38.0 06/09/18 06:15 Lymphocytes % 4.0 06/09/18 06:15 Monocytes % 7.0 06/09/18 06:15 Eosinophils % 0.0 06/09/18 06:15 Basophils % 0.0 06/09/18 06:15 Absolute Neutrophils 6.13 k/cumm (1.2-6.7) 06/09/18 06:15 Band Neutrophils 45.0 % 06/09/18 06:15 Absolute Lymphocytes 0.30 k/cumm (1.2-3.4) L 06/09/18 06:15 Absolute Monocytes 0.52 k/cumm (0.11-0.7) 06/09/18 06:15 Absolute Eosinophils 0.00 k/cumm (0.0-0.7) 06/09/18 06:15 Absolute Basophils 0.00 k/cumm (0.0-0.2) 06/09/18 06:15 Metamyelocytes 4.0 % 06/09/18 06:15 Myelocytes 2.0 % 06/09/18 06:15 Differential Comment Manual differential 06/09/18 06:15 RBC Morphology See below 06/09/18 06:15 Polychromasia Present 06/09/18 06:15 Anisocytosis 1+ 06/09/18 06:15 Bristol Cells 2+ 06/09/18 06:15 ESR 81 MM/HR (0-15) H 06/09/18 06:15 Sodium 142 mmol/L (136-145) 06/09/18 06:15 Potassium 4.6 mmol/L (3.5-5.1) 06/09/18 06:15 Chloride 107 mmol/L (98-107) 06/09/18 06:15 Carbon Dioxide 24.2 mmol/L (21.0-32.0) 06/09/18 06:15 Anion Gap 10.8 mmol/L (3-11) 06/09/18 06:15 BUN 23 mg/dL (7-18) H 06/09/18 06:15 Creatinine 0.83 mg/dL (0.70-1.30) 06/09/18 06:15 Estimated GFR/1.73 m2 >= 60.00 (mL/min/1.73m2) 06/09/18 06:15 Glucose 117 mg/dL (70-100) H 06/09/18 06:15 Calcium 8.4 mg/dL (8.5-10.1) L 06/09/18 06:15 Magnesium 2.4 mg/dL (1.8-2.4) 06/09/18 06:15 Total Bilirubin 0.5 mg/dL (0.2-1.0) 06/09/18 06:15 AST 35 U/L (15-37) 06/09/18 06:15 ALT 21 U/L (12-78) 06/09/18 06:15 Alkaline Phosphatase 33 U/L (46-116) L 06/09/18 06:15 Creatine Kinase 149 U/L (39-308) 06/09/18 00:45 C-Reactive Protein > 25.00 mg/dL (0.0-0.3) H 06/09/18 06:15 Total Protein 4.9 g/dL (6.4-8.2) L 06/09/18 06:15 Albumin 1.3 g/dL (3.4-5.0) L 06/09/18 06:15
[2018-06-09 14:51] LABS: Anion Gap 8.5 mmol/L (3-11); BUN 23 mg/dL (7-18); CO2 27.5 mmol/L (21.0-32.0); CREATININE 0.94 mg/dL (0.70-1.30); Calcium 8.6 mg/dL (8.5-10.1); Chloride 107 mmol/L (98-107); Glucose 124 mg/dL (70-100); Magnesium 2.3 mg/dL (1.8-2.4); Potassium 4.6 mmol/L (3.5-5.1); Sodium 143 mmol/L (136-145)
--- NOTE | 2018-06-09 16:12 | PDOC.ANES ---
daily epidural management Pt has epidural infusion running at 12 ml/hour. He is using his PCEA button. My sense is that he likes to have this control. He feels that his pain control is adequate. His RN and I helped him take steps to chair. Good motor strength and denies any decrease in sensation. Site examined and is clean and dry with intact dressings. Reports a sore throat since emerging from anesthesia. Gradual improvement. No note made of any difficulty with airway during anesthetic. May be some epiglottis edema.
[2018-06-09] MEDS: Insulin Aspart 300 UNITS/3 ML PEN SC ×2 (17:33→23:57)
[2018-06-09] MEDS: Enoxaparin 40 MG/0.4 ML SYR SC (21:15)
[2018-06-10] VITALS (131 sets, daily range): BP systolic 114–144; BP diastolic 72–90; PULSE 63–97; RESP 15–32; TEMP 36–37.2; O2SAT 86–97
[2018-06-10] MEDS: Normal Saline 1,000 ML 150 ML IV ×3 (00:53→16:57)
[2018-06-10] MEDS: ACETAMINOPHEN 1,000 MG/100 ML BTL 400 MG IVPB ×3 (01:56→17:52)
[2018-06-10] MEDS: Insulin Aspart 300 UNITS/3 ML PEN SC (06:20)
[2018-06-10] MEDS: Normal Saline Flush 10 ML SYR IVP ×2 (08:30→11:46)
--- NOTE | 2018-06-10 09:15 | OT.INIE ---
Occupational Therapy Notes Inpatient Occupational Therapy Evaluation Date: 06/10/18 Referring Doctor:MIGUEL Cast OT Orders: Please evaluate and treat for deconditioning Precautions: NPO PATIENT PROFILE/ADMITTING DIAGNOSIS: Pt is a 42 year old male who was seen at [facility] on 05/29/18 for a bowel obstruction. On 06/04/18 he had surgery performed for a colonic obstruction secondary to diverticulitis. On 06/08/18 he returned to the OR for a leak from his anastamosis and a exploratory laparotomy was performed by Dr. Gibbons. Pt is currently in the ICU and was seen for OT consult today for evaluation and treatment for deconditioning. Past Medical History: Diverticulitis, sleep apnea, (L) knee surgery, colonic bowel obstruction Current Functional Limitations: Decreased functional activity tolerance, decreased (B) UE strength, decreased (B) UE ROM, decreased (I) in ADLs/IADLs. Social History/Home Situation: Pt lives in a private home in [place] with his and four children. 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 He reports that he has 2 flights of stairs in his home and has (B) railings. The bedrooms in his home are on the second floor and he has bathrooms on both the first and second floor which are tub/combo with secured shower heads. He reports that his baseline (I) in ADLs/IADLs and functional activities is (I) with no modifications or assistance. Equipment owned/DME: None mentioned during OT consult. SUBJECTIVE: Pt was still in bed when OT arrived. He reports that he is in a constant 5/10 pain and is having a rough morning. He pushes his button for medication when OT arrives and then reports that his chest is burning. Nursing was notified and nursing reports that he is able to continue with session. Pt is agreeable to OT consult today. OBJECTIVE: General Observation: BP cuff (L) UE, telemetry, IV (R) UE Mental Status: A&Ox3 Pain: Pt reports this as a constant 5/10 pain and an 8/10 pain today. ROM: RUE AROM pt able to achieve 130* with eyes closed as pt reports his pain is significant. L UE AROM pt able to achieve 130* with eyes closed as pt reports his pain is significant. STRENGTH: RUE Shoulder flexion 3+/5, bicep 4/5, leach cell operator 4/5 LUE Shoulder flexion 4/5, bicep 4/5, leach cell operator 4/5 SENSATION: Pt intact to light touch and sensation through (B) UE. FUNCTIONAL MOBILITY/ADLS: BATHING Pt unable to perform due to pain. Bathing UE functionally able to perform dynamic reaching to (B) shoulders, face, and (B) UE Bathing LE NT today due to pain, pt was able to touch upper thighs in resting position. DRESSING NT today due to pts pain. Dressing UE Pts functional dynamic ROM demonstrates increased (I) in donning UE EATING NPO at this time per MD orders. BALANCE: Static sitting Normal Dynamic Sitting Good SPECIAL TESTS: Daily Activity Limitations Standardized Measure [facility] AM -PAC ?6 clicks? Daily Activity Inpatient Short Form: Raw score: 20 Standardized score: 42.03 CMS score: 38.32% CMS modifier: CJ INFORMED CONSENT/EDUCATION: Pt instructed in purpose of OT Consult and plan of care. ASSESSMENT: Patient is a 42-year-old male referred to occupational therapy services with diagnosis of a leak from his anastamosis and a exploratory laparotomy performed on 06/08/18 in setting of Diverticulitis, sleep apnea, (L) knee surgery, colonic bowel obstruction, pt was admitted to [facility] prior to this. Patient presents with clinical signs and symptoms consistent with decreased functional activity tolerance, decreased (B) UE strength, decreased (B) UE ROM, decreased (I) in ADLs/IADLs. AMPAC score 20, CMS 38.32%. Patient is assessed as a Moderate [id number] complexity based on the following: History: See Above Examination: See Above Presentation: Evolving Decision Making: AMPAC score 20, CMS 38.32%. GOALS Goals x1 week 1. Dressing- Pt will be able to (I) perform UE/LE dressing in hospital setting sitting on the edge of his bed. 2. Bathing- Pt will be able to (I) perform bathing routine in hospital setting. 3. Eating- Pt will be able to eat (I) with cutting food and bring food to his mouth in hospital setting. 4. Pt will be (I) with UE strengthening program to facilitate increased (I) in ADL/IADL routines. PLAN OF CARE/TREATMENT PLAN: 1x/day, 5 days/ week x 1week Initiate Occupational Therapy Services for bathing, dressing, grooming, toileting, eating, transfer training. DISCHARGE RECOMMENDATIONS TREATMENT TIME/MINUTES/CODES 25 min IE G Codes in the area of self- : washing oneself, toileting, dressing, eating and drinking, current status GO [id number] CJ projected status GO [id number]. Discharge status (if discharging) GO [id number]. Based on AMPAC score 20, CMS score 38.32%. Cora Lees OTR/L
--- NOTE | 2018-06-10 09:34 | OTIE_ITS ---
Occupational Therapy Notes Inpatient Occupational Therapy Evaluation Date: 06/10/18 Referring Doctor:MIGUEL Cast OT Orders: Please evaluate and treat for deconditioning Precautions: NPO PATIENT PROFILE/ADMITTING DIAGNOSIS: Pt is a 42 year old male who was seen at [facility] on 05/29/18 for a bowel obstruction. On 06/04/18 he had surgery performed for a colonic obstruction secondary to diverticulitis. On 06/08/18 he returned to the OR for a leak from his anastamosis and a exploratory laparotomy was performed by Dr. Gibbons. Pt is currently in the ICU and was seen for OT consult today for evaluation and treatment for deconditioning. Past Medical History: Diverticulitis, sleep apnea, (L) knee surgery, colonic bowel obstruction Current Functional Limitations: Decreased functional activity tolerance, decreased (B) UE strength, decreased (B) UE ROM, decreased (I) in ADLs/IADLs. Social History/Home Situation: Pt lives in a private home in [place] with his and four children. 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 He reports that he has 2 flights of stairs in his home and has (B) railings. The bedrooms in his home are on the second floor and he has bathrooms on both the first and second floor which are tub/combo with secured shower heads. He reports that his baseline (I) in ADLs/IADLs and functional activities is (I) with no modifications or assistance. Equipment owned/DME: None mentioned during OT consult. SUBJECTIVE: Pt was still in bed when OT arrived. He reports that he is in a constant 5/10 pain and is having a rough morning. He pushes his button for medication when OT arrives and then reports that his chest is burning. Nursing was notified and nursing reports that he is able to continue with session. Pt is agreeable to OT consult today. OBJECTIVE: General Observation: BP cuff (L) UE, telemetry, IV (R) UE Mental Status: A&Ox3 Pain: Pt reports this as a constant 5/10 pain and an 8/10 pain today. ROM: RUE AROM pt able to achieve 130* with eyes closed as pt reports his pain is significant. L UE AROM pt able to achieve 130* with eyes closed as pt reports his pain is significant. STRENGTH: RUE Shoulder flexion 3+/5, bicep 4/5, occupational therapy manager 4/5 LUE Shoulder flexion 4/5, bicep 4/5, occupational therapy manager 4/5 SENSATION: Pt intact to light touch and sensation through (B) UE. FUNCTIONAL MOBILITY/ADLS: BATHING Pt unable to perform due to pain. Bathing UE functionally able to perform dynamic reaching to (B) shoulders, face, and (B) UE Bathing LE NT today due to pain, pt was able to touch upper thighs in resting position. DRESSING NT today due to pts pain. Dressing UE Pts functional dynamic ROM demonstrates increased (I) in donning UE EATING NPO at this time per MD orders. BALANCE: Static sitting Normal Dynamic Sitting Good SPECIAL TESTS: Daily Activity Limitations Standardized Measure [facility] AM -PAC ?6 clicks? Daily Activity Inpatient Short Form: Raw score: 20 Standardized score: 42.03 CMS score: 38.32% CMS modifier: CJ INFORMED CONSENT/EDUCATION: Pt instructed in purpose of OT Consult and plan of care. ASSESSMENT: Patient is a 42-year-old male referred to occupational therapy services with diagnosis of a leak from his anastamosis and a exploratory laparotomy performed on 06/08/18 in setting of Diverticulitis, sleep apnea, (L) knee surgery, colonic bowel obstruction, pt was admitted to [facility] prior to this. Patient presents with clinical signs and symptoms consistent with decreased functional activity tolerance, decreased (B) UE strength, decreased (B) UE ROM, decreased (I) in ADLs/IADLs. AMPAC score 20, CMS 38.32%. Patient is assessed as a Moderate [id number] complexity based on the following: History: See Above Examination: See Above Presentation: Evolving Decision Making: AMPAC score 20, CMS 38.32%. GOALS Goals x1 week 1. Dressing- Pt will be able to (I) perform UE/LE dressing in hospital setting sitting on the edge of his bed. 2. Bathing- Pt will be able to (I) perform bathing routine in hospital setting. 3. Eating- Pt will be able to eat (I) with cutting food and bring food to his mouth in hospital setting. 4. Pt will be (I) with UE strengthening program to facilitate increased (I) in ADL/IADL routines. PLAN OF CARE/TREATMENT PLAN: 1x/day, 5 days/ week x 1week Initiate Occupational Therapy Services for bathing, dressing, grooming, toileting, eating, transfer training. DISCHARGE RECOMMENDATIONS TREATMENT TIME/MINUTES/CODES 25 min IE G Codes in the area of self- : washing oneself, toileting, dressing, eating and drinking, current status GO [id number] CJ projected status GO [id number]. Discharge status (if discharging) GO [id number]. Based on AMPAC score 20, CMS score 38.32%. Cora Lees OTR/L
--- NOTE | 2018-06-10 10:01 | PDOC.CMPRO ---
- If Service Date Differs Date of service: 06/10/18 Time of Service: 10:01 Care Management Progress Note S/O: Hector is lying in bed in the ICU when CM visits this morning. He is engaged in conversation, makes good eye contact, and is talkative. Hector reports that his abdominal pain fluctuates between a 5 and 8/10. He has a fentanyl epidural WASHTUB WORKER HELPER which he utilizes appropriately. Hector is receiving TPN for nutrition, is receiving supplemental O2 via NC, is getting NS, IV antibiotics, and IV pain/antiemetic medications PRN. Hector had an OT consult this morning and was reportedly up to his chair with standby assistance and a walker. Hector remains in better spirits today in comparison with yesterday, and reports that if I don't laugh I will cry. A: 42 year old male admitted with a colon stricture. P: Hector will discharge home when medically ready per MD. Anticipate patient will discharge home with no services and follow up with surgical services. Hector will transport via private vehicle with his , Keli. CM will continue to offer support to patient, family, and care team regarding discharge planning and disposition.
--- NOTE | 2018-06-10 10:07 | CMPROGNOTE_ITS ---
- If Service Date Differs Date of service: 06/10/18 Time of Service: 10:01 Care Management Progress Note S/O: Hector is lying in bed in the ICU when CM visits this morning. He is engaged in conversation, makes good eye contact, and is talkative. Hector reports that his abdominal pain fluctuates between a 5 and 8/10. He has a fentanyl epidural COAL PULVERIZING OPERATOR which he utilizes appropriately. Hector is receiving TPN for nutrition, is receiving supplemental O2 via NC, is getting NS, IV antibiotics, and IV pain/antiemetic medications PRN. Hector had an OT consult this morning and was reportedly up to his chair with standby assistance and a walker. Hector remains in better spirits today in comparison with yesterday, and reports that if I don't laugh I will cry. A: 42 year old male admitted with a colon stricture. P: Hector will discharge home when medically ready per MD. Anticipate patient will discharge home with no services and follow up with surgical services. Hector will transport via private vehicle with his , Keli. CM will continue to offer support to patient, family, and care team regarding discharge planning and disposition.
--- NOTE | 2018-06-10 10:13 | PT.INIE ---
Date of service: 06/10/18 Time of Service: 10:13 PT Notes Inpatient Physical Therapy Evaluation Date: 06/10/2018 Referring Doctor: Razia RIVERA PT Orders: PT CONSULT: Please evaluate and treat for deconditioning Precautions: Standard Patient Profile/Admitting Diagnosis: Patient is a 42-year-old male status post laparoscopic hand-assisted sigmoid colectomy and takedown of splenic flexure 06/04/2018, status post exploratory laparotomy with repair of anastomic leak and diverting ileostomy 06/08/18 PMHX: Diverticulitis, bowel obstruction, sleep apnea Social History/Home Situation: Lives with in a house, plans to take back entrance into house which involves 14 steps with railing, 14 steps with railing to upstairs bedrooms. Baseline mobility independent gait without assistive device and independent with ADLs. 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 Equipment Owned/DME: None Subjective: Patient lying in bed reporting pain and swelling in abdomen, reluctantly agreeable to PT consult. RN in room encouraging patient to utilize MILLER HELPER DISTILLERY for pain control. Objective: General Observation: MILLER HELPER DISTILLERY, IV, Donis catheter, telemetry, 2 L O2 nasal cannula Mental Status: A and O x3 Pain: c/o pain in abdomen with functional movement, not rated, using MILLER HELPER DISTILLERY for pain control. Bed Mobility/Transfers: Supine to sit HOB 40 degrees, patient instructed in use of right railing to transition to sitting position utilizing log rolling for upper body, patient able to get legs off edge of bed without assistance. Patient moving very slowly requiring increased time to complete supine to sitting transfer and step by step cues for hand and leg positioning to reduce use of abdominal muscles in order to reduce pain. Sit to stand: Bariatric front wheel walker SBA Bed to chair: Bariatric FWW SBA Stand to sit: SBA, cues for hand placement to chair Gait: Bariatric FWW, SBA, 25ft x2. Patient with wide stance due to scrotal edema and discomfort, slow step to gait pattern, decreased peggy. Required frequent rest breaks due to pain and weakness. Able to walk to doorway of room and back to chair, patient positioned up in chair after session completed. Discussion with patient regarding plan of care, plan will be progressive gait training increasing distance daily in order to increase functional mobility and strength, patient in agreement. Therex: Initiated ankle pumps x20 bilaterally, long arc quad bilaterally. We will progress therex patient is able. Balance: Static Sitting: Normal Dynamic Sitting: Normal Static Standing: Fair Dynamic Standing: Fair Special Tests: Mobility Limitations Standardized Measure [facility] AM-PAC 6 clicks Basic Mobility Inpatient Short Form: Raw Score: 18 standardized Score: 43.63 CMS Score: 46.58% CMS Modifier: CK Informed Consent/Education: Patient instructed in purpose of PT consult and plan of care. Assessment: Patient is a 42-year-old male status post laparoscopic hand-assisted sigmoid colectomy and takedown of splenic flexure 06/04/2018, status post exploratory laparotomy with repair of anastomic leak and diverting ileostomy 06/08/18 in setting of Diverticulitis, bowel obstruction, sleep apnea. Patient presents with the following impairment level findings: Pain in abdominal region postoperatively limiting functional mobility, edema in abdomen/surgical/scrotal region making movements painful, decreased strength with bed mobility, and gait mobility requiring FWW for stability due to lower extremity weakness, decreased static and dynamic standing balance. Patient requiring increased time to complete all transfers and functional mobility and step by step to for safe positioning due to above limitations. Patient will benefit from skilled therapy intervention for strengthening and progressive mobility training, patient was independent and active at baseline, anticipate he will be able to return to prior level of function with physical therapy intervention during postoperative recovery. May require FWW initially at discharge for gait stability will determine closer to discharge. Impairments are contributing to the following functional limitations: AMPAC score CMS Score: 46.58% Patient is assessed as a High 82091 complexity based on the following: History: See above Examination: See above Presentation: Evolving Decision Making: AMPAC score CMS Score: 46.58% Goals: Goals X1 week 1. Supine-Sit: HOB 30, independent 2. Sit-Supine: HOB flat, independent 3. Sit-Stand: Independent 4. Stand-Sit: Independent 5. Bed-Chair: Supervision with FWW 6. Chair-Bed: Supervision with FWW 7. Gait: Supervision with FWW 200 feet 8. Stairs up/down 14 steps with railing, SBA 9. Independent with home exercise program for lower extremity strengthening Plan of Care/Treatment Plan: 1-2x/day, 7 days/week x 1 week. Plan of care has been reviewed with the OUTSIDE RESIDENTIAL SALES PROFESSIONAL providing the service under Physical Therapy direction. Initiate Physical Therapy intervention for strengthening, bed mobility, transfers, gait, stairs, balance training, use of assistive device. DISCHARGE RECOMMENDATIONS: Home with FWW TREATMENT CODE/TIME: 32 minutes 10:10 AM, IE G Codes in the area mobility of walking and moving around: current status [id number] -[id number] ; projected status GP [id number]. Discharge status (if discharging) GP G8980 - CK based on AMPA score CMS Score: 46.58% Elsa Barboza PT Disclaimer: This note was created using [employer] voice recognition software. It was reviewed for major content. However, there may be multiple small discrepancies and errors due to the voice recognition aspects of the software.
--- NOTE | 2018-06-10 10:32 | IN_ITS ---
Date of service: 06/10/18 Time of Service: 10:13 PT Notes Inpatient Physical Therapy Evaluation Date: 06/10/2018 Referring Doctor: Razia RIVERA PT Orders: PT CONSULT: Please evaluate and treat for deconditioning Precautions: Standard Patient Profile/Admitting Diagnosis: Patient is a 42-year-old male status post laparoscopic hand-assisted sigmoid colectomy and takedown of splenic flexure 06/04/2018, status post exploratory laparotomy with repair of anastomic leak and diverting ileostomy 06/08/18 PMHX: Diverticulitis, bowel obstruction, sleep apnea Social History/Home Situation: Lives with in a house, plans to take back entrance into house which involves 14 steps with railing, 14 steps with railing to upstairs bedrooms. Baseline mobility independent gait without assistive device and independent with ADLs. 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 Equipment Owned/DME: None Subjective: Patient lying in bed reporting pain and swelling in abdomen, reluctantly agreeable to PT consult. RN in room encouraging patient to utilize DIRECTOR OF VOCATIONAL TRAINING for pain control. Objective: General Observation: DIRECTOR OF VOCATIONAL TRAINING, IV, Donis catheter, telemetry, 2 L O2 nasal cannula Mental Status: A and O x3 Pain: c/o pain in abdomen with functional movement, not rated, using DIRECTOR OF VOCATIONAL TRAINING for pain control. Bed Mobility/Transfers: Supine to sit HOB 40 degrees, patient instructed in use of right railing to transition to sitting position utilizing log rolling for upper body, patient able to get legs off edge of bed without assistance. Patient moving very slowly requiring increased time to complete supine to sitting transfer and step by step cues for hand and leg positioning to reduce use of abdominal muscles in order to reduce pain. Sit to stand: Bariatric front wheel walker SBA Bed to chair: Bariatric FWW SBA Stand to sit: SBA, cues for hand placement to chair Gait: Bariatric FWW, SBA, 25ft x2. Patient with wide stance due to scrotal felice a and discomfort, slow step to gait pattern, decreased peggy. Required frequent rest breaks due to pain and weakness. Able to walk to doorway of room and back to chair, patient positioned up in chair after session completed. Discussion with patient regarding plan of care, plan will be progressive gait training increasing distance daily in order to increase functional mobility and strength, patient in agreement. Therex: Initiated ankle pumps x20 bilaterally, long arc quad bilaterally. We will progress therex patient is able. Balance: Static Sitting: Normal Dynamic Sitting: Normal Static Standing: Fair Dynamic Standing: Fair Special Tests: Mobility Limitations Standardized Measure [facility] AM-PAC 6 clicks Basic Mobility Inpatient Short Form: Raw Score: 18 standardized Score: 43.63 CMS Score: 46.58% CMS Modifier: CK Informed Consent/Education: Patient instructed in purpose of PT consult and plan of care. Assessment: Patient is a 42-year-old male status post laparoscopic hand- assisted sigmoid colectomy and takedown of splenic flexure 06/04/2018, status post exploratory laparotomy with repair of anastomic leak and diverting ileostomy 06/08/18 in setting of Diverticulitis, bowel obstruction, sleep apnea. Patient presents with the following impairment level findings: Pain in abdominal region postoperatively limiting functional mobility, edema in abdomen/surgical/scrotal region making movements painful, decreased strength with bed mobility, and gait mobility requiring FWW for stability due to lower extremity weakness, decreased static and dynamic standing balance. Patient requiring increased time to complete all transfers and functional mobility and step by step to for safe positioning due to above limitations. Patient will benefit from skilled therapy intervention for strengthening and progressive mobility training, patient was independent and active at baseline, anticipate he will be able to return to prior level of function with physical therapy intervention during postoperative recovery. May require FWW initially at discharge for gait stability will determine closer to discharge. Impairments are contributing to the following functional limitations: AMPAC score CMS Score: 46.58% Patient is assessed as a High 04760 complexity based on the following: History: See above Examination: See above Presentation: Evolving Decision Making: AMPAC score CMS Score: 46.58% Goals: Goals X1 week 1. Supine-Sit: HOB 30, independent 2. Sit-Supine: HOB flat, independent 3. Sit-Stand: Independent 4. Stand-Sit: Independent 5. Bed-Chair: Supervision with FWW 6. Chair-Bed: Supervision with FWW 7. Gait: Supervision with FWW 200 feet 8. Stairs up/down 14 steps with railing, SBA 9. Independent with home exercise program for lower extremity strengthening Plan of Care/Treatment Plan: 1-2x/day, 7 days/week x 1 week. Plan of care has been reviewed with the HOSPITAL CLERK providing the service under Physical Therapy direction. Initiate Physical Therapy intervention for strengthening, bed mobility, transfers, gait, stairs, balance training, use of assistive device. DISCHARGE RECOMMENDATIONS: Home with FWW TREATMENT CODE/TIME: 32 minutes 10:10 AM, IE G Codes in the area mobility of walking and moving around: current status [id number] -CK ; projected status GP [id number]. Discharge status (if discharging) GP G8980 - CK based on [facility] score CMS Score: 46.58% Elsa Barboza PT Disclaimer: This note was created using [employer] voice recognition software. It was reviewed for major content. However, there may be multiple small discrepancies and errors due to the voice recognition aspects of the software.
--- NOTE | 2018-06-10 10:35 | CHAPLAIN ---
Hector was sitting up in his chair when I visited. When I introduced myself, Hector said he was not interested in a conversation because he had a bad experience with the restorationism. I assured him that I didn't represent a particular restorationism. He has been hospitalized longer than he expected, and was up and walking around earlier in the week, he said, and then had to go back to the OR on Saturday, and I woke up here, he said of being in the ICU. He is discouraged about his progress. He expects his and children may visit later today.
--- NOTE | 2018-06-10 11:44 | PGE_ITS ---
Date of Service Date of service: 06/10/18 Time of Service: 07:00 Assessment and Plan (1) Anastomotic leak of intestine: Current visit: Yes Status: Acute POD #5- s/p sigmoid resection for stricture POD#2 s/p ex-lap for anastamotic leak with resection, re-anastamosis and loop ileostomy creation P\\1. Diet: Continue NPO. 2. Nutrition: Started TPN, tolerating well. 3. Leukocytosis - on Antibiotics. Labs for today are pending. Continue antibiotics 4. Activity: start to increase activity as tolerated. Ordered PT and OT today. 5. Pain: doing well with epidural. Continue per Anesthesia 6. DVT prophilaxis: Continue with Lovenox 7. Ulcer prophilaxis: continue with BID H2 mireya 8. Stop NS. Continue LR (2) Sore throat: Current visit: Yes Status: Acute Improved. Tolerating ice chips. Subjective Patient reports: no flatus, afebrile and fever; denies nausea and vomiting Interval history since last seen: Mr. Farfan reports that he feels like he has no energy and that tasks that require even just use of his hands are challenging and exhausting. He reports that he got out of bed several times yesterday and that mobility in and out of bed increases his pain levels. He denies nausea and vomiting at this time. Abdomen is painful and he his pain increases significantly with palpation. He is afebrile over night. He was started on TPN yesterday. He denies feeling SOB, however [facility] [place] report diminished lung sounds. Exam Const General: cooperative and acute distress mild Orientation: alert and oriented x3 GI Inspection: incision (Dressing in place. No erythema or swelling. ) Palpation: soft and guarding Objective Objective Clinical Data: Abnormal lab results 06/09/18 Range/Units 14:26 BUN 23 H (7-18) mg/dL Glucose 124 H (70-100) mg/dL Vital Signs Temperature 36.1 C L 06/10/18 10:41 Temperature Source Temporal Artery Scan 06/10/18 08:43 Pulse 79 06/10/18 10:30 Pulse Rhythm Regular 06/08/18 09:45 Pulse 79 06/10/18 10:26 Respiratory Rate 21 06/10/18 10:30 Respiratory Effort Non-Labored 06/10/18 08:43 Respiratory Depth Shallow 06/10/18 08:43 Respiratory Pattern Normal 06/10/18 08:43 Blood Pressure 133/90 06/10/18 10:30 Blood Pressure Mean 97 06/10/18 10:26 Blood Pressure Position Supine 06/10/18 04:05 Pulse Oximetry 95 06/10/18 10:30 Respiratory End-tidal CO2 30 06/09/18 02:01 Oxygen Delivery Method Nasal Cannula 06/10/18 10:30 Oxygen Flow Rate 2 06/10/18 10:30 Pain Level 6 06/10/18 10:41 Comment 06/08/18 10:24 Intake & Output 06/09/18 06/09/18 06/10/18 11:59 23:59 11:59 Intake Total 2470 / 3690 1220 / 3690 2141 / 2141 Output Total 700 / 1495 795 / 1495 600 / 600 Balance 1770 / 2195 425 / 2195 1541 / 1541 Weight 112.3 kg 116.2 kg Intake: IV 2470 / 3620 1150 / 3620 2141 / 2141 Injectate 70 / 70 Left Lower Distal Abdomen 70 / 70 Output: Drainage 200 / 200 Left Lower Distal Abdomen 200 / 200 Urine 400 / 1050 650 / 1050 600 / 600 Stool 100 / 245 145 / 245 Other: Urine Color Light Radha Dark Radha Light Radha Rondo Jackson Urine Appearance Cloudy Clear Cloudy Purulent Cloudy Sediment Comment Donis in place draining dark yellow pink tinged urine Donis in place draining radha urine Donis in place Stool Characteristics Liquid Brown Green Laboratory Results WBC 7.39 k/cumm (4.4-10.8) D 06/09/18 06:15 RBC 3.89 m/cumm (4.50-6.00) L 06/09/18 06:15 Hgb 11.2 g/dL (13.5-17.5) L 06/09/18 06:15 Hct 33.7 % (40.0-50.0) L 06/09/18 06:15 MCV 86.6 fL (80-95) 06/09/18 06:15 MCH 28.8 pg (27.0-33.0) 06/09/18 06:15 MCHC 33.2 g/dL (32.0-36.0) 06/09/18 06:15 RDW 15.1 % (11.8-14.1) H 06/09/18 06:15 Plt Count 214 x1000/uL (130-400) 06/09/18 06:15 MPV 9.9 fL (8.0-11.0) 06/09/18 06:15 Immature Gran % See Differential 06/09/18 06:15 Neutrophils % 38.0 06/09/18 06:15 Lymphocytes % 4.0 06/09/18 06:15 Monocytes % 7.0 06/09/18 06:15 Eosinophils % 0.0 06/09/18 06:15 Basophils % 0.0 06/09/18 06:15 Absolute Neutrophils 6.13 k/cumm (1.2-6.7) 06/09/18 06:15 Band Neutrophils 45.0 % 06/09/18 06:15 Absolute Lymphocytes 0.30 k/cumm (1.2-3.4) L 06/09/18 06:15 Absolute Monocytes 0.52 k/cumm (0.11-0.7) 06/09/18 06:15 Absolute Eosinophils 0.00 k/cumm (0.0-0.7) 06/09/18 06:15 Absolute Basophils 0.00 k/cumm (0.0-0.2) 06/09/18 06:15 Metamyelocytes 4.0 % 06/09/18 06:15 Myelocytes 2.0 % 06/09/18 06:15 Differential Comment Manual differential 06/09/18 06:15 RBC Morphology See below 06/09/18 06:15 Polychromasia Present 06/09/18 06:15 Anisocytosis 1+ 06/09/18 06:15 [place] Cells 2+ 06/09/18 06:15 ESR 81 MM/HR (0-15) H 06/09/18 06:15 Sodium 143 mmol/L (136-145) 06/09/18 14:26 Potassium 4.6 mmol/L (3.5-5.1) 06/09/18 14:26 Chloride 107 mmol/L (98-107) 06/09/18 14:26 Carbon Dioxide 27.5 mmol/L (21.0-32.0) 06/09/18 14:26 Anion Gap 8.5 mmol/L (3-11) 06/09/18 14:26 BUN 23 mg/dL (7-18) H 06/09/18 14:26 Creatinine 0.94 mg/dL (0.70-1.30) 06/09/18 14:26 Estimated GFR/1.73 m2 >= 60.00 (mL/min/1.73m2) 06/09/18 14:26 Glucose 124 mg/dL (70-100) H 06/09/18 14:26 Calcium 8.6 mg/dL (8.5-10.1) 06/09/18 14:26 Magnesium 2.3 mg/dL (1.8-2.4) 06/09/18 14:26 Total Bilirubin 0.5 mg/dL (0.2-1.0) 06/09/18 06:15 AST 35 U/L (15-37) 06/09/18 06:15 ALT 21 U/L (12-78) 06/09/18 06:15 Alkaline Phosphatase 33 U/L (46-116) L 06/09/18 06:15 Creatine Kinase 149 U/L (39-308) 06/09/18 00:45 C-Reactive Protein > 25.00 mg/dL (0.0-0.3) H 06/09/18 06:15 Total Protein 4.9 g/dL (6.4-8.2) L 06/09/18 06:15 Albumin 1.3 g/dL (3.4-5.0) L 06/09/18 06:15
[2018-06-10 12:22] LABS: ALT 30 U/L (12-78); AST 68 U/L (15-37); Albumin 1.4 g/dL (3.4-5.0); Alkaline Phosphatase 52 U/L (46-116); Anion Gap 5.7 mmol/L (3-11); BUN 25 mg/dL (7-18); Bilirubin, Direct 0.39 mg/dL (0.00-0.20); Bilirubin, Total 0.6 mg/dL (0.2-1.0); CO2 30.3 mmol/L (21.0-32.0); CREATININE 0.78 mg/dL (0.70-1.30); Calcium 8.5 mg/dL (8.5-10.1); Chloride 106 mmol/L (98-107); Glucose 159 mg/dL (70-100); Sodium 142 mmol/L (136-145); Total Protein 5.4 g/dL (6.4-8.2)
[2018-06-10 13:41] LABS: HCT 29.4 % (40.0-50.0); HGB 9.7 g/dL (13.5-17.5); Mean Corpuscular Volume 87.8 fL (80-95); Mean Platelet Volume 9.9 fL (8.0-11.0); Platelet Count 216 x1000/uL (130-400); RBC 3.35 m/cumm (4.50-6.00); RBC Distribution Width 15.5 % (11.8-14.1); White Blood Cell Count 13.46 k/cumm (4.4-10.8)
[2018-06-10 13:58] LABS: Absolute Eosinophil Count 0.13 k/cumm (0.0-0.7); Absolute Monocyte Count 1.21 k/cumm (0.11-0.7); Absolute Neutrophil Count 11.04 k/cumm (1.2-6.7); Burr Cells (echinocyte) 2+; Diff Comment Manual Differential
--- NOTE | 2018-06-10 14:37 | PDOC.ANES ---
Date of service: 06/10/18 Time of Service: 14:37 Anesthesia Note Report Anesthesia Note: Patient has epidural infusion running at 12 mL/hr. Patient has been up to chair with physical therapy and has good motor strength in his legs. Reports some discomfort with movement, but comfortable in chair. Discussed patient with surgical team, plan to leave epidural infusion running at current rate.
--- NOTE | 2018-06-10 14:56 | PT.INTREAT ---
Date of service: 06/10/18 Time of Service: 14:56 PT Notes Inpatient Physical Therapy Treatment Note Date: 06/10/18 PRECAUTIONS: pre-medicate for pain prior to therapy session SUBJECTIVE: Pt lying in bed, states he was up in the chair for 1.5hrs this morning. Agreeable to therapy session. Reports his goal is to return home by Magnus. 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 Pt requires increased time to complete transfer due to pain. Sit-supine: HOB flat, independent Sit-stand: SBA with bariatric FWW Stand-sit: supervision GAIT Assistive Device: bariatric FWW Assist: SBA Distance: 30ftx2- progressed to hallway out of room and turned outside room to return to bed Deviation: wide base of support due to scrotal edema, slow step to gait pattern. ASSESSMENT: Improved strength with transfers this afternoon, increased gait distance to hallway, motivation and participation good this afternoon, pt wants to return home by Magnus. Will continue progressive strengthening and mobility training increasing distance each day. PLAN: Progress strengthening Progress gait training TREATMENT CODE/TIME: 24min TAx2 [id number] Elsa Barboza PT
--- NOTE | 2018-06-10 15:03 | PTTR_ITS ---
Date of service: 06/10/18 Time of Service: 14:56 PT Notes Inpatient Physical Therapy Treatment Note Date: 06/10/18 PRECAUTIONS: pre-medicate for pain prior to therapy session SUBJECTIVE: Pt lying in bed, states he was up in the chair for 1.5hrs this morning. Agreeable to therapy session. Reports his goal is to return home by Magn[facility]. 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 Pt requires increased time to complete transfer due to pain. Sit-supine: HOB flat, independent Sit-stand: SBA with bariatric FWW Stand-sit: supervision GAIT Assistive Device: bariatric FWW Assist: SBA Distance: 30ftx2- progressed to hallway out of room and turned outside room to return to bed Deviation: wide base of support due to scrotal edema, slow step to gait pattern. ASSESSMENT: Improved strength with transfers this afternoon, increased gait distance to hallway, motivation and participation good this afternoon, pt wants to return home by Magnus. Will continue progressive strengthening and mobility training increasing distance each day. PLAN: Progress strengthening Progress gait training TREATMENT CODE/TIME: 24min TAx2 [id number] Elsa Barboza PT
[2018-06-10] MEDS: Enoxaparin 40 MG/0.4 ML SYR SC (21:18)
[2018-06-11] VITALS (33 sets, daily range): BP systolic 125–161; BP diastolic 66–86; PULSE 73–108; RESP 19–28; TEMP 35.3–37.2; O2SAT 87–98
[2018-06-11] MEDS: Normal Saline 1,000 ML 150 ML IV ×3 (00:18→14:51)
[2018-06-11] MEDS: Normal Saline Flush 10 ML SYR IVP ×2 (03:02→04:43)
[2018-06-11] MEDS: ACETAMINOPHEN 1,000 MG/100 ML BTL 400 MG IVPB ×3 (03:02→18:45)
--- NOTE | 2018-06-11 03:24 | W.PM.PROGNOT ---
Date of Service Date of service: 06/11/18 Time of Service: 03:43 Assessment and Plan (1) Postoperative ileus: Start date: 06/11/18 Start time: 03:38 Current visit: Yes Status: Acute will get abd xray drop NGT (2) Abdominal distension: Start date: 06/11/18 Start time: 03:39 Current visit: Yes Status: Acute postop ileus, abd xray, will drop an NGT (3) Fluid overload: Start date: 06/11/18 Start time: 03:39 Current visit: Yes Status: Acute will give 20 lasix (4) Nausea: Start date: 06/11/18 Start time: 03:39 Current visit: Yes Status: Acute additional zantac Subjective Patient reports: still having pain, no flatus and nausea Interval history since last seen: abd more distended, nurse called due to this finding Exam Resp Other: pt is on bipap currently this may be pushing extra air into his stomach, an ngt may help for this GI Inspection: distended and incision Palpation: tender Percussion: tympanic to percussion Auscultation: hypoactive bowel sounds Other: abd is distended and he has tenderness to percusion he does not have an acute abdomen on exam but I have a concern for anastomotic complications a postop ileus could explain his current condition as well with minimal output from the iliostomy 100cc in the last 12+hours he has not had any gas from below he is currenlty >5liters + and will try a dose of lasix for his fluid overload a flat plat and upright was ordered to see bowel distenttion vs free air his vs currently are stable and is not asking nor requiring any additional pain meds Objective Objective Clinical Data: Abnormal lab results 06/10/18 06/10/18 Range/Units 11:50 13:20 WBC 13.46 H (4.4-10.8) k/cumm RBC 3.35 L (4.50-6.00) m/cumm Hgb 9.7 L (13.5-17.5) g/dL Hct 29.4 L (40.0-50.0) % RDW 15.5 H (11.8-14.1) % Absolute Neutrophils 11.04 H (1.2-6.7) k/cumm Absolute Lymphocytes 0.40 L (1.2-3.4) k/cumm Absolute Monocytes 1.21 H (0.11-0.7) k/cumm BUN 25 H (7-18) mg/dL Glucose 159 H (70-100) mg/dL Conjugated Bilirubin 0.39 H (0.00-0.20) mg/dL AST 68 H (15-37) U/L Total Protein 5.4 L (6.4-8.2) g/dL Albumin 1.4 L (3.4-5.0) g/dL Vital Signs Temperature 37.2 C 06/11/18 00:05 Temperature Source Tympanic 06/10/18 20:50 Pulse 79 06/10/18 22:01 Pulse Rhythm Regular 06/08/18 09:45 Pulse 88 06/10/18 22:20 Respiratory Rate 18 06/10/18 22:20 Respiratory Effort Non-Labored 06/11/18 00:05 Respiratory Depth Normal 06/11/18 00:05 Respiratory Pattern Normal 06/11/18 00:05 Blood Pressure 144/74 H 06/10/18 22:01 Blood Pressure Mean 89 06/10/18 22:01 Blood Pressure Position Supine 06/11/18 00:05 Pulse Oximetry 93 L 06/10/18 22:20 Respiratory End-tidal CO2 30 06/09/18 02:01 Oxygen Delivery Method Nasal Cannula 06/11/18 00:05 Oxygen Flow Rate 1.5 06/11/18 00:05 Fraction of Inspired Oxygen (FIO2) 21 06/10/18 14:00 Pain Level 5 06/11/18 00:05 Comment 06/08/18 10:24 Intake & Output 06/10/18 06/10/18 06/11/18 11:59 23:59 11:59 Intake Total 2141 / 5701 3560 / 5701 Output Total 600 / 5 1425 / 2025 Balance 1541 / 3676 2135 / 3676 Weight 116.2 kg Intake: IV 2141 / 5651 3510 / 5651 Injectate 50 / 50 Left Lower Distal Abdomen 50 / 50 Output: Drainage 100 / 100 Left Lower Distal Abdomen 100 / 100 Urine 600 / 1700 1100 / 1700 Stool 225 / 225 Other: Urine Color Light Hortensia Dark Hortensia Jackson Urine Appearance Cloudy Clear Sediment Comment Nuñez in place nuñez to gravity Stool Occult Blood Positive Stool Characteristics Brown Green Laboratory Results WBC 13.46 k/cumm (4.4-10.8) H 06/10/18 13:20 RBC 3.35 m/cumm (4.50-6.00) L 06/10/18 13:20 Hgb 9.7 g/dL (13.5-17.5) L 06/10/18 13:20 Hct 29.4 % (40.0-50.0) L 06/10/18 13:20 MCV 87.8 fL (80-95) 06/10/18 13:20 MCH 29.0 pg (27.0-33.0) 06/10/18 13:20 MCHC 33.0 g/dL (32.0-36.0) 06/10/18 13:20 RDW 15.5 % (11.8-14.1) H 06/10/18 13:20 Plt Count 216 x1000/uL (130-400) 06/10/18 13:20 MPV 9.9 fL (8.0-11.0) 06/10/18 13:20 Abs Immat Gran (auto) Cancelled 06/10/18 11:10 Immature Gran % See Differential 06/10/18 13:20 Neutrophils % 72.0 06/10/18 13:20 Lymphocytes % 3.0 06/10/18 13:20 Monocytes % 9.0 06/10/18 13:20 Eosinophils % 1.0 06/10/18 13:20 Basophils % 0.0 06/10/18 13:20 Absolute Neutrophils 11.04 k/cumm (1.2-6.7) H 06/10/18 13:20 Band Neutrophils 10.0 % 06/10/18 13:20 Absolute Lymphocytes 0.40 k/cumm (1.2-3.4) L 06/10/18 13:20 Absolute Monocytes 1.21 k/cumm (0.11-0.7) H 06/10/18 13:20 Absolute Eosinophils 0.13 k/cumm (0.0-0.7) 06/10/18 13:20 Absolute Basophils 0.00 k/cumm (0.0-0.2) 06/10/18 13:20 Metamyelocytes 4.0 % 06/10/18 13:20 Myelocytes 1.0 % 06/10/18 13:20 Promyelocytes Cancelled 06/10/18 11:10 Nucleated RBCs Cancelled 06/10/18 11:10 Differential Comment Manual differential 06/10/18 13:20 Atypical Lymphocytes Cancelled 06/10/18 11:10 Other Cell Type Cancelled 06/10/18 11:10 RBC Morphology See below 06/10/18 13:20 Polychromasia Present 06/09/18 06:15 Hypochromasia Cancelled 06/10/18 11:10 Poikilocytosis Cancelled 06/10/18 11:10 Basophilic Stippling Cancelled 06/10/18 11:10 Anisocytosis 1+ 06/09/18 06:15 Microcytosis Cancelled 06/10/18 11:10 Macrocytosis Cancelled 06/10/18 11:10 Spherocytes Cancelled 06/10/18 11:10 Target Cells Cancelled 06/10/18 11:10 Tear Drop Cells Cancelled 06/10/18 11:10 Ovalocytes Cancelled 06/10/18 11:10 Stomatocytes Cancelled 06/10/18 11:10 [place] Bodies Cancelled 06/10/18 11:10 Madhav Cells 2+ 06/10/18 13:20 Acanthocytes (Spur) Cancelled 06/10/18 11:10 Schistocytes Cancelled 06/10/18 11:10 ESR 81 MM/HR (0-15) H 06/09/18 06:15 Sodium 142 mmol/L (136-145) 06/10/18 11:50 Potassium 4.0 mmol/L (3.5-5.1) 06/10/18 11:50 Chloride 106 mmol/L (98-107) 06/10/18 11:50 Carbon Dioxide 30.3 mmol/L (21.0-32.0) 06/10/18 11:50 Anion Gap 5.7 mmol/L (3-11) 06/10/18 11:50 BUN 25 mg/dL (7-18) H 06/10/18 11:50 Creatinine 0.78 mg/dL (0.70-1.30) 06/10/18 11:50 Estimated GFR/1.73 m2 >= 60.00 (mL/min/1.73m2) 06/10/18 11:50 Glucose 159 mg/dL (70-100) H 06/10/18 11:50 Calcium 8.5 mg/dL (8.5-10.1) 06/10/18 11:50 Magnesium 2.3 mg/dL (1.8-2.4) 06/09/18 14:26 Total Bilirubin 0.6 mg/dL (0.2-1.0) 06/10/18 11:50 Conjugated Bilirubin 0.39 mg/dL (0.00-0.20) H 06/10/18 11:50 AST 68 U/L (15-37) H 06/10/18 11:50 ALT 30 U/L (12-78) 06/10/18 11:50 Alkaline Phosphatase 52 U/L (46-116) 06/10/18 11:50 Creatine Kinase 149 U/L (39-308) 06/09/18 00:45 C-Reactive Protein > 25.00 mg/dL (0.0-0.3) H 06/09/18 06:15 Total Protein 5.4 g/dL (6.4-8.2) L 06/10/18 11:50 Albumin 1.4 g/dL (3.4-5.0) L 06/10/18 11:50
--- NOTE | 2018-06-11 04:15 | PGE_ITS ---
Date of Service Date of service: 06/11/18 Time of Service: 04:14 Subjective Interval history since last seen: ngt placed right nares, xray conformation and secures, gas heard in ruq Objective Objective Clinical Data: Abnormal lab results 06/10/18 06/10/18 Range/Units 11:50 13:20 WBC 13.46 H (4.4-10.8) k/cumm RBC 3.35 L (4.50-6.00) m/cumm Hgb 9.7 L (13.5-17.5) g/dL Hct 29.4 L (40.0-50.0) % RDW 15.5 H (11.8-14.1) % Absolute Neutrophils 11.04 H (1.2-6.7) k/cumm Absolute Lymphocytes 0.40 L (1.2-3.4) k/cumm Absolute Monocytes 1.21 H (0.11-0.7) k/cumm BUN 25 H (7-18) mg/dL Glucose 159 H (70-100) mg/dL Conjugated Bilirubin 0.39 H (0.00-0.20) mg/dL AST 68 H (15-37) U/L Total Protein 5.4 L (6.4-8.2) g/dL Albumin 1.4 L (3.4-5.0) g/dL Vital Signs Temperature 37.2 C 06/11/18 00:05 Temperature Source Tympanic 06/10/18 20:50 Pulse 89 06/11/18 02:00 Pulse Rhythm Regular 06/08/18 09:45 Pulse 92 H 06/11/18 02:00 Respiratory Rate 22 06/11/18 02:00 Respiratory Effort Non-Labored 06/11/18 03:29 Respiratory Depth Normal 06/11/18 03:29 Respiratory Pattern Normal 06/11/18 03:29 Blood Pressure 140/76 06/11/18 02:00 Blood Pressure Mean 89 06/11/18 02:00 Blood Pressure Position Supine 06/11/18 03:29 Pulse Oximetry 93 L 06/11/18 03:29 Respiratory End-tidal CO2 30 06/09/18 02:01 Oxygen Delivery Method Cpap 06/11/18 03:29 Oxygen Flow Rate 1.5 06/11/18 03:29 Fraction of Inspired Oxygen (FIO2) 21 06/10/18 14:00 Pain Level 5 06/11/18 00:05 Comment 06/08/18 10:24 Intake & Output 06/10/18 06/10/18 06/11/18 11:59 23:59 11:59 Intake Total 2141 / 5701 3560 / 5701 Output Total 600 / 2024 142 / 2024 Balance 1541 / 3676 2135 / 3676 Weight 116.2 kg Intake: IV 2141 / 5651 3510 / 5651 Injectate 50 / 50 Left Lower Distal Abdomen 50 / 50 Output: Drainage 100 / 100 Left Lower Distal Abdomen 100 / 100 Urine 600 / 1700 1100 / 1700 Stool 225 / 225 Other: Urine Color Light Hortensia Dark Hortensia Jackson Urine Appearance Cloudy Clear Sediment Comment Nuñez in place nuñez to gravity nuñez to gravity Stool Occult Blood Positive Stool Characteristics Brown Green Laboratory Results WBC 13.46 k/cumm (4.4-10.8) H 06/10/18 13:20 RBC 3.35 m/cumm (4.50-6.00) L 06/10/18 13:20 Hgb 9.7 g/dL (13.5-17.5) L 06/10/18 13:20 Hct 29.4 % (40.0-50.0) L 06/10/18 13:20 MCV 87.8 fL (80-95) 06/10/18 13:20 MCH 29.0 pg (27.0-33.0) 06/10/18 13:20 MCHC 33.0 g/dL (32.0-36.0) 06/10/18 13:20 RDW 15.5 % (11.8-14.1) H 06/10/18 13:20 Plt Count 216 x1000/uL (130-400) 06/10/18 13:20 MPV 9.9 fL (8.0-11.0) 06/10/18 13:20 Abs Immat Gran (auto) Cancelled 06/10/18 11:10 Immature Gran % See Differential 06/10/18 13:20 Neutrophils % 72.0 06/10/18 13:20 Lymphocytes % 3.0 06/10/18 13:20 Monocytes % 9.0 06/10/18 13:20 Eosinophils % 1.0 06/10/18 13:20 Basophils % 0.0 06/10/18 13:20 Absolute Neutrophils 11.04 k/cumm (1.2-6.7) H 06/10/18 13:20 Band Neutrophils 10.0 % 06/10/18 13:20 Absolute Lymphocytes 0.40 k/cumm (1.2-3.4) L 06/10/18 13:20 Absolute Monocytes 1.21 k/cumm (0.11-0.7) H 06/10/18 13:20 Absolute Eosinophils 0.13 k/cumm (0.0-0.7) 06/10/18 13:20 Absolute Basophils 0.00 k/cumm (0.0-0.2) 06/10/18 13:20 Metamyelocytes 4.0 % 06/10/18 13:20 Myelocytes 1.0 % 06/10/18 13:20 Promyelocytes Cancelled 06/10/18 11:10 Nucleated RBCs Cancelled 06/10/18 11:10 Differential Comment Manual differential 06/10/18 13:20 Atypical Lymphocytes Cancelled 06/10/18 11:10 Other Cell Type Cancelled 06/10/18 11:10 RBC Morphology See below 06/10/18 13:20 Polychromasia Present 06/09/18 06:15 Hypochromasia Cancelled 06/10/18 11:10 Poikilocytosis Cancelled 06/10/18 11:10 Basophilic Stippling Cancelled 06/10/18 11:10 Anisocytosis 1+ 06/09/18 06:15 Microcytosis Cancelled 06/10/18 11:10 Macrocytosis Cancelled 06/10/18 11:10 Spherocytes Cancelled 06/10/18 11:10 Target Cells Cancelled 06/10/18 11:10 Tear Drop Cells Cancelled 06/10/18 11:10 Ovalocytes Cancelled 06/10/18 11:10 Stomatocytes Cancelled 06/10/18 11:10 [place] Bodies Cancelled 06/10/18 11:10 Madhav Cells 2+ 06/10/18 13:20 Acanthocytes (Spur) Cancelled 06/10/18 11:10 Schistocytes Cancelled 06/10/18 11:10 ESR 81 MM/HR (0-15) H 06/09/18 06:15 Sodium 142 mmol/L (136-145) 06/10/18 11:50 Potassium 4.0 mmol/L (3.5-5.1) 06/10/18 11:50 Chloride 106 mmol/L (98-107) 06/10/18 11:50 Carbon Dioxide 30.3 mmol/L (21.0-32.0) 06/10/18 11:50 Anion Gap 5.7 mmol/L (3-11) 06/10/18 11:50 BUN 25 mg/dL (7-18) H 06/10/18 11:50 Creatinine 0.78 mg/dL (0.70-1.30) 06/10/18 11:50 Estimated GFR/1.73 m2 >= 60.00 (mL/min/1.73m2) 06/10/18 11:50 Glucose 159 mg/dL (70-100) H 06/10/18 11:50 Calcium 8.5 mg/dL (8.5-10.1) 06/10/18 11:50 Magnesium 2.3 mg/dL (1.8-2.4) 06/09/18 14:26 Total Bilirubin 0.6 mg/dL (0.2-1.0) 06/10/18 11:50 Conjugated Bilirubin 0.39 mg/dL (0.00-0.20) H 06/10/18 11:50 AST 68 U/L (15-37) H 06/10/18 11:50 ALT 30 U/L (12-78) 06/10/18 11:50 Alkaline Phosphatase 52 U/L (46-116) 06/10/18 11:50 Creatine Kinase 149 U/L (39-308) 06/09/18 00:45 C-Reactive Protein > 25.00 mg/dL (0.0-0.3) H 06/09/18 06:15 Total Protein 5.4 g/dL (6.4-8.2) L 06/10/18 11:50 Albumin 1.4 g/dL (3.4-5.0) L 06/10/18 11:50
--- NOTE | 2018-06-11 04:40 | DI.RAD_ITS ---
SYMPTOM/DIAGNOSIS: ABD PAIN, DISTENSION ABDOMEN: Semi erect sitting upright frontal image and KUB were obtained. Note is made of a region of increased density in the left lower lobe. There is no pneumothorax. The heart is within normal limits in size. Mottled, ill defined attenuation throughout the length of the left lateral abdomen could represent postoperative scattered intraperitoneal or subcutaneous gas bubbles however layering of extraluminal fecal material is of concern. There is gas and fluid throughout the small bowel and colon. There are no marva dilated bowel loops. There is a moderate quantity of fecal material in the rectum. There is a moderately large amount of pneumoperitoneum, concern for possible anastomotic leak. No acute bony abnormality is seen. Note is also made of percutaneous drain in the lower abdomen and pelvis. Note is also made of left abdominal skin maria a. SUMMARY: Findings which are suspicious for an anastomotic leak. There is a density in the left lower lobe which could represent atelectasis or infection or pleural effusion.
[2018-06-11] MEDS: Furosemide 20 MG/2 ML VIAL IVP ×2 (04:43→20:31)
--- NOTE | 2018-06-11 04:44 | PGE_ITS ---
Date of Service Date of service: 06/11/18 Time of Service: 04:43 Subjective Interval history since last seen: xrays completed and no free air noted ngt in good place dx post op ilieus and ngt tx for now Objective Objective Clinical Data: Abnormal lab results 06/10/18 06/10/18 Range/Units 11:50 13:20 WBC 13.46 H (4.4-10.8) k/cumm RBC 3.35 L (4.50-6.00) m/cumm Hgb 9.7 L (13.5-17.5) g/dL Hct 29.4 L (40.0-50.0) % RDW 15.5 H (11.8-14.1) % Absolute Neutrophils 11.04 H (1.2-6.7) k/cumm Absolute Lymphocytes 0.40 L (1.2-3.4) k/cumm Absolute Monocytes 1.21 H (0.11-0.7) k/cumm BUN 25 H (7-18) mg/dL Glucose 159 H (70-100) mg/dL Conjugated Bilirubin 0.39 H (0.00-0.20) mg/dL AST 68 H (15-37) U/L Total Protein 5.4 L (6.4-8.2) g/dL Albumin 1.4 L (3.4-5.0) g/dL Vital Signs Temperature 37.2 C 06/11/18 00:05 Temperature Source Tympanic 06/10/18 20:50 Pulse 89 06/11/18 02:00 Pulse Rhythm Regular 06/08/18 09:45 Pulse 92 H 06/11/18 02:00 Respiratory Rate 22 06/11/18 02:00 Respiratory Effort Non-Labored 06/11/18 03:29 Respiratory Depth Normal 06/11/18 03:29 Respiratory Pattern Normal 06/11/18 03:29 Blood Pressure 140/76 06/11/18 02:00 Blood Pressure Mean 89 06/11/18 02:00 Blood Pressure Position Supine 06/11/18 03:29 Pulse Oximetry 93 L 06/11/18 03:29 Respiratory End-tidal CO2 30 06/09/18 02:01 Oxygen Delivery Method Cpap 06/11/18 03:29 Oxygen Flow Rate 1.5 06/11/18 03:29 Fraction of Inspired Oxygen (FIO2) 21 06/10/18 14:00 Pain Level 5 06/11/18 00:05 Comment 06/08/18 10:24 Intake & Output 06/10/18 06/10/18 06/11/18 11:59 23:59 11:59 Intake Total 2141 / 5701 3560 / 5701 Output Total 600 / 5 1425 / 2025 Balance 1541 / 3676 2135 / 3676 Weight 116.2 kg Intake: IV 2141 / 5651 3510 / 5651 Injectate 50 / 50 Left Lower Distal Abdomen 50 / 50 Output: Drainage 100 / 100 Left Lower Distal Abdomen 100 / 100 Urine 600 / 1700 1100 / 1700 Stool 225 / 225 Other: Urine Color Light Hortensia Dark Hortensia Jackson Urine Appearance Cloudy Clear Sediment Comment Nuñez in place nuñez to gravity nuñez to gravity Stool Occult Blood Positive Stool Characteristics Brown Green Laboratory Results WBC 13.46 k/cumm (4.4-10.8) H 06/10/18 13:20 RBC 3.35 m/cumm (4.50-6.00) L 06/10/18 13:20 Hgb 9.7 g/dL (13.5-17.5) L 06/10/18 13:20 Hct 29.4 % (40.0-50.0) L 06/10/18 13:20 MCV 87.8 fL (80-95) 06/10/18 13:20 MCH 29.0 pg (27.0-33.0) 06/10/18 13:20 MCHC 33.0 g/dL (32.0-36.0) 06/10/18 13:20 RDW 15.5 % (11.8-14.1) H 06/10/18 13:20 Plt Count 216 x1000/uL (130-400) 06/10/18 13:20 MPV 9.9 fL (8.0-11.0) 06/10/18 13:20 Abs Immat Gran (auto) Cancelled 06/10/18 11:10 Immature Gran % See Differential 06/10/18 13:20 Neutrophils % 72.0 06/10/18 13:20 Lymphocytes % 3.0 06/10/18 13:20 Monocytes % 9.0 06/10/18 13:20 Eosinophils % 1.0 06/10/18 13:20 Basophils % 0.0 06/10/18 13:20 Absolute Neutrophils 11.04 k/cumm (1.2-6.7) H 06/10/18 13:20 Band Neutrophils 10.0 % 06/10/18 13:20 Absolute Lymphocytes 0.40 k/cumm (1.2-3.4) L 06/10/18 13:20 Absolute Monocytes 1.21 k/cumm (0.11-0.7) H 06/10/18 13:20 Absolute Eosinophils 0.13 k/cumm (0.0-0.7) 06/10/18 13:20 Absolute Basophils 0.00 k/cumm (0.0-0.2) 06/10/18 13:20 Metamyelocytes 4.0 % 06/10/18 13:20 Myelocytes 1.0 % 06/10/18 13:20 Promyelocytes Cancelled 06/10/18 11:10 Nucleated RBCs Cancelled 06/10/18 11:10 Differential Comment Manual differential 06/10/18 13:20 Atypical Lymphocytes Cancelled 06/10/18 11:10 Other Cell Type Cancelled 06/10/18 11:10 RBC Morphology See below 06/10/18 13:20 Polychromasia Present 06/09/18 06:15 Hypochromasia Cancelled 06/10/18 11:10 Poikilocytosis Cancelled 06/10/18 11:10 Basophilic Stippling Cancelled 06/10/18 11:10 Anisocytosis 1+ 06/09/18 06:15 Microcytosis Cancelled 06/10/18 11:10 Macrocytosis Cancelled 06/10/18 11:10 Spherocytes Cancelled 06/10/18 11:10 Target Cells Cancelled 06/10/18 11:10 Tear Drop Cells Cancelled 06/10/18 11:10 Ovalocytes Cancelled 06/10/18 11:10 Stomatocytes Cancelled 06/10/18 11:10 Rob[place] Bodies Cancelled 06/10/18 11:10 Madhav Cells 2+ 06/10/18 13:20 Acanthocytes (Spur) Cancelled 06/10/18 11:10 Schistocytes Cancelled 06/10/18 11:10 ESR 81 MM/HR (0-15) H 06/09/18 06:15 Sodium 142 mmol/L (136-145) 06/10/18 11:50 Potassium 4.0 mmol/L (3.5-5.1) 06/10/18 11:50 Chloride 106 mmol/L (98-107) 06/10/18 11:50 Carbon Dioxide 30.3 mmol/L (21.0-32.0) 06/10/18 11:50 Anion Gap 5.7 mmol/L (3-11) 06/10/18 11:50 BUN 25 mg/dL (7-18) H 06/10/18 11:50 Creatinine 0.78 mg/dL (0.70-1.30) 06/10/18 11:50 Estimated GFR/1.73 m2 >= 60.00 (mL/min/1.73m2) 06/10/18 11:50 Glucose 159 mg/dL (70-100) H 06/10/18 11:50 Calcium 8.5 mg/dL (8.5-10.1) 06/10/18 11:50 Magnesium 2.3 mg/dL (1.8-2.4) 06/09/18 14:26 Total Bilirubin 0.6 mg/dL (0.2-1.0) 06/10/18 11:50 Conjugated Bilirubin 0.39 mg/dL (0.00-0.20) H 06/10/18 11:50 AST 68 U/L (15-37) H 06/10/18 11:50 ALT 30 U/L (12-78) 06/10/18 11:50 Alkaline Phosphatase 52 U/L (46-116) 06/10/18 11:50 Creatine Kinase 149 U/L (39-308) 06/09/18 00:45 C-Reactive Protein > 25.00 mg/dL (0.0-0.3) H 06/09/18 06:15 Total Protein 5.4 g/dL (6.4-8.2) L 06/10/18 11:50 Albumin 1.4 g/dL (3.4-5.0) L 06/10/18 11:50
--- NOTE | 2018-06-11 05:58 | DI.VRAD_ITS ---
EXAM: XR Abdomen, 2 Views EXAM DATE/TIME: 06/11/2018 3:24 AM CLINICAL HISTORY: 42 years old, male; Pain; Abdominal pain; Generalized; Prior surgery; Surgery date: Post-operative (0-2 days); Surgery type: Jun 08 repair of anostomatic leak; Patient HX: Bloated and abd pain. Ng tube placed right before x-ray; Additional info: Icu PT. Images done portable per surgeon. One sitting upright and one flat TECHNIQUE: Frontal view of the abdomen/pelvis with upright view of the abdomen. COMPARISON: CR XR ABD FLAT UPRIGHT PA CHEST 06/08/2018 2:59 PM FINDINGS: Limitations: Limited portable examination. Tubes, catheters and devices: Nasogastric tube faintly visualized with its tip in the region of the body of the stomach. Lower thorax: Low lung volumes with suspected postoperative basilar atelectasis. Gastrointestinal tract: Mild gaseous distention of small and large bowel centrally within the abdomen, likely paralytic ileus. Intraperitoneal space: Large amount of free air previously demonstrated no longer seen with minimal if any air under the left hemidiaphragm. Organs: No organomegaly. Bones/joints: Unremarkable for age. Soft tissues: Surgical maria a left hemipelvis with midline surgical drain. IMPRESSION: 1. Nasogastric tube faintly visualized with its tip in the region of the body of the stomach. 2. Mild gaseous distention of small and large bowel centrally within the abdomen, likely paralytic ileus. 3. Low lung volumes with suspected postoperative basilar atelectasis. 4. No other significant findings on this limited portable exam. Dictated and Authenticated by: Sloan Yang MD. Ordering:EDMUNDO Juarez MD
--- NOTE | 2018-06-11 08:33 | W.PM.PROGNOT ---
Date of Service Date of service: 06/11/18 Time of Service: 08:33 Assessment and Plan (1) Anastomotic leak of intestine: Current visit: Yes Status: Acute POD #6- s/p sigmoid resection for stricture POD#3 s/p ex-lap for anastamotic leak with resection, re-anastamosis and loop ileostomy creation Labs are pending for CMP, CBCD, and Mg P\\1. Diet: Continue NPO. 2. NG tube in place 3. Nutrition: Started TPN, tolerating well. 4. Leukocytosis - on Antibiotics. Labs for today are pending. Continue antibiotics 5. Activity: start to increase activity as tolerated. Continue working with PT and OT today. 6. Pain: doing well with epidural. Continue per Anesthesia 7. DVT prophilaxis: Continue with Lovenox 8. Ulcer prophilaxis: continue with BID H2 mireya 9. Fluids- Continue NS (2) Sore throat: Current visit: Yes Status: Acute Improved. May continue with ice chips. NG tube is in place, if this causes irritation will order benzocaine lozenges. Subjective Interval history since last seen: Patient is tired this morning, reports that his abdomen continues to be painful. Exam Const General: ill appearing Orientation: alert and awake GI Inspection: distended Other: Changed drains to fluid evacuator bulb. They are Labeled as A (abdominal drain) and B (subcutaneous drain) Objective Objective Clinical Data: Abnormal lab results 06/10/18 06/10/18 Range/Units 11:50 13:20 WBC 13.46 H (4.4-10.8) k/cumm RBC 3.35 L (4.50-6.00) m/cumm Hgb 9.7 L (13.5-17.5) g/dL Hct 29.4 L (40.0-50.0) % RDW 15.5 H (11.8-14.1) % Absolute Neutrophils 11.04 H (1.2-6.7) k/cumm Absolute Lymphocytes 0.40 L (1.2-3.4) k/cumm Absolute Monocytes 1.21 H (0.11-0.7) k/cumm BUN 25 H (7-18) mg/dL Glucose 159 H (70-100) mg/dL Conjugated Bilirubin 0.39 H (0.00-0.20) mg/dL AST 68 H (15-37) U/L Total Protein 5.4 L (6.4-8.2) g/dL Albumin 1.4 L (3.4-5.0) g/dL Vital Signs Temperature 37.2 C 06/11/18 00:05 Temperature Source Tympanic 06/10/18 20:50 Pulse 93 H 06/11/18 06:01 Pulse Rhythm Regular 06/08/18 09:45 Pulse 82 06/11/18 06:10 Respiratory Rate 20 06/11/18 06:10 Respiratory Effort Non-Labored 06/11/18 03:29 Respiratory Depth Normal 06/11/18 03:29 Respiratory Pattern Normal 06/11/18 03:29 Blood Pressure 125/75 06/11/18 06:01 Blood Pressure Mean 87 06/11/18 06:01 Blood Pressure Position Supine 06/11/18 03:29 Pulse Oximetry 95 06/11/18 06:10 Respiratory End-tidal CO2 30 06/09/18 02:01 Oxygen Delivery Method Cpap 06/11/18 03:29 Oxygen Flow Rate 1.5 06/11/18 03:29 Fraction of Inspired Oxygen (FIO2) 21 06/10/18 14:00 Pain Level 8 06/11/18 07:53 Comment 06/08/18 10:24 Intake & Output 06/10/18 06/10/18 06/11/18 11:59 23:59 11:59 Intake Total 2141 / 5801 3660 / 5801 1152.5 / 1152.5 Output Total 600 / 2025 1425 / 2025 1425 / 1425 Balance 1541 / 3776 2235 / 3776 -272.5 / -272.5 Weight 116.2 kg 115.7 kg Intake: IV 2141 / 5751 3610 / 5751 1082.5 / 1082.5 Oral 20 / 20 Injectate 50 / 50 50 / 50 Left Lower Distal Abdomen 50 / 50 50 / 50 Output: Gastric Drainage 375 / 375 Right Nare 375 / 375 Drainage 100 / 100 Left Lower Distal Abdomen 100 / 100 Urine 600 / 1700 1100 / 1700 1050 / 1050 Stool 225 / 225 Other: Urine Color Light Hortensia Dark Hortensia Light Hortensia Jackson Urine Appearance Cloudy Clear Clear Sediment Comment Nuñez in place nuñez to gravity nuñez to gravity Stool Occult Blood Positive Stool Characteristics Brown Green Gastric Occult Blood Right Nare Negative Laboratory Results WBC 13.46 k/cumm (4.4-10.8) H 06/10/18 13:20 RBC 3.35 m/cumm (4.50-6.00) L 06/10/18 13:20 Hgb 9.7 g/dL (13.5-17.5) L 06/10/18 13:20 Hct 29.4 % (40.0-50.0) L 06/10/18 13:20 MCV 87.8 fL (80-95) 06/10/18 13:20 MCH 29.0 pg (27.0-33.0) 06/10/18 13:20 MCHC 33.0 g/dL (32.0-36.0) 06/10/18 13:20 RDW 15.5 % (11.8-14.1) H 06/10/18 13:20 Plt Count 216 x1000/uL (130-400) 06/10/18 13:20 MPV 9.9 fL (8.0-11.0) 06/10/18 13:20 Abs Immat Gran (auto) Cancelled 06/10/18 11:10 Immature Gran % See Differential 06/10/18 13:20 Neutrophils % 72.0 06/10/18 13:20 Lymphocytes % 3.0 06/10/18 13:20 Monocytes % 9.0 06/10/18 13:20 Eosinophils % 1.0 06/10/18 13:20 Basophils % 0.0 06/10/18 13:20 Absolute Neutrophils 11.04 k/cumm (1.2-6.7) H 06/10/18 13:20 Band Neutrophils 10.0 % 06/10/18 13:20 Absolute Lymphocytes 0.40 k/cumm (1.2-3.4) L 06/10/18 13:20 Absolute Monocytes 1.21 k/cumm (0.11-0.7) H 06/10/18 13:20 Absolute Eosinophils 0.13 k/cumm (0.0-0.7) 06/10/18 13:20 Absolute Basophils 0.00 k/cumm (0.0-0.2) 06/10/18 13:20 Metamyelocytes 4.0 % 06/10/18 13:20 Myelocytes 1.0 % 06/10/18 13:20 Promyelocytes Cancelled 06/10/18 11:10 Nucleated RBCs Cancelled 06/10/18 11:10 Differential Comment Manual differential 06/10/18 13:20 Atypical Lymphocytes Cancelled 06/10/18 11:10 Other Cell Type Cancelled 06/10/18 11:10 RBC Morphology See below 06/10/18 13:20 Polychromasia Present 06/09/18 06:15 Hypochromasia Cancelled 06/10/18 11:10 Poikilocytosis Cancelled 06/10/18 11:10 Basophilic Stippling Cancelled 06/10/18 11:10 Anisocytosis 1+ 06/09/18 06:15 Microcytosis Cancelled 06/10/18 11:10 Macrocytosis Cancelled 06/10/18 11:10 Spherocytes Cancelled 06/10/18 11:10 Target Cells Cancelled 06/10/18 11:10 Tear Drop Cells Cancelled 06/10/18 11:10 Ovalocytes Cancelled 06/10/18 11:10 Stomatocytes Cancelled 06/10/18 11:10 Rob[place] Bodies Cancelled 06/10/18 11:10 Madhav Cells 2+ 06/10/18 13:20 Acanthocytes (Spur) Cancelled 06/10/18 11:10 Schistocytes Cancelled 06/10/18 11:10 ESR 81 MM/HR (0-15) H 06/09/18 06:15 Sodium 142 mmol/L (136-145) 06/10/18 11:50 Potassium 4.0 mmol/L (3.5-5.1) 06/10/18 11:50 Chloride 106 mmol/L (98-107) 06/10/18 11:50 Carbon Dioxide 30.3 mmol/L (21.0-32.0) 06/10/18 11:50 Anion Gap 5.7 mmol/L (3-11) 06/10/18 11:50 BUN 25 mg/dL (7-18) H 06/10/18 11:50 Creatinine 0.78 mg/dL (0.70-1.30) 06/10/18 11:50 Estimated GFR/1.73 m2 >= 60.00 (mL/min/1.73m2) 06/10/18 11:50 Glucose 159 mg/dL (70-100) H 06/10/18 11:50 Calcium 8.5 mg/dL (8.5-10.1) 06/10/18 11:50 Magnesium 2.3 mg/dL (1.8-2.4) 06/09/18 14:26 Total Bilirubin 0.6 mg/dL (0.2-1.0) 06/10/18 11:50 Conjugated Bilirubin 0.39 mg/dL (0.00-0.20) H 06/10/18 11:50 AST 68 U/L (15-37) H 06/10/18 11:50 ALT 30 U/L (12-78) 06/10/18 11:50 Alkaline Phosphatase 52 U/L (46-116) 06/10/18 11:50 Creatine Kinase 149 U/L (39-308) 06/09/18 00:45 C-Reactive Protein > 25.00 mg/dL (0.0-0.3) H 06/09/18 06:15 Total Protein 5.4 g/dL (6.4-8.2) L 06/10/18 11:50 Albumin 1.4 g/dL (3.4-5.0) L 06/10/18 11:50
--- NOTE | 2018-06-11 09:11 | PDOC.CMPRO ---
- If Service Date Differs Date of service: 06/11/18 Time of Service: 09:11 Care Management Progress Note S/O: Hector is sleeping when CM visits this morning. He does not appear to be in any discomfort, and CM will attempt to visit later in the day. At present, Hector has a NG tube in place and has been started on TPN, which he is reportedly tolerating well. He has two drains in place which appear to be draining appropriately. PT/OT has been working with Hector and he is reportedly tolerating activity well, though reports that he is tired. A: 42 year old male admitted for colon stricture, anastamotic leak with resection, loop ileostomy. P: Hector will discharge home when medically ready per MD. Anticipate patient will discharge with new home health services (nursing for ostomy care) and follow up with surgical services. Hector will transport via private vehicle with his , Keli. CM will continue to offer support to patient, family, and care team regarding discharge planning and disposition.
--- NOTE | 2018-06-11 09:24 | PTTR_ITS ---
Date of service: 06/11/18 Time of Service: 09:22 PT Notes Date: 06/11/18 PRECAUTIONS: pre-medicate for pain prior to therapy session SUBJECTIVE: Pt lying in bed, states he had a rough night last night, asking so what is the plan?. Discussed with patient the plan that was reviewed yesterday, daily mobility/walking with exercise to increase strength and function. Pt agreeable after encouragement. Using [employer]OR [employer]SP[employer] INSPECTOR for pain medication. OBJECTIVE: General observation: IV, TPN, [employer]OR [employer]SP[employer] INSPECTOR, nuñez, telemetry, 2 liters 02 NC PAIN: c/o pain at surgical sites with movement, edema in scrotum BED MOBILITY/TRANSFERS Supine-sit: HOB 40 degrees, independent, pt able to get legs off bed, use of bed rail to assist upper trunk to partial roll on right, UE's used to get trunk to sitting. Sit-stand: SBA with bariatric FWW Bed-chair: supervision with bariatric FWW Stand-sit: supervision GAIT Assistive Device: bariatric FWW Assist: SBA Distance: 30ftx2- progressed to hallway out of room and turned outside room to return to recliner chair Deviation: wide base of support due to scrotal edema, slow step to gait pattern. THEREX: bilateral ankle pumps, quad sets, glute sets, long arc quads x 10 reps ASSESSMENT: Pt required increased encouragement to mobilize this morning, once moving he performed as same level as yesterday afternoon. Needs encouragement o increase out of bed activity and gait distance each session. PLAN: Progress strengthening Progress gait training TREATMENT CODE/TIME: 32min TAx1 TP x1 9:25 Elsa Barboza PT
[2018-06-11 09:34] LABS: Abs Immature Grans 0.94 k/cumm (0.0-0.09); HCT 35.4 % (40.0-50.0); HGB 11.7 g/dL (13.5-17.5); Mean Corp. HGB Concentration 33.1 g/dL (32.0-36.0); Mean Corpuscular Hemoglobin 28.6 pg (27.0-33.0); Mean Corpuscular Volume 86.6 fL (80-95); Mean Platelet Volume 9.3 fL (8.0-11.0); RBC 4.09 m/cumm (4.50-6.00); RBC Distribution Width 15.8 % (11.8-14.1); White Blood Cell Count 17.71 k/cumm (4.4-10.8)
[2018-06-11 09:45] LABS: ALT 35 U/L (12-78); AST 50 U/L (15-37); Albumin 1.4 g/dL (3.4-5.0); Alkaline Phosphatase 84 U/L (46-116); Anion Gap 7.7 mmol/L (3-11); BUN 18 mg/dL (7-18); Bilirubin, Total 0.8 mg/dL (0.2-1.0); CO2 29.3 mmol/L (21.0-32.0); CREATININE 0.73 mg/dL (0.70-1.30); Calcium 8.2 mg/dL (8.5-10.1); Chloride 104 mmol/L (98-107); Glucose 129 mg/dL (70-100); Magnesium 1.7 mg/dL (1.8-2.4); Potassium 3.8 mmol/L (3.5-5.1); Sodium 141 mmol/L (136-145); Total Protein 5.4 g/dL (6.4-8.2)
[2018-06-11 09:54] LABS: Absolute Lymphocyte Count 0.89 k/cumm (1.2-3.4); Absolute Monocyte Count 1.24 k/cumm (0.11-0.7); Absolute Neutrophil Count 15.23 k/cumm (1.2-6.7); Atypical Lymphocytes % 2; Diff Comment Manual Differential
[2018-06-11 09:55] LABS: Platelet Count 252 x1000/uL (130-400); Polychromasia Present
[2018-06-11 09:57] LABS: Acanthocytes 2+; Basophilic Stippling Present
--- NOTE | 2018-06-11 09:59 | OT.INTREAT ---
Date of service: 06/11/18 Time of Service: 09:25 Occupational Therapy Notes Occupational Therapy Inpatient Treatment Note Date: 06/11/18 SUBJECTIVE: Pt was sitting in the chair when OT arrived. He is agreeable to OT session and reports some pain in his abdomen. OBJECTIVE: PAIN: c/o pain in abdomen, pt does not quantify during OT session. FUNCTIONAL ADLS: BATHING: Sitting in chair, with wipes as pt denies soap and water Upper Body: (I) with hands, forearms, chest and face. Lower Body: NT today will attempt next session DRESSING: Sitting in chair Upper Extremity: Mod (A) with [facility] gown, min vc for pt to lift arms when placing on gown GROOMING: Sitting in chair pt able to brush teeth (I) with functional brushing movements and opening and closing containers. THEREX: [place] foam cube in (B) hands 20x each and instructed to perform throughout the day as frequent as symptoms allow. ASSESSMENT: Pt demonstrated (I) in UE self care tasks. He is still pain dominant but is demonstrating increased (I) since IE. Pt would benefit from continued skilled OT intervention for education and training in LE ADLs, dressing and (B) UE strengthening to increase (I) in ADL routines. PLAN: Next session OT will work with pt on functional activity tolerance during ADLS, LE bathing in sitting position and increased functional ROM of (B) UE. TREATMENT CODES/TIME: Self carex2, 09:25 (25 minutes) EVA Dickson/Vanessa
--- NOTE | 2018-06-11 10:08 | OTTR_ITS ---
Date of service: 06/11/18 Time of Service: 09:25 Occupational Therapy Notes Occupational Therapy Inpatient Treatment Note Date: 06/11/18 SUBJECTIVE: Pt was sitting in the chair when OT arrived. He is agreeable to OT session and reports some pain in his abdomen. OBJECTIVE: PAIN: c/o pain in abdomen, pt does not quantify during OT session. FUNCTIONAL ADLS: BATHING: Sitting in chair, with wipes as pt denies soap and water Upper Body: (I) with hands, forearms, chest and face. Lower Body: NT today will attempt next session DRESSING: Sitting in chair Upper Extremity: Mod (A) with [facility] gown, min vc for pt to lift arms when placing on gown GROOMING: Sitting in chair pt able to brush teeth (I) with functional brushing movements and opening and closing containers. THEREX: [place] foam cube in (B) hands 20x each and instructed to perform throughout the day as frequent as symptoms allow. ASSESSMENT: Pt demonstrated (I) in UE self care tasks. He is still pain dominant but is demonstrating increased (I) since IE. Pt would benefit from continued skilled OT intervention for education and training in LE ADLs, dressing and (B) UE strengthening to increase (I) in ADL routines. PLAN: Next session OT will work with pt on functional activity tolerance during ADLS, LE bathing in sitting position and increased functional ROM of (B) UE. TREATMENT CODES/TIME: Self carex2, 09:25 (25 minutes) EVA Dickson/Vanessa
--- NOTE | 2018-06-11 12:25 | PT.INTREAT ---
Date of service: 06/11/18 Time of Service: 12:25 PT Notes Inpatient Physical Therapy Treatment Note Date: 06/11/18 SUBJECTIVE: Patient is reluctant to particpate in PT, although is agreable after encouragement. OBJECTIVE: PAIN: Patient rates pain as 1/10 at rest. He c/o increased pain in scrotal area with transfers. BED MOBILITY/TRANSFERS Sit-supine: I Sit-stand: SBA Stand-sit: S GAIT Assistive Device: Bariatric FWW Weight bearing: WBAT Assist: SBA Distance: 30'x2 Deviation: Slow, steady pace THEREX: Patient completes a LE strengthening program, in a seated position, as per flow sheet. ASSESSMENT: Patient tolerated session with c/o pain with transfers and ther ex. Patient was able to demonstrate independence with [id number] transfer at this time. HE would benefit from continued gait and transfer training for improved mobility. PLAN: Continue with PT's POC TREATMENT CODE/TIME: 30 minutes; TA/TP
--- NOTE | 2018-06-11 14:35 | W.PM.PROGNOT ---
Date of Service Date of service: 06/11/18 Time of Service: 14:35 Assessment and Plan (1) Anastomotic leak of intestine: Current visit: Yes Status: Acute POD #6- s/p sigmoid resection for stricture POD#3 s/p ex-lap for anastamotic leak with resection, re-anastamosis and loop ileostomy creation P\\1. Diet: Continue NPO. 2. NG tube in place. He has benzocaine lozenges ordered Q6 hrs for throat discomfort. 3. Nutrition: Started TPN, tolerating well. Mg of 1.7 today, will add supplemental 5mg of Mg to his TPN starting at 1700. Will recheck level in the morning. 4. Leukocytosis - Continue antibiotics. 5. Activity: Doing well with PT and OT, getting out of bed and sitting in the chair. 6. Pain: doing well with epidural. Continue per Anesthesia 7. DVT prophilaxis: Continue with Lovenox 8. Ulcer prophylaxis: continue with BID H2 mireya 9. Fluids- Continue NS (2) Sore throat: Current visit: Yes Status: Acute Subjective Interval history since last seen: Patient was in the chair this morning with PT and OT. He reports that this went well. He reports generalized abdominal pain that increases with mobility. Denies nausea, vomiting. Heartburn has resolved since having NG tube placed. He reports some throat discomfort secondary to his NG tube, and that when he was given an benzocaine lozenge this improved. He reports passing gas. Exam Const General: cooperative and diaphoretic Orientation: alert and oriented x3 Resp Effort & Inspection: normal respiratory effort, no audible wheezes, no cough and not tachypneic GI Inspection: distended Palpation: soft, no guarding and tender with no rebound tenderness Auscultation: hypoactive bowel sounds Other: Dressing in place. Took down the dressing, mild erythema along the edges of his incision site. No drainage noted from this. Mild drainage around his drain tubing for his deep abdominal drain. Area was redressed with 4x4 gauze and mediport tape. Objective Objective Clinical Data: Abnormal lab results 06/11/18 06/11/18 Range/Units 09:24 09:24 WBC 17.71 H D (4.4-10.8) k/cumm RBC 4.09 L (4.50-6.00) m/cumm Hgb 11.7 L (13.5-17.5) g/dL Hct 35.4 L D (40.0-50.0) % RDW 15.8 H (11.8-14.1) % Absolute Neutrophils 15.23 H (1.2-6.7) k/cumm Absolute Lymphocytes 0.89 L (1.2-3.4) k/cumm Absolute Monocytes 1.24 H (0.11-0.7) k/cumm Glucose 129 H (70-100) mg/dL Calcium 8.2 L (8.5-10.1) mg/dL Magnesium 1.7 L (1.8-2.4) mg/dL AST 50 H (15-37) U/L Total Protein 5.4 L (6.4-8.2) g/dL Albumin 1.4 L (3.4-5.0) g/dL Vital Signs Temperature 37.2 C 06/11/18 00:05 Temperature Source Tympanic 06/10/18 20:50 Pulse 88 06/11/18 11:25 Pulse Rhythm Regular 06/08/18 09:45 Pulse 96 H 06/11/18 11:32 Respiratory Rate 20 06/11/18 11:32 Respiratory Effort Non-Labored 06/11/18 03:29 Respiratory Depth Normal 06/11/18 03:29 Respiratory Pattern Normal 06/11/18 03:29 Blood Pressure 153/75 H 06/11/18 11:32 Blood Pressure Mean 92 06/11/18 11:32 Blood Pressure Position Supine 06/11/18 03:29 Pulse Oximetry 97 06/11/18 11:25 Respiratory End-tidal CO2 30 06/09/18 02:01 Oxygen Delivery Method Nasal Cannula 06/11/18 08:30 Oxygen Flow Rate 2 06/11/18 08:30 Fraction of Inspired Oxygen (FIO2) 21 06/10/18 14:00 Pain Level 8 06/11/18 07:53 Comment 06/08/18 10:24 Intake & Output 06/10/18 06/11/18 06/11/18 23:59 11:59 23:59 Intake Total 3660 / 5801 1182.5 / 1282.5 100 / 1282.5 Output Total 1425 / 5 1950 / 1950 Balance 2235 / 3776 -767.5 / -667.5 100 / -667.5 Weight 115.7 kg Intake: IV 3610 / 5751 1112.5 / 1212.5 100 / 1212.5 Oral 20 / 20 Injectate 50 / 50 50 / 50 Left Lower Distal Abdomen 50 / 50 50 / 50 Output: Gastric Drainage 375 / 375 Right Nare 375 / 375 Drainage 100 / 100 Left Lower Distal Abdomen 100 / 100 Urine 1100 / 1700 1575 / 1575 Stool 225 / 225 Other: Urine Color Dark [place] Dark [place] Urine Appearance Clear Clear Comment nuñez to gravity nuñez to gravity Stool Occult Blood Positive Stool Characteristics Brown Green Gastric Occult Blood Right Nare Negative Negative Laboratory Results WBC 17.71 k/cumm (4.4-10.8) H D 06/11/18 09:24 RBC 4.09 m/cumm (4.50-6.00) L 06/11/18 09:24 Hgb 11.7 g/dL (13.5-17.5) L 06/11/18 09:24 Hct 35.4 % (40.0-50.0) L D 06/11/18 09:24 MCV 86.6 fL (80-95) 06/11/18 09:24 MCH 28.6 pg (27.0-33.0) 06/11/18 09:24 MCHC 33.1 g/dL (32.0-36.0) 06/11/18 09:24 RDW 15.8 % (11.8-14.1) H 06/11/18 09:24 Plt Count 252 x1000/uL (130-400) 06/11/18 09:24 MPV 9.3 fL (8.0-11.0) 06/11/18 09:24 Abs Immat Gran (auto) Cancelled 06/10/18 11:10 Immature Gran % 0.0 06/11/18 09:24 Neutrophils % 78.0 06/11/18 09:24 Lymphocytes % 3.0 06/11/18 09:24 Monocytes % 7.0 06/11/18 09:24 Eosinophils % 0.0 06/11/18 09:24 Basophils % 0.0 06/11/18 09:24 Absolute Neutrophils 15.23 k/cumm (1.2-6.7) H 06/11/18 09:24 Band Neutrophils 8.0 % 06/11/18 09:24 Absolute Lymphocytes 0.89 k/cumm (1.2-3.4) L 06/11/18 09:24 Absolute Monocytes 1.24 k/cumm (0.11-0.7) H 06/11/18 09:24 Absolute Eosinophils 0.00 k/cumm (0.0-0.7) 06/11/18 09:24 Absolute Basophils 0.00 k/cumm (0.0-0.2) 06/11/18 09:24 Metamyelocytes 1.0 % 06/11/18 09:24 Myelocytes 1.0 % 06/11/18 09:24 Promyelocytes Cancelled 06/10/18 11:10 Nucleated RBCs Cancelled 06/10/18 11:10 Differential Comment Manual differential 06/11/18 09:24 Atypical Lymphocytes 2 06/11/18 09:24 Other Cell Type Cancelled 06/10/18 11:10 RBC Morphology See below 06/11/18 09:24 Polychromasia Present 06/11/18 09:24 Hypochromasia Cancelled 06/10/18 11:10 Poikilocytosis Cancelled 06/10/18 11:10 Basophilic Stippling Present 06/11/18 09:24 Anisocytosis 1+ 06/09/18 06:15 Microcytosis Cancelled 06/10/18 11:10 Macrocytosis Cancelled 06/10/18 11:10 Spherocytes Cancelled 06/10/18 11:10 Target Cells Cancelled 06/10/18 11:10 Tear Drop Cells Cancelled 06/10/18 11:10 Ovalocytes Cancelled 06/10/18 11:10 Stomatocytes Cancelled 06/10/18 11:10 [place] Bodies Cancelled 06/10/18 11:10 [place] Cells 2+ 06/10/18 13:20 Acanthocytes (Spur) 2+ 06/11/18 09:24 Schistocytes Cancelled 06/10/18 11:10 ESR 81 MM/HR (0-15) H 06/09/18 06:15 Sodium 141 mmol/L (136-145) 06/11/18 09:24 Potassium 3.8 mmol/L (3.5-5.1) 06/11/18 09:24 Chloride 104 mmol/L (98-107) 06/11/18 09:24 Carbon Dioxide 29.3 mmol/L (21.0-32.0) 06/11/18 09:24 Anion Gap 7.7 mmol/L (3-11) 06/11/18 09:24 BUN 18 mg/dL (7-18) D 06/11/18 09:24 Creatinine 0.73 mg/dL (0.70-1.30) 06/11/18 09:24 Estimated GFR/1.73 m2 >= 60.00 (mL/min/1.73m2) 06/11/18 09:24 Glucose 129 mg/dL (70-100) H 06/11/18 09:24 Calcium 8.2 mg/dL (8.5-10.1) L 06/11/18 09:24 Magnesium 1.7 mg/dL (1.8-2.4) L 06/11/18 09:24 Total Bilirubin 0.8 mg/dL (0.2-1.0) 06/11/18 09:24 Conjugated Bilirubin 0.39 mg/dL (0.00-0.20) H 06/10/18 11:50 AST 50 U/L (15-37) H 06/11/18 09:24 ALT 35 U/L (12-78) 06/11/18 09:24 Alkaline Phosphatase 84 U/L (46-116) 06/11/18 09:24 Creatine Kinase 149 U/L (39-308) 06/09/18 00:45 C-Reactive Protein > 25.00 mg/dL (0.0-0.3) H 06/09/18 06:15 Total Protein 5.4 g/dL (6.4-8.2) L 06/11/18 09:24 Albumin 1.4 g/dL (3.4-5.0) L 06/11/18 09:24
--- NOTE | 2018-06-11 16:51 | PDOC.ANES ---
Date of service: 06/11/18 Time of Service: 16:51 Patient has epidural infusion running at 12 mL/hr. Patient has been up to ambulate X2 with physical therapy/nursing and has good motor strength in his legs. No sensory deficits in legs. Reports some discomfort 6/10 at rest. Dressing intact as well as catheter with CHG dressing. Administered 5ml clinician bolus through pump and changed bolus from 3ml to 5ml. Plan is to maintain epidural and stressed importance of ambulation to patient.
--- NOTE | 2018-06-11 16:54 | ANES_ITS ---
Date of service: 06/11/18 Time of Service: 16:51 Patient has epidural infusion running at 12 mL/hr. Patient has been up to ambulate X2 with physical therapy/nursing and has good motor strength in his legs. No sensory deficits in legs. Reports some discomfort 6/10 at rest. Dressing intact as well as catheter with CHG dressing. Administered 5ml cl inician bolus through pump and changed bolus from 3ml to 5ml. Plan is to maintain epidural and stressed importance of ambulation to patient.
[2018-06-11] MEDS: Insulin Aspart 300 UNITS/3 ML PEN SC (19:00)
--- NOTE | 2018-06-11 20:26 | W.PM.PROGNOT ---
Date of Service Date of service: 06/11/18 Time of Service: 20:26 Assessment and Plan (1) Fluid overload: Start date: 06/11/18 Start time: 20:27 Current visit: Yes Status: Acute 20 lasix ordered IVF to 75cc/hr (2) Postoperative ileus: Start date: 06/11/18 Start time: 20:27 Current visit: Yes Status: Acute NGT in place NPO Subjective Patient reports: no new complaints Interval history since last seen: feels edematous Objective Objective Clinical Data: Abnormal lab results 06/11/18 06/11/18 Range/Units 09:24 09:24 WBC 17.71 H D (4.4-10.8) k/cumm RBC 4.09 L (4.50-6.00) m/cumm Hgb 11.7 L (13.5-17.5) g/dL Hct 35.4 L D (40.0-50.0) % RDW 15.8 H (11.8-14.1) % Absolute Neutrophils 15.23 H (1.2-6.7) k/cumm Absolute Lymphocytes 0.89 L (1.2-3.4) k/cumm Absolute Monocytes 1.24 H (0.11-0.7) k/cumm Glucose 129 H (70-100) mg/dL Calcium 8.2 L (8.5-10.1) mg/dL Magnesium 1.7 L (1.8-2.4) mg/dL AST 50 H (15-37) U/L Total Protein 5.4 L (6.4-8.2) g/dL Albumin 1.4 L (3.4-5.0) g/dL Vital Signs Temperature 36.6 C 06/11/18 18:45 Temperature Source Tympanic 06/11/18 18:45 Pulse 102 H 06/11/18 18:12 Pulse Rhythm Regular 06/08/18 09:45 Pulse 108 H 06/11/18 18:12 Respiratory Rate 20 06/11/18 18:12 Respiratory Effort Non-Labored 06/11/18 15:28 Respiratory Depth Normal 06/11/18 15:28 Respiratory Pattern Normal 06/11/18 15:28 Blood Pressure 136/66 06/11/18 18:12 Blood Pressure Mean 83 06/11/18 18:12 Blood Pressure Position Supine 12/19/18 15:28 Pulse Oximetry 94 L 06/11/18 18:18 Respiratory End-tidal CO2 30 06/09/18 02:01 Oxygen Delivery Method Nasal Cannula 06/11/18 18:18 Oxygen Flow Rate 2 06/11/18 18:18 Fraction of Inspired Oxygen (FIO2) 21 06/10/18 14:00 Pain Level 5 06/11/18 15:28 Comment 06/08/18 10:24 Intake & Output 06/10/18 06/11/18 06/11/18 23:59 11:59 23:59 Intake Total 3660 / 5801 2213.5 / 5398.5 3185 / 5398.5 Output Total 1425 / 2025 1950 / 2800 850 / 2800 Balance 2235 / 3776 263.5 / 2598.5 2335 / 2598.5 Weight 115.7 kg Intake: IV 3610 / 5751 2143.5 / 5303.5 3160 / 5303.5 Oral 20 / 20 Injectate 50 / 50 50 / 75 25 / 75 Left Lower Distal Abdomen 50 / 50 50 / 75 25 / 75 Output: Gastric Drainage 375 / 600 225 / 600 Right Nare 375 / 600 225 / 600 Drainage 100 / 100 Left Lower Distal Abdomen 100 / 100 Urine 1100 / 1700 1575 / 2025 450 / 2025 Stool 225 / 225 175 / 175 Other: Urine Color Dark [place] Dark [place] Dark [place] Urine Appearance Clear Clear Clear Comment nuñez to gravity nuñez to gravity nuñez to gravity Stool Occult Blood Positive Stool Characteristics Brown Green Gastric Occult Blood Right Nare Negative Negative Laboratory Results WBC 17.71 k/cumm (4.4-10.8) H D 06/11/18 09:24 RBC 4.09 m/cumm (4.50-6.00) L 06/11/18 09:24 Hgb 11.7 g/dL (13.5-17.5) L 06/11/18 09:24 Hct 35.4 % (40.0-50.0) L D 06/11/18 09:24 MCV 86.6 fL (80-95) 06/11/18 09:24 MCH 28.6 pg (27.0-33.0) 06/11/18 09:24 MCHC 33.1 g/dL (32.0-36.0) 06/11/18 09:24 RDW 15.8 % (11.8-14.1) H 06/11/18 09:24 Plt Count 252 x1000/uL (130-400) 06/11/18 09:24 MPV 9.3 fL (8.0-11.0) 06/11/18 09:24 Abs Immat Gran (auto) Cancelled 06/10/18 11:10 Immature Gran % 0.0 06/11/18 09:24 Neutrophils % 78.0 06/11/18 09:24 Lymphocytes % 3.0 06/11/18 09:24 Monocytes % 7.0 06/11/18 09:24 Eosinophils % 0.0 06/11/18 09:24 Basophils % 0.0 06/11/18 09:24 Absolute Neutrophils 15.23 k/cumm (1.2-6.7) H 06/11/18 09:24 Band Neutrophils 8.0 % 06/11/18 09:24 Absolute Lymphocytes 0.89 k/cumm (1.2-3.4) L 06/11/18 09:24 Absolute Monocytes 1.24 k/cumm (0.11-0.7) H 06/11/18 09:24 Absolute Eosinophils 0.00 k/cumm (0.0-0.7) 06/11/18 09:24 Absolute Basophils 0.00 k/cumm (0.0-0.2) 06/11/18 09:24 Metamyelocytes 1.0 % 06/11/18 09:24 Myelocytes 1.0 % 06/11/18 09:24 Promyelocytes Cancelled 06/10/18 11:10 Nucleated RBCs Cancelled 06/10/18 11:10 Differential Comment Manual differential 06/11/18 09:24 Atypical Lymphocytes 2 06/11/18 09:24 Other Cell Type Cancelled 06/10/18 11:10 RBC Morphology See below 06/11/18 09:24 Polychromasia Present 06/11/18 09:24 Hypochromasia Cancelled 06/10/18 11:10 Poikilocytosis Cancelled 06/10/18 11:10 Basophilic Stippling Present 06/11/18 09:24 Anisocytosis 1+ 06/09/18 06:15 Microcytosis Cancelled 06/10/18 11:10 Macrocytosis Cancelled 06/10/18 11:10 Spherocytes Cancelled 06/10/18 11:10 Target Cells Cancelled 06/10/18 11:10 Tear Drop Cells Cancelled 06/10/18 11:10 Ovalocytes Cancelled 06/10/18 11:10 Stomatocytes Cancelled 06/10/18 11:10 [place] Bodies Cancelled 06/10/18 11:10 [place] Cells 2+ 06/10/18 13:20 Acanthocytes (Spur) 2+ 06/11/18 09:24 Schistocytes Cancelled 06/10/18 11:10 ESR 81 MM/HR (0-15) H 06/09/18 06:15 Sodium 141 mmol/L (136-145) 06/11/18 09:24 Potassium 3.8 mmol/L (3.5-5.1) 06/11/18 09:24 Chloride 104 mmol/L (98-107) 06/11/18 09:24 Carbon Dioxide 29.3 mmol/L (21.0-32.0) 06/11/18 09:24 Anion Gap 7.7 mmol/L (3-11) 06/11/18 09:24 BUN 18 mg/dL (7-18) D 06/11/18 09:24 Creatinine 0.73 mg/dL (0.70-1.30) 06/11/18 09:24 Estimated GFR/1.73 m2 >= 60.00 (mL/min/1.73m2) 06/11/18 09:24 Glucose 129 mg/dL (70-100) H 06/11/18 09:24 Calcium 8.2 mg/dL (8.5-10.1) L 06/11/18 09:24 Magnesium 1.7 mg/dL (1.8-2.4) L 06/11/18 09:24 Total Bilirubin 0.8 mg/dL (0.2-1.0) 06/11/18 09:24 Conjugated Bilirubin 0.39 mg/dL (0.00-0.20) H 06/10/18 11:50 AST 50 U/L (15-37) H 06/11/18 09:24 ALT 35 U/L (12-78) 06/11/18 09:24 Alkaline Phosphatase 84 U/L (46-116) 06/11/18 09:24 Creatine Kinase 149 U/L (39-308) 06/09/18 00:45 C-Reactive Protein > 25.00 mg/dL (0.0-0.3) H 06/09/18 06:15 Total Protein 5.4 g/dL (6.4-8.2) L 06/11/18 09:24 Albumin 1.4 g/dL (3.4-5.0) L 06/11/18 09:24
[2018-06-11] MEDS: Enoxaparin 40 MG/0.4 ML SYR SC (20:31)
[2018-06-12] VITALS (43 sets, daily range): BP systolic 124–142; BP diastolic 60–79; PULSE 86–108; RESP 12–29; TEMP 36.2–38.3; O2SAT 89–99
[2018-06-12] MEDS: Normal Saline 1,000 ML 7755 ML IV (00:29)
[2018-06-12] MEDS: ACETAMINOPHEN 1,000 MG/100 ML BTL 400 MG IVPB ×2 (03:15→11:22)
--- NOTE | 2018-06-12 07:26 | PGE_ITS ---
Documented by User: [email or web address] Cast 06/12/18 07:26 Date of Service Date of service: 06/12/18 Time of Service: 07:18 Assessment and Plan (1) Anastomotic leak of intestine: Current visit: Yes Status: Acute POD #7- s/p sigmoid resection for stricture POD#4 s/p ex-lap for anastamotic leak with resection, re-anastamosis and loop ileostomy creation P\\1. Diet: Continue NPO. 2. NG tube in place. He has benzocaine lozenges ordered Q6 hrs for throat discomfort. 3. Nutrition: Started TPN, tolerating well. 4. Leukocytosis - Stopped Ertapenem, changed to metronidazole and Ciprofloxacin 5. Activity: Doing well with PT and OT, getting out of bed and sitting in the chair. 6. Pain: doing well with epidural. Continue per Anesthesia 7. DVT prophylaxis: Continue with Lovenox 8. Ulcer prophylaxis: continue with BID H2 mireya 9. Fluids- Continue NS 10. Iliostomy- Minimal output 11. Abdominal drains- Intraabdominal drain (A)- feculent material. Subcutaneous drain (B) serosanguineous material. (2) Sore throat: Current visit: Yes Status: Acute Improving with use of ice chips and benzocaine lozenges. Subjective Interval history since last seen: Arrive with patient sitting up in the chair this morning. He reports that he is feeling less edematous today. Denies nausea or vomiting. Exam Const General: cooperative and comfortable Orientation: alert and oriented x3 GI Inspection: incision (Covered with dressing) Palpation: soft, no guarding and tender Extrem General: pedal edema (Improved compared to yesterday; 2+ ) Objective Objective Clinical Data: Abnormal lab results 06/11/18 06/11/18 Range/Units 09:24 09:24 WBC 17.71 H D (4.4-10.8) k/cumm RBC 4.09 L (4.50-6.00) m/cumm Hgb 11.7 L (13.5-17.5) g/dL Hct 35.4 L D (40.0-50.0) % RDW 15.8 H (11.8-14.1) % Absolute Neutrophils 15.23 H (1.2-6.7) k/cumm Absolute Lymphocytes 0.89 L (1.2-3.4) k/cumm Absolute Monocytes 1.24 H (0.11-0.7) k/cumm Glucose 129 H (70-100) mg/dL Calcium 8.2 L (8.5-10.1) mg/dL Magnesium 1.7 L (1.8-2.4) mg/dL AST 50 H (15-37) U/L Total Protein 5.4 L (6.4-8.2) g/dL Albumin 1.4 L (3.4-5.0) g/dL Vital Signs Temperature 36.2 C L 06/12/18 04:22 Temperature Source Temporal Artery Scan 06/12/18 04:22 Pulse 89 06/12/18 01:01 Pulse Rhythm Regular 06/08/18 09:45 Pulse 90 06/12/18 01:01 Respiratory Rate 20 06/12/18 01:01 Respiratory Effort Non-Labored 06/11/18 23:57 Respiratory Depth Normal 06/11/18 23:57 Respiratory Pattern Normal 06/11/18 23:57 Blood Pressure 130/72 06/12/18 01:01 Blood Pressure Mean 87 06/12/18 01:01 Blood Pressure Position Supine 06/11/18 23:57 Pulse Oximetry 96 06/12/18 01:01 Respiratory End-tidal CO2 30 06/09/18 02:01 Oxygen Delivery Method Nasal Cannula 06/11/18 23:57 Oxygen Flow Rate 2 06/11/18 23:57 Fraction of Inspired Oxygen (FIO2) 21 06/10/18 14:00 Pain Level 7 06/11/18 23:57 Comment 06/08/18 10:24 Intake & Output 06/11/18 06/11/18 06/12/18 11:59 23:59 11:59 Intake Total 2213.5 / 5498.5 3285 / 5498.5 100 / 100 Output Total 1950 / 4875 2925 / 4875 0 / 0 Balance 263.5 / 623.5 360 / 623.5 100 / 100 Weight 114.3 kg Intake: IV 2143.5 / 5403.5 3260 / 5403.5 100 / 100 Oral 20 / 20 Injectate 50 / 75 25 / 75 Left Lower Distal Abdomen 50 / 75 25 / 75 Output: Gastric Drainage 375 / 850 475 / 850 Right Nare 375 / 850 475 / 850 Drainage 125 / 125 0 / 0 Lateral Abdomen 50 / 50 0 / 0 Medial Abdomen 75 / 75 0 / 0 Urine 1575 / 3725 2150 / 3725 Stool 175 / 175 Other: Urine Color Dark [place] Dark [place] Dark [place] Urine Appearance Clear Clear Clear Comment nuñez to gravity nuñez to gravity Gastric Occult Blood Right Nare Negative Positive Positive Laboratory Results WBC 17.71 k/cumm (4.4-10.8) H D 06/11/18 09:24 RBC 4.09 m/cumm (4.50-6.00) L 06/11/18 09:24 Hgb 11.7 g/dL (13.5-17.5) L 06/11/18 09:24 Hct 35.4 % (40.0-50.0) L D 06/11/18 09:24 MCV 86.6 fL (80-95) 06/11/18 09:24 MCH 28.6 pg (27.0-33.0) 06/11/18 09:24 MCHC 33.1 g/dL (32.0-36.0) 06/11/18 09:24 RDW 15.8 % (11.8-14.1) H 06/11/18 09:24 Plt Count 252 x1000/uL (130-400) 06/11/18 09:24 MPV 9.3 fL (8.0-11.0) 06/11/18 09:24 Abs Immat Gran (auto) Cancelled 06/10/18 11:10 Immature Gran % 0.0 06/11/18 09:24 Neutrophils % 78.0 06/11/18 09:24 Lymphocytes % 3.0 06/11/18 09:24 Monocytes % 7.0 06/11/18 09:24 Eosinophils % 0.0 06/11/18 09:24 Basophils % 0.0 06/11/18 09:24 Absolute Neutrophils 15.23 k/cumm (1.2-6.7) H 06/11/18 09:24 Band Neutrophils 8.0 % 06/11/18 09:24 Absolute Lymphocytes 0.89 k/cumm (1.2-3.4) L 06/11/18 09:24 Absolute Monocytes 1.24 k/cumm (0.11-0.7) H 06/11/18 09:24 Absolute Eosinophils 0.00 k/cumm (0.0-0.7) 06/11/18 09:24 Absolute Basophils 0.00 k/cumm (0.0-0.2) 06/11/18 09:24 Metamyelocytes 1.0 % 06/11/18 09:24 Myelocytes 1.0 % 06/11/18 09:24 Promyelocytes Cancelled 06/10/18 11:10 Nucleated RBCs Cancelled 06/10/18 11:10 Differential Comment Manual differential 06/11/18 09:24 Atypical Lymphocytes 2 06/11/18 09:24 Other Cell Type Cancelled 06/10/18 11:10 RBC Morphology See below 06/11/18 09:24 Polychromasia Present 06/11/18 09:24 Hypochromasia Cancelled 06/10/18 11:10 Poikilocytosis Cancelled 06/10/18 11:10 Basophilic Stippling Present 06/11/18 09:24 Anisocytosis 1+ 06/09/18 06:15 Microcytosis Cancelled 06/10/18 11:10 Macrocytosis Cancelled 06/10/18 11:10 Spherocytes Cancelled 06/10/18 11:10 Target Cells Cancelled 06/10/18 11:10 Tear Drop Cells Cancelled 06/10/18 11:10 Ovalocytes Cancelled 06/10/18 11:10 Stomatocytes Cancelled 06/10/18 11:10 [place] Bodies Cancelled 06/10/18 11:10 [place] Cells 2+ 06/10/18 13:20 Acanthocytes (Spur) 2+ 06/11/18 09:24 Schistocytes Cancelled 06/10/18 11:10 ESR 81 MM/HR (0-15) H 06/09/18 06:15 Sodium 141 mmol/L (136-145) 06/11/18 09:24 Potassium 3.8 mmol/L (3.5-5.1) 06/11/18 09:24 Chloride 104 mmol/L (98-107) 06/11/18 09:24 Carbon Dioxide 29.3 mmol/L (21.0-32.0) 06/11/18 09:24 Anion Gap 7.7 mmol/L (3-11) 06/11/18 09:24 BUN 18 mg/dL (7-18) D 06/11/18 09:24 Creatinine 0.73 mg/dL (0.70-1.30) 06/11/18 09:24 Estimated GFR/1.73 m2 >= 60.00 (mL/min/1.73m2) 06/11/18 09:24 Glucose 129 mg/dL (70-100) H 06/11/18 09:24 Calcium 8.2 mg/dL (8.5-10.1) L 06/11/18 09:24 Magnesium 1.7 mg/dL (1.8-2.4) L 06/11/18 09:24 Total Bilirubin 0.8 mg/dL (0.2-1.0) 06/11/18 09:24 Conjugated Bilirubin 0.39 mg/dL (0.00-0.20) H 06/10/18 11:50 AST 50 U/L (15-37) H 06/11/18 09:24 ALT 35 U/L (12-78) 06/11/18 09:24 Alkaline Phosphatase 84 U/L (46-116) 06/11/18 09:24 Creatine Kinase 149 U/L (39-308) 06/09/18 00:45 C-Reactive Protein > 25.00 mg/dL (0.0-0.3) H 06/09/18 06:15 Total Protein 5.4 g/dL (6.4-8.2) L 06/11/18 09:24 Albumin 1.4 g/dL (3.4-5.0) L 06/11/18 09:24 Documented by User: Larry Gomez III, 06/12/18 08:40 Assessment and Plan (1) Anastomotic leak of intestine: Current visit: Yes Status: Acute (2) Fluid overload: Start date: 06/12/18 Start time: 08:38 Current visit: Yes Status: Acute stop IVF, pt getting enough via TPN pt given lasix (3) Postoperative ileus: Start date: 06/12/18 Start time: 08:39 Current visit: Yes Status: Acute NGT in place and working well (4) Leukocytosis: Start date: 06/12/18 Start time: 08:39 Current visit: Yes Status: Acute concern for intraabdominal abscess and poss wound infection
[2018-06-12] MEDS: Furosemide 20 MG/2 ML VIAL IVP (07:45)
[2018-06-12 08:04] LABS: Abs Immature Grans 1.11 k/cumm (0.0-0.09); HCT 33.7 % (40.0-50.0); HGB 11.1 g/dL (13.5-17.5); Mean Corp. HGB Concentration 32.9 g/dL (32.0-36.0); Mean Corpuscular Hemoglobin 28.8 pg (27.0-33.0); Mean Corpuscular Volume 87.5 fL (80-95); Mean Platelet Volume 9.2 fL (8.0-11.0); Platelet Count 314 x1000/uL (130-400); RBC 3.85 m/cumm (4.50-6.00); RBC Distribution Width 15.7 % (11.8-14.1); White Blood Cell Count 17.72 k/cumm (4.4-10.8)
[2018-06-12 08:16] LABS: ALT 38 U/L (12-78); AST 37 U/L (15-37); Albumin 1.3 g/dL (3.4-5.0); Alkaline Phosphatase 83 U/L (46-116); Anion Gap 5.8 mmol/L (3-11); BUN 18 mg/dL (7-18); Bilirubin, Total 0.8 mg/dL (0.2-1.0); CO2 31.2 mmol/L (21.0-32.0); CREATININE 0.57 mg/dL (0.70-1.30); Calcium 8.1 mg/dL (8.5-10.1); Chloride 104 mmol/L (98-107); Glucose 131 mg/dL (70-100); Potassium 3.7 mmol/L (3.5-5.1); Sodium 141 mmol/L (136-145); Total Protein 5.5 g/dL (6.4-8.2)
[2018-06-12 08:36] LABS: Absolute Lymphocyte Count 1.77 k/cumm (1.2-3.4); Absolute Monocyte Count 1.42 k/cumm (0.11-0.7); Absolute Neutrophil Count 13.64 k/cumm (1.2-6.7); Atypical Lymphocytes % 2; Diff Comment Manual Differential
[2018-06-12 08:37] LABS: RBC Morphology Normal
[2018-06-12] MEDS: CIPROFLOXACIN 400 MG/200 ML BAG 200 MG IVPB ×2 (09:08→21:11)
--- NOTE | 2018-06-12 10:16 | OT.INTREAT ---
Date of service: 06/12/18 Time of Service: 09:50 Occupational Therapy Notes Occupational Therapy Inpatient Treatment Note Date: 06/12/18 SUBJECTIVE: Pt was working with PT prior to OT session. When OT arrived he was sitting in chair and agreeable to OT session. He reports that nursing performed bathing routine prior to OT arrival. OBJECTIVE: PAIN:c/o pain in pts abdomen when performing any type of motion. Pt did not quantify during session but pain behaviors noted throughout. BATHING: Pt denies reporting that nursing performed this prior to OT session. DRESSING: Upper Extremity: Min (A) hospital gown for pts back. Lower Extremity: Max (A) (B) socks. GROOMING: (I) with brushing teeth sitting in chair. 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 ASSESSMENT: Pt is demonstrating increased functional activity tolerance. Bathing he is demonstrating increased (I) for washing face, (B) UE and upper thighs. OT was going to progress pts bathing routine today for LE and nursing reported In the ICU we don't want pts bending or reaching forward. OT was unable to assess this at todays session. However, pt did demonstrate improved functional activity tolerance for dynamic movements and would benefit from continued skilled OT intervention for education and training for increased dressing and bathing routines. PLAN: Per POC. TREATMENT CODES/TIME: TAx1, 20 minutes EVA Dickson/Vanessa
--- NOTE | 2018-06-12 10:29 | OTTR_ITS ---
Date of service: 06/12/18 Time of Service: 09:50 Occupational Therapy Notes Occupational Therapy Inpatient Treatment Note Date: 06/12/18 SUBJECTIVE: Pt was working with PT prior to OT session. When OT arrived he was sitting in chair and agreeable to OT session. He reports that nursing performed bathing routine prior to OT arrival. OBJECTIVE: PAIN:c/o pain in pts abdomen when performing any type of motion. Pt did not quantify during session but pain behaviors noted throughout. BATHING: Pt denies reporting that nursing performed this prior to OT session. DRESSING: Upper Extremity: Min (A) hospital gown for pts back. Lower Extremity: Max (A) (B) socks. GROOMING: (I) with brushing teeth sitting in chair. THEREX: Pt performed the following dynamic functional strengthening and ROM activities to include: [place] foam cube [employer] 10x each hand Shoulder flexion 10x (B) UE Elbow flexion 10x (B) UE Pt is able to functionally reach towards lower legs and touch face and head. ASSESSMENT: Pt is demonstrating increased functional activity tolerance. Bathing he is demonstrating increased (I) for washing face, (B) UE and upper thighs. OT was going to progress pts bathing routine today for LE and nursing reported In the ICU we don't want pts bending or reaching forward. OT was unable to assess this at todays session. However, pt did demonstrate improved functional activity tolerance for dynamic movements and would benefit from continued skilled OT intervention for education and training for increased dressing and bathing routines. PLAN: Per POC. TREATMENT CODES/TIME: TAx1, 20 minutes EVA Dickson/Vanessa
--- NOTE | 2018-06-12 11:27 | W.PM.PROGNOT ---
Date of Service Date of service: 06/12/18 Time of Service: 11:28 Assessment and Plan (1) Leukocytosis: Start date: 06/12/18 Start time: 11:30 Current visit: Yes Status: Acute antibiotic changed poss ct to look for abscess to soon post op currently (2) Bandemia: Start date: 06/12/18 Start time: 11:30 Current visit: Yes Status: Acute serial bands have been increasing to currently 22 will cont to monitor but wioth the feculant nature of the abd drain concern for abscess and antibiotic were changed do not have IR capabilities here and may need transfer Subjective Interval history since last seen: pt wbc has increased and the one drain cont to be feculant. the bands have increased to 22 and was on invanz will switch to cipro/flagyl with increasing concerns for an intraabdominal abscess. Objective Objective Clinical Data: Abnormal lab results 06/12/18 06/12/18 Range/Units 07:50 07:50 WBC 17.72 H (4.4-10.8) k/cumm RBC 3.85 L (4.50-6.00) m/cumm Hgb 11.1 L (13.5-17.5) g/dL Hct 33.7 L (40.0-50.0) % RDW 15.7 H (11.8-14.1) % Absolute Neutrophils 13.64 H (1.2-6.7) k/cumm Absolute Monocytes 1.42 H (0.11-0.7) k/cumm Creatinine 0.57 L (0.70-1.30) mg/dL Glucose 131 H (70-100) mg/dL Calcium 8.1 L (8.5-10.1) mg/dL Total Protein 5.5 L (6.4-8.2) g/dL Albumin 1.3 L (3.4-5.0) g/dL Vital Signs Temperature 36.2 C L 06/12/18 04:22 Temperature Source Temporal Artery Scan 06/12/18 04:22 Pulse 92 H 06/12/18 08:33 Pulse Rhythm Regular 06/08/18 09:45 Pulse 98 H 06/12/18 09:00 Respiratory Rate 19 06/12/18 09:00 Respiratory Effort Non-Labored 06/11/18 23:57 Respiratory Depth Normal 06/11/18 23:57 Respiratory Pattern Normal 06/11/18 23:57 Blood Pressure 136/74 06/12/18 08:33 Blood Pressure Mean 85 06/12/18 08:33 Blood Pressure Position Supine 06/11/18 23:57 Pulse Oximetry 89 L 06/12/18 09:00 Respiratory End-tidal CO2 30 06/09/18 02:01 Oxygen Delivery Method Nasal Cannula 06/11/18 23:57 Oxygen Flow Rate 2 06/11/18 23:57 Fraction of Inspired Oxygen (FIO2) 21 06/10/18 14:00 Pain Level 7 06/11/18 23:57 Comment 06/08/18 10:24 Intake & Output 06/11/18 06/11/18 06/12/18 11:59 23:59 11:59 Intake Total 2213.5 / 5498.5 3285 / 5498.5 2300 / 2300 Output Total 1950 / 4875 2925 / 4875 1790 / 1790 Balance 263.5 / 623.5 360 / 623.5 510 / 510 Weight 114.3 kg Intake: IV 2143.5 / 5403.5 3260 / 5403.5 2300 / 2300 Oral 20 / 20 Injectate 50 / 75 25 / 75 Left Lower Distal Abdomen 50 / 75 25 / 75 Output: Gastric Drainage 375 / 850 475 / 850 800 / 800 Right Nare 375 / 850 475 / 850 800 / 800 Drainage 125 / 125 140 / 140 Lateral Abdomen 50 / 50 30 / 30 Medial Abdomen 75 / 75 110 / 110 Urine 1575 / 3725 2150 / 3725 850 / 850 Stool 175 / 175 Other: Urine Color Dark [place] Dark [place] Light [place] Urine Appearance Clear Clear Cloudy Comment nuñez to gravity nuñez to gravity Gastric Occult Blood Right Nare Negative Positive Positive Laboratory Results WBC 17.72 k/cumm (4.4-10.8) H 06/12/18 07:50 RBC 3.85 m/cumm (4.50-6.00) L 06/12/18 07:50 Hgb 11.1 g/dL (13.5-17.5) L 06/12/18 07:50 Hct 33.7 % (40.0-50.0) L 06/12/18 07:50 MCV 87.5 fL (80-95) 06/12/18 07:50 MCH 28.8 pg (27.0-33.0) 06/12/18 07:50 MCHC 32.9 g/dL (32.0-36.0) 06/12/18 07:50 RDW 15.7 % (11.8-14.1) H 06/12/18 07:50 Plt Count 314 x1000/uL (130-400) 06/12/18 07:50 MPV 9.2 fL (8.0-11.0) 06/12/18 07:50 Abs Immat Gran (auto) Cancelled 06/10/18 11:10 Immature Gran % See Differential 06/12/18 07:50 Neutrophils % 55.0 06/12/18 07:50 Lymphocytes % 8.0 06/12/18 07:50 Monocytes % 8.0 06/12/18 07:50 Eosinophils % 0.0 06/12/18 07:50 Basophils % 0.0 06/12/18 07:50 Absolute Neutrophils 13.64 k/cumm (1.2-6.7) H 06/12/18 07:50 Band Neutrophils 22.0 % 06/12/18 07:50 Absolute Lymphocytes 1.77 k/cumm (1.2-3.4) 06/12/18 07:50 Absolute Monocytes 1.42 k/cumm (0.11-0.7) H 06/12/18 07:50 Absolute Eosinophils 0.00 k/cumm (0.0-0.7) 06/12/18 07:50 Absolute Basophils 0.00 k/cumm (0.0-0.2) 06/12/18 07:50 Metamyelocytes 3.0 % 06/12/18 07:50 Myelocytes 2.0 % 06/12/18 07:50 Promyelocytes Cancelled 06/10/18 11:10 Nucleated RBCs Cancelled 06/10/18 11:10 Differential Comment Manual differential 06/12/18 07:50 Atypical Lymphocytes 2 06/12/18 07:50 Other Cell Type Cancelled 06/10/18 11:10 RBC Morphology Normal 06/12/18 07:50 Polychromasia Present 06/11/18 09:24 Hypochromasia Cancelled 06/10/18 11:10 Poikilocytosis Cancelled 06/10/18 11:10 Basophilic Stippling Present 06/11/18 09:24 Anisocytosis 1+ 06/09/18 06:15 Microcytosis Cancelled 06/10/18 11:10 Macrocytosis Cancelled 06/10/18 11:10 Spherocytes Cancelled 06/10/18 11:10 Target Cells Cancelled 06/10/18 11:10 Tear Drop Cells Cancelled 06/10/18 11:10 Ovalocytes Cancelled 06/10/18 11:10 Stomatocytes Cancelled 06/10/18 11:10 [place] Bodies Cancelled 06/10/18 11:10 Madhav Cells 2+ 06/10/18 13:20 Acanthocytes (Spur) 2+ 06/11/18 09:24 Schistocytes Cancelled 06/10/18 11:10 ESR 81 MM/HR (0-15) H 06/09/18 06:15 Sodium 141 mmol/L (136-145) 06/12/18 07:50 Potassium 3.7 mmol/L (3.5-5.1) 06/12/18 07:50 Chloride 104 mmol/L (98-107) 06/12/18 07:50 Carbon Dioxide 31.2 mmol/L (21.0-32.0) 06/12/18 07:50 Anion Gap 5.8 mmol/L (3-11) 06/12/18 07:50 BUN 18 mg/dL (7-18) 06/12/18 07:50 Creatinine 0.57 mg/dL (0.70-1.30) L 06/12/18 07:50 Estimated GFR/1.73 m2 >= 60.00 (mL/min/1.73m2) 06/12/18 07:50 Glucose 131 mg/dL (70-100) H 06/12/18 07:50 Calcium 8.1 mg/dL (8.5-10.1) L 06/12/18 07:50 Magnesium 2.0 mg/dL (1.8-2.4) 06/12/18 07:50 Total Bilirubin 0.8 mg/dL (0.2-1.0) 06/12/18 07:50 Conjugated Bilirubin 0.39 mg/dL (0.00-0.20) H 06/10/18 11:50 AST 37 U/L (15-37) 06/12/18 07:50 ALT 38 U/L (12-78) 06/12/18 07:50 Alkaline Phosphatase 83 U/L (46-116) 06/12/18 07:50 Creatine Kinase 149 U/L (39-308) 06/09/18 00:45 C-Reactive Protein > 25.00 mg/dL (0.0-0.3) H 06/09/18 06:15 Total Protein 5.5 g/dL (6.4-8.2) L 06/12/18 07:50 Albumin 1.3 g/dL (3.4-5.0) L 06/12/18 07:50
--- NOTE | 2018-06-12 14:26 | PDOC.CMPRO ---
- If Service Date Differs Date of service: 06/12/18 Time of Service: 14:26 Care Management Progress Note S/O: Hector was sleeping when CM visited this morning. At second visit, Hector is being woken by PT/OT for therapy. He is groggy and reports that he is having continual abdominal pain. Hector has a NG tube, nuñez catheter, and two drains. He is receiving TPN which he reportedly is tolerating well. Per MD report, Hector's abdominal drain is presenting concern for an intraabdominal abscess. A: 42 year old male admitted for colon stricture, anastamotic leak with resection, loop ileostomy. P: Hector will discharge home when medically ready per MD. Anticipate patient will discharge with new home health services (nursing for ostomy care) and follow up with surgical services. Hector will transport via private vehicle with his , Keli. will continue to offer support to patient, family, and care team regarding discharge planning and disposition.
--- NOTE | 2018-06-12 14:46 | ANES_ITS ---
Date of service: 06/12/18 Time of Service: 14:44 Anesthesia Note Report Anesthesia Note: POD 4. Patient assessed at bedside in ICU at 14:40. Patient is awake. Epidural dressing site dry and intact. Patient reporting pain control good with 2/10. Utilizing [employer] button less frequently. Patient has been up to beside chair x2 today, good motor and senory in bilateral lower extremities. Disucssed need to start decreasing epidural rate tomorrow.
[2018-06-12] MEDS: ACETAMINOPHEN 1,000 MG/100 ML BTL 100 MG IVPB (18:00)
--- NOTE | 2018-06-12 20:49 | PT.INTREAT ---
Date of service: 06/12/18 Time of Service: 09:20 PT Notes Inpatient Physical Therapy Treatment Note Date: 06/12/18 SUBJECTIVE: Hector states that he has been up since 4:00 this morning, and has been sitting up in the chair. He and his nurse report that he went for a short walk this morning within his room. OBJECTIVE: PAIN: Patient c/o pain in scrotal area with movement BED MOBILITY/TRANSFERS Supine-sit: Min A with HOB at 50 degrees Sit-stand: S Stand-sit: S GAIT Assistive Device: Bariatric FWW Weight bearing: WBAT Assist: SBA Distance: 50' x2 THEREX: Patient completed a LE strengthening program in a supine position, as per flow sheet. ASSESSMENT: Patient tolerated session with c/o pain in scrotal area with movement, as well as discomfort in abdomen with ther ex. Patient was able to tolerate a progression in gait distance with FWW support and SBA. He would benefit from continued gait and transfer training as well as strengthening, for improved mobility. PLAN: Continue with PT's POC TREATMENT CODE/TIME: 30 minutes; TA/TP
[2018-06-12] MEDS: Enoxaparin 40 MG/0.4 ML SYR SC (21:14)
[2018-06-12] MEDS: Normal Saline Flush 10 ML SYR IVP (21:14)
[2018-06-13] VITALS (36 sets, daily range): BP systolic 121–162; BP diastolic 67–83; PULSE 92–108; RESP 17–29; TEMP 36.5–36.8; O2SAT 89–95
[2018-06-13] MEDS: ACETAMINOPHEN 1,000 MG/100 ML BTL 400 MG IVPB (01:36)
[2018-06-13] MEDS: Normal Saline Flush 10 ML SYR IVP ×2 (02:18→12:00)
--- NOTE | 2018-06-13 06:07 | PGE_ITS ---
Date of Service Date of service: 06/13/18 Time of Service: 05:52 Assessment and Plan (1) H/O colectomy: Start date: 06/13/18 Start time: 05:58 Current visit: Yes Status: Acute ho leak with reoperation concern now of intrabdominal abscess vs leak due to drains, increased wbc and xray with lower and lateral free air none seen under the diaphragm antibiotics changed yesterday pt for ct this am with rectal contrast xrays and plan reviewed with radiologist (2) Bandemia: Start date: 06/13/18 Start time: 06:00 Current visit: Yes Status: Acute this has gotten progressively worse will need to do serial repeats (3) Leukocytosis: Start date: 06/13/18 Start time: 06:01 Current visit: Yes Status: Acute will need to repeat has worsened over the week (4) Abdominal distension: Start date: 06/13/18 Start time: 06:01 Current visit: Yes Status: Acute had evidence of fluid overload and did respond well to lasix jameson drain suggestive of intraabdominal abscess vs leak could explain his current condition (5) Peritoneal cavity free air: Start date: 06/13/18 Start time: 06:02 Current visit: Yes Status: Acute pt had upright and flat xray 06/11 when he became distended and a presumed dx of postop ileus was made radiology was reading intraperitoneal free air and we were unsure if was from recent or on 06/09 due to the physical, clinical and diagnostic results we will obtain a ct with rectal and oral contrast concern now is the possibility of an addition anastomotic leak and need to return to the or for addition exploratory lap Subjective Patient reports: other (abd distention, feculant drain outoput from jameson drain) Interval history since last seen: pt continues to have stool out of the ROSS drain, increasing wbc and bands, concern that the air seen on xray 2 days ago was not post op and will get ct with rectal and oral contrast to ro anastomotic leak Exam GI Inspection: distended and incision Palpation: tender Percussion: dullness to percussion Auscultation: abnormal bowel sounds Abdomen image: 1. operative incision 2. loop ileostomy 3. Jameson drain subcut wound 4. pelvic drain Objective Objective Clinical Data: Abnormal lab results 06/12/18 06/12/18 Range/Units 07:50 07:50 WBC 17.72 H (4.4-10.8) k/cumm RBC 3.85 L (4.50-6.00) m/cumm Hgb 11.1 L (13.5-17.5) g/dL Hct 33.7 L (40.0-50.0) % RDW 15.7 H (11.8-14.1) % Absolute Neutrophils 13.64 H (1.2-6.7) k/cumm Absolute Monocytes 1.42 H (0.11-0.7) k/cumm Creatinine 0.57 L (0.70-1.30) mg/dL Glucose 131 H (70-100) mg/dL Calcium 8.1 L (8.5-10.1) mg/dL Total Protein 5.5 L (6.4-8.2) g/dL Albumin 1.3 L (3.4-5.0) g/dL Vital Signs Temperature 36.5 C 06/13/18 01:09 Temperature Source Temporal Artery Scan 06/12/18 20:45 Pulse 93 H 06/13/18 01:09 Pulse Rhythm Regular 06/08/18 09:45 Pulse 95 H 06/13/18 03:00 Respiratory Rate 20 06/13/18 03:00 Respiratory Effort Short of Breath 06/13/18 01:09 Respiratory Depth Shallow 06/13/18 01:09 Respiratory Pattern Normal 06/13/18 01:09 Blood Pressure 121/69 06/13/18 01:09 Blood Pressure Mean 86 06/13/18 01:09 Blood Pressure Position Sitting 06/12/18 20:45 Pulse Oximetry 93 L 06/13/18 03:00 Respiratory End-tidal CO2 30 06/09/18 02:01 Oxygen Delivery Method Room Air 06/13/18 01:09 Oxygen Flow Rate 0 06/13/18 01:09 Fraction of Inspired Oxygen (FIO2) 21 06/10/18 14:00 Pain Level 4 06/13/18 01:09 Comment 06/08/18 10:24 Intake & Output 06/12/18 06/12/18 06/13/18 11:59 23:59 11:59 Intake Total 2405 / 4220 1815 / 4220 150 / 150 Output Total 1790 / 4030 2240 / 4030 900 / 900 Balance 615 / 190 -425 / 190 -750 / -750 Intake: IV 2400 / 4120 1720 / 4120 150 / 150 Oral 5 / 25 20 / 25 Injectate 75 / 75 Medial Abdomen 75 / 75 Output: Gastric Drainage 800 / 1300 500 / 1300 900 / 900 Right Nare 800 / 1300 500 / 1300 900 / 900 Drainage 140 / 205 65 / 205 Lateral Abdomen 30 / 70 40 / 70 Medial Abdomen 110 / 135 25 / 135 Urine 850 / 2325 1475 / 2325 Stool 200 / 200 Other: Urine Color Light Radha Dark Radha Urine Appearance Cloudy Clear Comment Donis catheter to gravity draining cloudy light radha urine. pH of 7.5, Large amt of blood and SG of 1.015 per chemstrip. Donis catheter to gravity Donis catheter to gravity Stool Occult Blood Positive Gastric Occult Blood Right Nare Positive Positive Positive Laboratory Results WBC 17.72 k/cumm (4.4-10.8) H 06/12/18 07:50 RBC 3.85 m/cumm (4.50-6.00) L 06/12/18 07:50 Hgb 11.1 g/dL (13.5-17.5) L 06/12/18 07:50 Hct 33.7 % (40.0-50.0) L 06/12/18 07:50 MCV 87.5 fL (80-95) 06/12/18 07:50 MCH 28.8 pg (27.0-33.0) 06/12/18 07:50 MCHC 32.9 g/dL (32.0-36.0) 06/12/18 07:50 RDW 15.7 % (11.8-14.1) H 06/12/18 07:50 Plt Count 314 x1000/uL (130-400) 06/12/18 07:50 MPV 9.2 fL (8.0-11.0) 06/12/18 07:50 Abs Immat Gran (auto) Cancelled 06/10/18 11:10 Immature Gran % See Differential 06/12/18 07:50 Neutrophils % 55.0 06/12/18 07:50 Lymphocytes % 8.0 06/12/18 07:50 Monocytes % 8.0 06/12/18 07:50 Eosinophils % 0.0 06/12/18 07:50 Basophils % 0.0 06/12/18 07:50 Absolute Neutrophils 13.64 k/cumm (1.2-6.7) H 06/12/18 07:50 Band Neutrophils 22.0 % 06/12/18 07:50 Absolute Lymphocytes 1.77 k/cumm (1.2-3.4) 06/12/18 07:50 Absolute Monocytes 1.42 k/cumm (0.11-0.7) H 06/12/18 07:50 Absolute Eosinophils 0.00 k/cumm (0.0-0.7) 06/12/18 07:50 Absolute Basophils 0.00 k/cumm (0.0-0.2) 06/12/18 07:50 Metamyelocytes 3.0 % 06/12/18 07:50 Myelocytes 2.0 % 06/12/18 07:50 Promyelocytes Cancelled 06/10/18 11:10 Nucleated RBCs Cancelled 06/10/18 11:10 Differential Comment Manual differential 06/12/18 07:50 Atypical Lymphocytes 2 06/12/18 07:50 Other Cell Type Cancelled 06/10/18 11:10 RBC Morphology Normal 06/12/18 07:50 Polychromasia Present 06/11/18 09:24 Hypochromasia Cancelled 06/10/18 11:10 Poikilocytosis Cancelled 06/10/18 11:10 Basophilic Stippling Present 06/11/18 09:24 Anisocytosis 1+ 06/09/18 06:15 Microcytosis Cancelled 06/10/18 11:10 Macrocytosis Cancelled 06/10/18 11:10 Spherocytes Cancelled 06/10/18 11:10 Target Cells Cancelled 06/10/18 11:10 Tear Drop Cells Cancelled 06/10/18 11:10 Ovalocytes Cancelled 06/10/18 11:10 Stomatocytes Cancelled 06/10/18 11:10 [place] Bodies Cancelled 06/10/18 11:10 [place] Cells 2+ 06/10/18 13:20 Acanthocytes (Spur) 2+ 06/11/18 09:24 Schistocytes Cancelled 06/10/18 11:10 ESR 81 MM/HR (0-15) H 06/09/18 06:15 Sodium 141 mmol/L (136-145) 06/12/18 07:50 Potassium 3.7 mmol/L (3.5-5.1) 06/12/18 07:50 Chloride 104 mmol/L (98-107) 06/12/18 07:50 Carbon Dioxide 31.2 mmol/L (21.0-32.0) 06/12/18 07:50 Anion Gap 5.8 mmol/L (3-11) 06/12/18 07:50 BUN 18 mg/dL (7-18) 06/12/18 07:50 Creatinine 0.57 mg/dL (0.70-1.30) L 06/12/18 07:50 Estimated GFR/1.73 m2 >= 60.00 (mL/min/1.73m2) 06/12/18 07:50 Glucose 131 mg/dL (70-100) H 06/12/18 07:50 Calcium 8.1 mg/dL (8.5-10.1) L 06/12/18 07:50 Magnesium 2.0 mg/dL (1.8-2.4) 06/12/18 07:50 Total Bilirubin 0.8 mg/dL (0.2-1.0) 06/12/18 07:50 Conjugated Bilirubin 0.39 mg/dL (0.00-0.20) H 06/10/18 11:50 AST 37 U/L (15-37) 06/12/18 07:50 ALT 38 U/L (12-78) 06/12/18 07:50 Alkaline Phosphatase 83 U/L (46-116) 06/12/18 07:50 Creatine Kinase 149 U/L (39-308) 06/09/18 00:45 C-Reactive Protein > 25.00 mg/dL (0.0-0.3) H 06/09/18 06:15 Total Protein 5.5 g/dL (6.4-8.2) L 06/12/18 07:50 Albumin 1.3 g/dL (3.4-5.0) L 06/12/18 07:50
[2018-06-13] MEDS: Alteplase 2 MG VIAL IJ (07:19)
[2018-06-13 07:41] LABS: Abs Immature Grans 1.02 k/cumm (0.0-0.09); HCT 32.4 % (40.0-50.0); HGB 10.9 g/dL (13.5-17.5); Mean Corp. HGB Concentration 33.6 g/dL (32.0-36.0); Mean Corpuscular Hemoglobin 29.3 pg (27.0-33.0); Mean Corpuscular Volume 87.1 fL (80-95); Mean Platelet Volume 9.2 fL (8.0-11.0); Platelet Count 413 x1000/uL (130-400); RBC 3.72 m/cumm (4.50-6.00); RBC Distribution Width 15.5 % (11.8-14.1)
[2018-06-13 07:50] LABS: Anion Gap 4.6 mmol/L (3-11); BUN 17 mg/dL (7-18); CO2 32.4 mmol/L (21.0-32.0); CREATININE 0.75 mg/dL (0.70-1.30); Calcium 8.2 mg/dL (8.5-10.1); Chloride 103 mmol/L (98-107); Glucose 132 mg/dL (70-100); Potassium 3.8 mmol/L (3.5-5.1); Sodium 140 mmol/L (136-145)
--- NOTE | 2018-06-13 07:59 | OT.INNT ---
Date of service: 06/13/18 Time of Service: 07:59 Occupational Therapy Notes 06/13/18 Per recommendation and possible abscess in pts abdomen, skilled OT services will be on hold for today. If pt undergoes surgery, OT will need new referral. Cora Lees, OTR/L
[2018-06-13 08:07] LABS: Absolute Eosinophil Count 0.14 k/cumm (0.0-0.7); Absolute Lymphocyte Count 0.96 k/cumm (1.2-3.4); Absolute Monocyte Count 0.96 k/cumm (0.11-0.7); Absolute Neutrophil Count 10.82 k/cumm (1.2-6.7); Atypical Lymphocytes % 2
[2018-06-13 08:08] LABS: Diff Comment Manual Differential; Polychromasia Present
--- NOTE | 2018-06-13 08:33 | PT.INNT ---
Date of service: 06/13/18 Time of Service: 08:33 PT Notes PHYSICAL THERAPY NOTE 06/13/18 Spoke with nursing, pt may have abcess and may be having surgical intervention today. HOLD PT due to medical complications. If patient has surgery, will need to D/C PT Services and will need new PT Consult orders post operatively when patient is medically stable and able to participate in therapy sessions. Elsa Barboza PT
[2018-06-13] MEDS: CIPROFLOXACIN 400 MG/200 ML BAG 200 MG IVPB (08:41)
--- NOTE | 2018-06-13 09:47 | DI.CT_ITS ---
SYMPTOM/DIAGNOSIS: ? ANASTOMOTIC LEAK CT ABDOMEN AND PELVIS: An ovoid left lateral abdominal and lower abdominal, superior pelvic well circumscribed mass measures up to as much as 20 cm in length and up to as much as 4 cm in transverse diameter. These measurements made on the coronal images. On the transaxial images the AP diameter of this extraluminal collection measures up to a maximum of 12.2 cm. The transverse diameter maximum approaches 6.2 cm. The study was carried out with injection of 100 cc Omnipaque 350. Fatty infiltration of the liver. The gallbladder is intact. No intrinsic pancreatic abnormality is seen. Splenic fluid is identified and an air fluid level is noted anteriorly. Again noted are scattered gas bubbles in the mesentery and free air identified anteriorly in the abdomen. Left lower quadrant drainage catheters are also seen. Nasogastric tube noted in place. CONCLUSION: Findings consistent with gross leakage of bowel contents in to the peritoneal cavity, presumably at the rectosigmoid anastomotic site. Please see above discussion for further description.
[2018-06-13] MEDS: Omnipaque 350 MG/ML 100 ML BTL IJ (09:57)
--- NOTE | 2018-06-13 10:20 | W.PM.DS.N ---
Date of service: 06/13/18 Time of Service: 10:21 DS: Diagnosis Discharge Diagnosis (1) H/O colectomy: Status: Acute (2) Leukocytosis: Status: Acute (3) Anastomotic leak of intestine: Status: Acute (4) H/O exploratory laparotomy: Status: Acute Discharge Plan Disposition Patient Disposition: [facility] Condition: Serious Discharge Details Reason For Visit: Anastamotic leak Admit Date/Time: 06/04/18 05:54 Admit Provider: Sy Gibbons Attending Provider: Sy Gibbons [facility] Hospital Course: Mr. Farfan is a 42-year-old gentleman who was seen in the office with a stricture in his sigmoid Colon. After a bout of severe diverticulitis. He had had a flexible sigmoidoscopy and the scope was able to pass but it was very tight. There was a lot of stool above the stricture. The patient was taken to surgery on June 04 for a laparoscopic hand-assisted sigmoid colectomy with stapled anastomosis. He had an ileus for 2 days. On postop day 3 he started to pass a small amount of flatus but was still complaining of quite a bit of tightness in his abdomen so he was left n.p.o. with only ice chips. On postop day #4 he was noted to be more tachycardic still afebrile but his labs also showed a bandemia. His ROSS drain which was left next to the anastomosis, was draining feculent drainage. He was started on Invanz for antibiotic coverage. He did have a PICC line placed on the right side. On postop day number 4 (06/08/18) in the evening patient became more tachycardic and an X-ray was done which showed free air and return to surgery was recommended. The anastomosis was redone and a diverting ileostomy was created. Postop day #1 after his second surgery patient had a run of V. tach which he was asymptomatic with. He also was noted to have some mild malnutrition as he had not been eating since before surgery due to the stricture. TPN was started. On 06/11/18 the patient developed abdominal distention and abdominal x-ray was done and an NG tube was placed. NG tube had copious amount of return. He was also felt to be fluid overloaded so he was given some Lasix. X-ray showed some air in the left gutter no air under the diaphragm. On 06/12/18 the ROSS drain started to look more feculent again. Patient was not tachycardic at that point. Later that evening I saw the patient for the first time ROSS drainage was putting out feculent material. Patient had a higher white count again as well as a 22% bandemia. Antibiotics were switched to Cipro and Flagyl from [facility]. At this point it was late in the evening and patient was stable. He basically had a fistula with the drain, so plan was made for a CT scan in the morning with rectal contrast to confirm that he more than likely had another leak. 06/13-CT scan confirmed leak from the colorectal anastomosis. Also new today the drain that was placed in the subcutaneous tissue at the incision side also was starting to look feculent. Plan was to take the patient back to surgery for another exploratory laparotomy takedown of the anastomosis and colostomy creation. The plan was discussed with the patient and his family at his side. Patient requested transfer to [facility] to have surgery done there. Case was discussed with Dr. Chairez at [facility] and he accepted the patient in transfer. He has gotten his morning dose of Cipro he is getting his Flagyl as we speak. Because the patient will be transported by ambulance they do not want the epidural running. The epidural has been in for about 5 days so it will be removed by anesthesia. I will give the patient Fentanyl IV as needed while we wait for him to get transported and also during transport. TPN will be stopped and I will place the patient on D5 half-normal saline at 50 cc an hour and lactated Ringer's at 75 cc an hour. The patient does have a PICC line in the right arm. Only one port is currently working. Unfortunately one of the ports is still not working even after using Alteplase. He has an 18-gauge needle in his left AC for transport as well. Patient will be sent with his CPAP machine CT scan and x-rays have all been pushed down to [facility]. If there is need to contact me after the patient gets down to [facility] my pager number is [phone] (Dr. Kirti Johnston MD) Home Meds and New Rx's Prescriptions: New diphenhydramine HCl 50 mg/mL Solution 25 mg IVP Q6H PRN PRN (Reason: Persistent pruritis face/trunk) Qty: 25 RF: 0 enoxaparin [Lovenox] 40 mg/0.4 mL Syringe 40 mg subcut Q24H Qty: 0.4 RF: 0 ondansetron HCl (PF) 4 mg/2 mL Solution 4 mg IVP Q6H PRN PRN (Reason: nausea and vomiting) Qty: 2 RF: 0 ondansetron HCl (PF) 4 mg/2 mL Solution 4 mg IVP Q6H PRN PRN (Reason: Nausea) Qty: 2 RF: 0 ranitidine HCl 50 mg/2 mL (25 mg/mL) Solution 50 mg IVP Q12H Qty: 2 RF: 0 Cepacol Sore Throat (genesis-men) 15-3.6 mg Lozenge 1 royce SUC Q6H PRN PRN (Reason: sore throat) Qty: 16 RF: 0 ciprofloxacin in 5 % dextrose 400 mg/200 mL piggyback 400 mg IV Q12H Qty: 200 RF: 0 metronidazole in NaCl (iso-os) 500 mg/100 mL piggyback 500 mg IV Q8H Qty: 100 RF: 0 Continued ibuprofen [Advil] 200 mg tablet 800 mg PO QID PRNRF: 0 acetaminophen [Tylenol Arthritis Pain] 650 mg Tablet Extended Release 650 mg PO Q8H PRN PRNRF: 0 eimbybko-ynk-fkvlg-vit K-lycop [Men's 50 Plus Multivitamin] 400-20-370 mcg Tablet 1 tab PO DAILY RF: 0 Discontinued erythromycin 500 mg tablet 1 gm PO .COMPLEX Qty: 6 RF: 0 bisacodyl [Dulcolax (bisacodyl)] 5 mg tablet,delayed release (DR/EC) 10 mg PO BID Qty: 4 RF: 0 polyethylene glycol 3350 [Miralax] 17 gram/dose powder 255 gm PO ONCE Qty: 255 RF: 0 neomycin 500 mg tablet 1 gm PO .COMPLEX Qty: 6 RF: 0 polyethylene glycol 3350 [ClearLax] 17 gram/dose Powder 1 dose PO BID RF: 0 Discharge Instructions Activity:: bed rest Diet:: NPO Discharge Orders Discharge Orders: Discharge Order (Routine); Ordered 06/13/18 Ordered By: Tootie Johnston Discharge Data Discharge Date/Time-TO BE ENTERED AT DEPARTURE: 06/13/18 12:30 Discharge Comment: Transferred to [facility] via [facility]. Exam Resp Effort & Inspection: normal respiratory effort Auscultation: diminished lung sounds bilaterally in the lower lung man Cardio Rate: tachycardic Rhythm: regular rhythm Heart Sounds: no gallops, no murmurs and no rubs GI Inspection: edema Palpation: tender (throughout) Auscultation: absent bowel sounds Other: ROSS drains with feculent discharge Drain A is in the subcutaneous tissue of the wound Drain B is in the pelvis Male General Exam: Yes edema bilaterally Other: Donis in place- placed 06/08 DS: Data Vitals/I&O Vitals and I&O: Vital Signs Temperature 97.7 F 06/13/18 01:09 Temperature Source Temporal Artery Scan 06/12/18 20:45 Pulse 93 H 06/13/18 01:09 Pulse Rhythm Regular 06/08/18 09:45 Pulse 95 H 06/13/18 03:00 Respiratory Rate 20 06/13/18 03:00 Respiratory Effort Short of Breath 06/13/18 01:09 Respiratory Depth Shallow 06/13/18 01:09 Respiratory Pattern Normal 06/13/18 01:09 Blood Pressure 121/69 06/13/18 01:09 Blood Pressure Mean 86 06/13/18 01:09 Blood Pressure Position Sitting 06/12/18 20:45 Pulse Oximetry 93 L 06/13/18 03:00 Respiratory End-tidal CO2 30 06/09/18 02:01 Oxygen Delivery Method Room Air 06/13/18 01:09 Oxygen Flow Rate 0 06/13/18 01:09 Fraction of Inspired Oxygen (FIO2) 21 06/10/18 14:00 Pain Level 4 06/13/18 01:09 Comment 06/08/18 10:24 Intake & Output 06/12/18 06/12/18 06/13/18 11:59 23:59 11:59 Intake Total 2405 / 4220 1815 / 4220 173.333 / 173.333 Output Total 1790 / 4030 2240 / 4030 1140 / 1140 Balance 615 / 190 -425 / 190 -966.667 / -966.667 Intake: IV 2400 / 4120 1720 / 4120 173.333 / 173.333 Oral 5 / 25 20 / 25 Injectate 75 / 75 Medial Abdomen 75 / 75 Output: Gastric Drainage 800 / 1300 500 / 1300 900 / 900 Right Nare 800 / 1300 500 / 1300 900 / 900 Drainage 140 / 205 65 / 205 Lateral Abdomen 30 / 70 40 / 70 Medial Abdomen 110 / 135 25 / 135 Urine 850 / 2325 1475 / 2325 Stool 200 / 200 240 / 240 Other: Urine Color Light Radha Dark Radha Urine Appearance Cloudy Clear Comment Donis catheter to gravity draining cloudy light radha urine. pH of 7.5, Large amt of blood and SG of 1.015 per chemstrip. Donis catheter to gravity Donis catheter to gravity Stool Occult Blood Positive Gastric Occult Blood Right Nare Positive Positive Positive Labs on day of discharge: Labs from last 24 hours 06/13/18 06/13/18 06/13/18 07:29 07:29 06:04 WBC 13.70 H Cancelled RBC 3.72 L Cancelled Hgb 10.9 L Cancelled Hct 32.4 L Cancelled MCV 87.1 Cancelled MCH 29.3 Cancelled MCHC 33.6 Cancelled RDW 15.5 H Cancelled Plt Count 413 H Cancelled MPV 9.2 Cancelled Immature Gran % See Differential Neutrophils % 71.0 Lymphocytes % 5.0 Monocytes % 7.0 Eosinophils % 1.0 Basophils % 0.0 Absolute Neutrophils 10.82 H Band Neutrophils 8.0 Absolute Lymphocytes 0.96 L Absolute Monocytes 0.96 H Absolute Eosinophils 0.14 Absolute Basophils 0.00 Metamyelocytes 2.0 Myelocytes 4.0 Differential Comment Manual differential Atypical Lymphocytes 2 RBC Morphology See below Polychromasia Present Sodium 140 Potassium 3.8 Chloride 103 Carbon Dioxide 32.4 H Anion Gap 4.6 BUN 17 Creatinine 0.75 Estimated GFR/1.73 m2 >= 60.00 Glucose 132 H Calcium 8.2 L 06/13/18 05:54 WBC RBC Hgb Hct MCV MCH MCHC RDW Plt Count MPV Immature Gran % Neutrophils % Lymphocytes % Monocytes % Eosinophils % Basophils % Absolute Neutrophils Band Neutrophils Absolute Lymphocytes Absolute Monocytes Absolute Eosinophils Absolute Basophils Metamyelocytes Myelocytes Differential Comment Atypical Lymphocytes RBC Morphology Polychromasia Sodium Cancelled Potassium Cancelled Chloride Cancelled Carbon Dioxide Cancelled Anion Gap Cancelled BUN Cancelled Creatinine Cancelled Estimated GFR/1.73 m2 Cancelled Glucose Cancelled Calcium [facility]ancelled [facility] History Anastomotic leak of intestine (Acute) Nausea (Acute) Fluid overload (Acute) Abdominal distension (Acute) Postoperative ileus (Acute) V-tach (Chronic) Sleep apnea (Chronic) Surgical History H/O exploratory laparotomy (Acute ~06/08/18) H/O colectomy (Acute 06/04/18) H/O left knee surgery (Resolved) Social History Smoking/Tobacco Use Status: Former Tobacco Use alcohol intake: current alcohol intake frequency: 0-2 drinks per day Alcohol type: beer substance use type: does not use
--- NOTE | 2018-06-13 10:24 | DSE_ITS ---
Date of service: 06/13/18 Time of Service: 10:21 DS: Diagnosis Discharge Diagnosis (1) H/O colectomy: Status: Acute (2) Leukocytosis: Status: Acute (3) Anastomotic leak of intestine: Status: Acute (4) H/O exploratory laparotomy: Status: Acute Discharge Plan Disposition Patient Disposition: [facility] Condition: Serious Discharge Details Reason For Visit: Anastamotic leak Admit Date/Time: 06/04/18 05:54 Admit Provider: Sy Gibbons Attending Provider: Sy Gibbons [facility] Course: Mr. Farfan is a 42-year-old gentleman who was seen in the office with a stricture in his sigmoid Colon. After a bout of severe diverticulitis. He had had a flexible sigmoidoscopy and the scope was able to pass but it was very tight. There was a lot of stool above the stricture. The patient was taken to surgery on June 04 for a laparoscopic hand-assisted sigmoid colectomy with stapled anastomosis. He had an ileus for 2 days. On postop day 3 he started to pass a small amount of flatus but was still complaining of quite a bit of tightness in his abdomen so he was left n.p.o. with only ice chips. On postop day #4 he was noted to be more tachycardic still afebrile but his labs also showed a bandemia. His ROSS drain which was left next to the anastomosis, was draining feculent drainage. He was started on Invanz for antibiotic coverage. He did have a PICC line placed on the right side. On postop day number 4 (06/08/18) in the evening patient became more tachycardic and an X-ray was done which showed free air and return to surgery was recommended. The anastomosis was redone and a diverting ileostomy was created. Postop day #1 after his second surgery patient had a run of V. tach which he was asymptomatic with. He also was noted to have some mild malnutrition as he had not been eating since before surgery due to the stricture. TPN was started. On 06/11/18 the patient developed abdominal distention and abdominal x-ray was done and an NG tube was placed. NG tube had copious amount of return. He was also felt to be fluid overloaded so he was given some Lasix. X-ray showed some air in the left gutter no air under the diaphragm. On 06/12/18 the ROSS drain started to look more feculent again. Patient was not tachycardic at that point. Later that evening I saw the patient for the first time ROSS drainage was putting out feculent material. Patient had a higher white count again as well as a 22% bandemia. Antibiotics were switched to Cipro and Flagyl from [facility]. At this point it was late in the evening and patient was stable. He basically had a fistula with the drain, so plan was made for a CT scan in the morning with rectal contrast to confirm that he more than likely had another leak. 06/13-CT scan confirmed leak from the colorectal anastomosis. Also new today the drain that was placed in the subcutaneous tissue at the incision side also was starting to look feculent. Plan was to take the patient back to surgery for another exploratory laparotomy takedown of the anastomosis and colostomy creation. The plan was discussed with the patient and his family at his side. Patient requested transfer to [facility] to have surgery done there. Case was discussed with Dr. Chairez at [facility] and he accepted the patient in transfer. He has gotten his morning dose of Cipro he is getting his Flagyl as we speak. Because the patient will be transported by ambulance they do not want the epidural running. The epidural has been in for about 5 days so it will be removed by anesthesia. I will give the patient Fentanyl IV as needed while we wait for him to get transported and also during transport. TPN will be stopped and I will place the patient on D5 half-normal saline at 50 cc an hour and lactated Ringer's at 75 cc an hour. The patient does have a PICC line in the right arm. Only one port is currently working. Unfortunately one of the ports is still not working even after using A lteplase. He has an 18-gauge needle in his left AC for transport as well. Patient will be sent with his CPAP machine CT scan and x-rays have all been pushed down to [facility]. If there is need to contact me after the patient gets down to [facility] my pager number is [phone] (Dr. Kirti Johnston MD) Home Meds and New Rx's Prescriptions: New diphenhydramine HCl 50 mg/mL Solution 25 mg IVP Q6H PRN PRN (Reason: Persistent pruritis face/trunk) Qty: 25 RF: 0 enoxaparin [Lovenox] 40 mg/0.4 mL Syringe 40 mg subcut Q24H Qty: 0.4 RF: 0 ondansetron HCl (PF) 4 mg/2 mL Solution 4 mg IVP Q6H PRN PRN (Reason: nausea and vomiting) Qty: 2 RF: 0 ondansetron HCl (PF) 4 mg/2 mL Solution 4 mg IVP Q6H PRN PRN (Reason: Nausea) Qty: 2 RF: 0 ranitidine HCl 50 mg/2 mL (25 mg/mL) Solution 50 mg IVP Q12H Qty: 2 RF: 0 Cepacol Sore Throat (genesis-men) 15-3.6 mg Lozenge 1 royce SUC Q6H PRN PRN (Reason: sore throat) Qty: 16 RF: 0 ciprofloxacin in 5 % dextrose 400 mg/200 mL piggyback 400 mg IV Q12H Qty: 200 RF: 0 metronidazole in NaCl (iso-os) 500 mg/100 mL piggyback 500 mg IV Q8H Qty: 100 RF: 0 Continued ibuprofen [Advil] 200 mg tablet 800 mg PO QID PRNRF: 0 acetaminophen [Tylenol Arthritis Pain] 650 mg Tablet Extended Release 650 mg PO Q8H PRN PRNRF: 0 hljaatyf-qnu-lpuji-vit K-lycop [Men's 50 Plus Multivitamin] 400-20-370 mcg Tablet 1 tab PO DAILY RF: 0 Discontinued erythromycin 500 mg tablet 1 gm PO .COMPLEX Qty: 6 RF: 0 bisacodyl [Dulcolax (bisacodyl)] 5 mg tablet,delayed release (DR/EC) 10 mg PO BID Qty: 4 RF: 0 polyethylene glycol 3350 [Miralax] 17 gram/dose powder 255 gm PO ONCE Qty: 255 RF: 0 neomycin 500 mg tablet 1 gm PO .COMPLEX Qty: 6 RF: 0 polyethylene glycol 3350 [ClearLax] 17 gram/dose Powder 1 dose PO BID RF: 0 Discharge Instructions Activity:: bed rest Diet:: NPO Discharge Orders Discharge Orders: Discharge Order (Routine); Ordered 06/13/18 Ordered By: Tootie Johnston Discharge Data Discharge Date/Time-TO BE ENTERED AT DEPARTURE: 06/13/18 12:30 Discharge Comment: [place] [facility] [place] [facility] Exam Resp Effort & Inspection: normal respiratory effort Auscultation: diminished lung sounds bilaterally in the lower lung man Cardio Rate: tachycardic Rhythm: regular rhythm Heart Sounds: no gallops, no murmurs and no rubs GI Inspection: edema Palpation: tender (throughout) Auscultation: absent bowel sounds Other: ROSS drains with feculent discharge Drain A is in the subcutaneous tissue of the wound Drain B is in the pelvis Male General Exam: Yes edema bilaterally Other: Donis in place- placed 06/08 DS: Data Vitals/I&O Vitals and I&O: Vital Signs Temperature 97.7 F 06/13/18 01:09 Temperature Source Temporal Artery Scan 06/12/18 20:45 Pulse 93 H 06/13/18 01:09 Pulse Rhythm Regular 06/08/18 09:45 Pulse 95 H 06/13/18 03:00 Respiratory Rate 20 06/13/18 03:00 Respiratory Effort Short of Breath 06/13/18 01:09 Respiratory Depth Shallow 06/13/18 01:09 Respiratory Pattern Normal 06/13/18 01:09 Blood Pressure 121/69 06/13/18 01:09 Blood Pressure Mean 86 06/13/18 01:09 Blood Pressure Position Sitting 06/12/18 20:45 Pulse Oximetry 93 L 06/13/18 03:00 Respiratory End-tidal CO2 30 06/09/18 02:01 Oxygen Delivery Method Room Air 06/13/18 01:09 Oxygen Flow Rate 0 06/13/18 01:09 Fraction of Inspired Oxygen (FIO2) 21 06/10/18 14:00 Pain Level 4 06/13/18 01:09 Comment 06/08/18 10:24 Intake & Output 06/12/18 06/12/18 06/13/18 11:59 23:59 11:59 Intake Total 2405 / 4220 1815 / 4220 173.333 / 173.333 Output Total 1790 / 4030 2240 / 4030 1140 / 1140 Balance 615 / 190 -425 / 190 -966.667 / -966.667 Intake: IV 2400 / 4120 1720 / 4120 173.333 / 173.333 Oral 5 / 25 20 / 25 Injectate 75 / 75 Medial Abdomen 75 / 75 Output: Gastric Drainage 800 / 1300 500 / 1300 900 / 900 Right Nare 800 / 1300 500 / 1300 900 / 900 Drainage 140 / 205 65 / 205 Lateral Abdomen 30 / 70 40 / 70 Medial Abdomen 110 / 135 25 / 135 Urine 850 / 2325 1475 / 2325 Stool 200 / 200 240 / 240 Other: Urine Color Light Radha Dark Radha Urine Appearance Cloudy Clear Comment Donis catheter to gravity draining cloudy light radha urine. pH of 7.5, Large amt of blood and SG of 1.015 per chemstrip. Donis catheter to gravity Donis catheter to gravity Stool Occult Blood Positive Gastric Occult Blood Right Nare Positive Positive Positive Labs on day of discharge: Labs from last 24 hours 06/13/18 06/13/18 06/13/18 07:29 07:29 06:04 WBC 13.70 H Cancelled RBC 3.72 L Cancelled Hgb 10.9 L Cancelled Hct 32.4 L Cancelled MCV 87.1 Cancelled MCH 29.3 Cancelled MCHC 33.6 Cancelled RDW 15.5 H Cancelled Plt Count 413 H Cancelled MPV 9.2 Cancelled Immature Gran % See Differential Neutrophils % 71.0 Lymphocytes % 5.0 Monocytes % 7.0 Eosinophils % 1.0 Basophils % 0.0 Absolute Neutrophils 10.82 H Band Neutrophils 8.0 Absolute Lymphocytes 0.96 L Absolute Monocytes 0.96 H Absolute Eosinophils 0.14 Absolute Basophils 0.00 Metamyelocytes 2.0 Myelocytes 4.0 Differential Comment Manual differential Atypical Lymphocytes 2 RBC Morphology See below Polychromasia Present Sodium 140 Potassium 3.8 Chloride 103 Carbon Dioxide 32.4 H Anion Gap 4.6 BUN 17 Creatinine 0.75 Estimated GFR/1.73 m2 >= 60.00 Glucose 132 H Calcium 8.2 L 06/13/18 05:54 WBC RBC Hgb Hct MCV MCH MCHC RDW Plt Count MPV Immature Gran % Neutrophils % Lymphocytes % Monocytes % Eosinophils % Basophils % Absolute Neutrophils Band Neutrophils Absolute Lymphocytes Absolute Monocytes Absolute Eosinophils Absolute Basophils Metamyelocytes Myelocytes Differential Comment Atypical Lymphocytes RBC Morphology Polychromasia Sodium Cancelled Potassium Cancelled Chloride Cancelled Carbon Dioxide Cancelled Anion Gap Cancelled BUN Cancelled Creatinine Cancelled Estimated GFR/1.73 m2 Cancelled Glucose Cancelled Calcium Cancelled [facility] Medical History Anastomotic leak of intestine (Acute) Nausea (Acute) Fluid overload (Acute) Abdominal distension (Acute) Postoperative ileus (Acute) V-tach (Chronic) Sleep apnea (Chronic) Surgical History H/O exploratory laparotomy (Acute ~06/08/18) H/O colectomy (Acute 06/04/18) H/O left knee surgery (Resolved) Social History Smoking/Tobacco Use Status: Former Tobacco Use alcohol intake: current alcohol intake frequency: 0-2 drinks per day Alcohol type: beer substance use type: does not use
[2018-06-13] MEDS: Alteplase 2 MG VIAL (10:32)
--- NOTE | 2018-06-13 10:47 | PDOC.CMPRO ---
- If Service Date Differs Date of service: 06/13/18 Time of Service: 10:48 Care Management Progress Note S/O: CM met with colby Dickey, Hector is in PACU awaiting return to surgery. Keli is tearful she would like Hector to be transferred to [facility] she states that he needs to be in a larger hospital. CM offered support to family and brought them to meet with Hector in PACU. After spouse met with provider plan is transfer patient to [facility]. A: 42 year old male admitted for colon stricture, anastomotic leak with resection, loop ileostomy. P: Hector is being transferred to [facility] awaiting bed availability. He will transfer via ambulance coordinated by the ICU and nursing digital account supervisor. Family is aware of the transfer. CM offered ongoing support to patient and family.
--- NOTE | 2018-06-13 10:59 | CMPROGNOTE_ITS ---
- If Service Date Differs Date of service: 06/13/18 Time of Service: 10:48 Care Management Progress Note S/O: CM met with colby Dickey, Hector is in PACU awaiting return to surgery. Keli is tearful she would like Hector to be transferred to [facility] [place] she states that he needs to be in a larger hospital. CM offered support to family and brought them to meet with Hector in PACU. After spouse met with provider plan is transfer patient to [facility]. A: 42 year old male admitted for colon stricture, anastomotic leak with resection, loop ileostomy. P: Hector is being transferred to [facility] awaiting bed availability. He will transfer via ambulance coordinated by the ICU and nursing supervisor looping. Family is aware of the transfer. CM offered ongoing support to patient and family.
[2018-06-13] MEDS: Lactated Ringers 1,000 ML 75 ML IV (11:41)
[2018-06-13] MEDS: MetroNIDAZOLE 500 MG/100 ML BAG 100 MG IVPB (11:45)
[2018-06-13] MEDS: DEXTROSE 5%-0.45% SALINE 1,000 ML 50 ML IV (11:47)
--- NOTE | 2018-06-13 11:56 | PT.INDS ---
Date of service: 06/13/18 Time of Service: 11:56 PT Notes Inpatient Physical Therapy Discharge Summary Dates: [] Dates of Service: [] SUBJECTIVE: [] OBJECTIVE: [] Pain: [] ROM: [] L UE: [] R UE: [] L LE: [] R LE: [] PT Initial Evaluation PATIENT NAME: PATIENCE DOW #: [id number] ADMITTING PROVIDER[facility] [id number] PRIMARY CARE PROVIDER: Clarissa Sheridan DATE OF ADMIT : : 1975 Date of service: 06/10/18 Time of Service: 10:13 PT Notes Inpatient Physical Therapy Evaluation Date: 06/13/18 Dates of service: 06/10/2018-06/13/18 Subjective: NT Objective: 06/10/2018-06/13/18 Bed Mobility/Transfers: Supine to sit: HOB 40-50 degrees, independent-Parvez Sit-stand: supervision with FWW Stand-sit: supervision Bed-chair: supervision with FWW Gait: Bariatric FWW, SBA, 50ft x2. Balance: Static Sitting: Normal Dynamic Sitting: Normal Static Standing: Fair Dynamic Standing: Fair Assessment: Patient is a 42-year-old male status post laparoscopic hand-assisted sigmoid colectomy and takedown of splenic flexure 06/04/2018, status post exploratory laparotomy with repair of anastomic leak and diverting ileostomy 06/08/18 in setting of Diverticulitis, bowel obstruction, sleep apnea. Patient was seen for 5 PT visits. Progressed from SBA standing transfers to supervision, from SBA gait with bariatric FWW 25ftx2 to SBA gait 50ftx2. Pt is transferred today to [facility] for medical management, discharge PT services. Goals: Goals X1 week 1. Supine-Sit: HOB 30, independent 2. Sit-Supine: HOB flat, independent 3. Sit-Stand: Independent 4. Stand-Sit: Independent 5. Bed-Chair: Supervision with FWW 6. Chair-Bed: Supervision with FWW 7. Gait: Supervision with FWW 200 feet 8. Stairs up/down 14 steps with railing, SBA 9. Independent with home exercise program for lower extremity strengthening Pt met goals # 2, 5, 6 DISCHARGE RECOMMENDATIONS: Transfer to [facility] Elsa Barboza PT
[2018-06-13] MEDS: HYDROmorphone 2 MG/ML VIAL 1 MG IVP (12:00)
--- NOTE | 2018-06-13 12:00 | INDS_ITS ---
Date of service: 06/13/18 Time of Service: 11:56 PT Notes Inpatient Physical Therapy Discharge Summary Dates: [] Dates of Service: [] SUBJECTIVE: [] OBJECTIVE: [] Pain: [] ROM: [] L UE: [] R UE: [] L LE: [] R LE: [] PT Initial Evaluation PATIENT NAME: PATIENCE DOW #: [id number] ADMITTING PROVIDER: [facility] [id number] PRIMARY CARE PROVIDER: Clarissa Sheridan DATE OF ADMIT : : 1975 Date of service: 06/10/18 Time of Service: 10:13 PT Notes Inpatient Physical Therapy Evaluation Date: 06/13/18 Dates of service: 06/10/2018-06/13/18 Subjective: NT Objective: 06/10/2018-06/13/18 Bed Mobility/Transfers: Supine to sit: HOB 40-50 degrees, independent-Parvez Sit-stand: supervision with FWW Stand-sit: supervision Bed-chair: supervision with FWW Gait: Bariatric FWW, SBA, 50ft x2. Balance: Static Sitting: Normal Dynamic Sitting: Normal Static Standing: Fair Dynamic Standing: Fair Assessment: Patient is a 42-year-old male status post laparoscopic hand- assisted sigmoid colectomy and takedown of splenic flexure 06/04/2018, status post exploratory laparotomy with repair of anastomic leak and diverting ileostomy 06/08/18 in setting of Diverticulitis, bowel obstruction, sleep apnea. Patient was seen for 5 PT visits. Progressed from SBA standing transfers to supervision, from SBA gait with bariatric FWW 25ftx2 to SBA gait 50ftx2. Pt is transferred today to [facility] for medical management, discharge PT services. Goals: Goals X1 week 1. Supine-Sit: HOB 30, independent 2. Sit-Supine: HOB flat, independent 3. Sit-Stand: Independent 4. Stand-Sit: Independent 5. Bed-Chair: Supervision with FWW 6. Chair-Bed: Supervision with FWW 7. Gait: Supervision with FWW 200 feet 8. Stairs up/down 14 steps with railing, SBA 9. Independent with home exercise program for lower extremity strengthening Pt met goals # 2, 5, 6 DISCHARGE RECOMMENDATIONS: Transfer to [facility] Elsa Barboza PT
--- NOTE | 2018-06-13 16:33 | CHAPLAIN ---
I visited with Hector this morning while he was waiting to be transferred to [facility]. He was tearful and appreciative of the comfort shawl given to him. I offered to pray with him, but he declined telling me that he has lost ana in prayer. I reminded him that we would all be thinking of him and that we are wishing the best for him.
--- NOTE | 2018-06-16 07:54 | OT.INDS ---
Date of service: 06/16/18 Time of Service: 07:54 Occupational Therapy Notes Occupational Therapy Inpatient Discharge Summary Date: 06/16/18 for 06/13/18 Dates of Service: 06/10/18-06/13/18 SUBJECTIVE: NT OBJECTIVE: Dates of Service: 06/10/18-06/13/18 BATHING Upper Body: (I) (B) UE, abdomen Lower Body: Unable to perform due to pain in abdomen DRESSING Upper body: Min (A) hospital gown Lower Body: Max (A) due to pain GROOMING: Sitting in bed, able to brush teeth (I) with set up (A). ASSESSMENT: Patient is a 42-year-old male referred to occupational therapy services with diagnosis of a leak from his anastamosis and a exploratory laparotomy performed on 06/08/18 in setting of Diverticulitis, sleep apnea, (L) knee surgery, colonic bowel obstruction, pt was admitted to [facility] prior to this. Pt was seen for 3 OT sessions, he made slight gains with (I) in ADLs but was limited in OT sessions due to pain and discomfort. Pt was [place] [facility] [place]. GOALS 1. Dressing- Pt will be able to (I) perform UE/LE dressing in hospital setting sitting on the edge of his bed. 2. Bathing- Pt will be able to (I) perform bathing routine in hospital setting. 3. Eating- Pt will be able to eat (I) with cutting food and bring food to his mouth in hospital setting. 4. Pt will be (I) with UE strengthening program to facilitate increased (I) in ADL/IADL routines. Pt did not meet full goals at this time. He was able to (I) bath UE but not LE. PLAN: Transfer[place] [facility] [place]REAT[place] CODES/TIME: G Codes in the area of self- : washing oneself, toileting, dressing, eating and drinking, current status GO [id number] CJ projected status GO [id number]. Discharge status (if discharging) GO [id number]. Cora Lees OTR/L
--- NOTE | 2018-06-16 08:00 | OTDS_ITS ---
Date of service: 06/16/18 Time of Service: 07:54 Occupational Therapy Notes Occupational Therapy Inpatient Discharge Summary Date: 06/16/18 for 06/13/18 Dates of Service: 06/10/18-06/13/18 SUBJECTIVE: NT OBJECTIVE: Dates of Service: 06/10/18-06/13/18 BATHING Upper Body: (I) (B) UE, abdomen Lower Body: Unable to perform due to pain in abdomen DRESSING Upper body: Min (A) hospital gown Lower Body: Max (A) due to pain GROOMING: Sitting in bed, able to brush teeth (I) with set up (A). ASSESSMENT: Patient is a 42-year-old male referred to occupational therapy services with diagnosis of a leak from his anastamosis and a exploratory laparotomy performed on 06/08/18 in setting of Diverticulitis, sleep apnea, (L) knee surgery, colonic bowel obstruction, pt was admitted to [facility] prior to this. Pt was seen for 3 OT sessions, he made slight gains with (I) in ADLs but was limited in OT sessions due to pain and discomfort. Pt was transferred [place] [facility] [place] care. GOALS 1. Dressing- Pt will be able to (I) perform UE/LE dressing in hospital setting sitting on the edge of his bed. 2. Bathing- Pt will be able to (I) perform bathing routine in hospital setting. 3. Eating- Pt will be able to eat (I) with cutting food and bring food to his mouth in hospital setting. 4. Pt will be (I) with UE strengthening program to facilitate increased (I) in ADL/IADL routines. Pt did not meet full goals at this time. He was able to (I) bath UE but not LE. PLAN: Transfer[place] [facility] TREATMENT CODES/TIME: G Codes in the area of self- : washing oneself, toileting, dressing, eating and drinking, current status GO [id number] CJ projected status GO [id number]. Discharge status (if discharging) GO [id number]. Cora Lees OTR/L
== END 2018-06-13 12:30 | disposition short-term general hospital (02) | DRG 329 ==
LOC: PDS 09:20 → MS 13:56 → ICU 06-08 22:46
PROVIDERS: Physical Therapy Assistant; Student in an Organized Health Care Education/Training Program; Surgery; Admitting Provider Surgery; PCP Nurse Practitioner; Visit Provider Surgery
PROC: 0DBN0ZZ Excision of Sigmoid Colon, Open Approach (ICD-10-PCS; CPT 44140; principal; 2018-06-04 07:30)
PROC: 0DQN0ZZ Repair Sigmoid Colon, Open Approach (ICD-10-PCS; CPT 49000; principal; 2018-06-08 17:15)
PROC: (CPT 44140; principal; 2018-06-13 09:00)
DX: K56.609 Unspecified intestinal obstruction, unspecified as to partial versus complete obstruction (principal); K65.1 Peritoneal abscess; K57.20 Diverticulitis of large intestine with perforation and abscess without bleeding; K91.89 Other postprocedural complications and disorders of digestive system; I97.191 Other postprocedural cardiac functional disturbances following other surgery; I47.2 Ventricular tachycardia; K91.2 Postsurgical malabsorption, not elsewhere classified; T81.49XA Infection following a procedure, other surgical site, initial encounter; K57.30 Diverticulosis of large intestine without perforation or abscess without bleeding; Z90.49 Acquired absence of other specified parts of digestive tract; Y83.2 Surgical operation with anastomosis, bypass or graft as the cause of abnormal reaction of the patient, or of later complication, without mention of misadventure at the time of the procedure; D72.828 Other elevated white blood cell count; R00.0 Tachycardia, unspecified; J02.9 Acute pharyngitis, unspecified; G89.18 Other acute postprocedural pain; G47.33 Obstructive sleep apnea (adult) (pediatric); K91.30 Postprocedural intestinal obstruction, unspecified as to partial versus complete; R14.0 Abdominal distension (gaseous); E87.70 Fluid overload, unspecified; R11.0 Nausea; R31.9 Hematuria, unspecified
CPT/HCPCS: 44140; 44139; 45335; 44604; 44310; 36415; 36569; 36592; 76942; 80048; 80053; 80076; 82550; 85027; 85652; 97110; 97163; 97166; 97530; 97535; 99233; 99239; J1650; NC; 74019; 74022; 74177; 83735; 85025; 86140; 88307; J0131; J0744; J1100; J1335; J1885; J1941; J2405; J2997; J3010; J3490

== ENCOUNTER 2018-07-23 22:47 | Outpatient (REF) | payer MEDICAID, SELFPAY ==
[2018-07-24 01:18] LABS: ALT 93 U/L (12-78); AST 43 U/L (15-37); Albumin 2.6 g/dL (3.4-5.0); Alkaline Phosphatase 168 U/L (46-116); Anion Gap 13.2 mmol/L (3-11); BUN 20 mg/dL (7-18); Bilirubin, Total 0.3 mg/dL (0.2-1.0); CO2 24.8 mmol/L (21.0-32.0); CREATININE 0.66 mg/dL (0.70-1.30); Calcium 9.7 mg/dL (8.5-10.1); Chloride 99 mmol/L (98-107); Glucose 92 mg/dL (70-100); Sodium 137 mmol/L (136-145); Total Protein 7.6 g/dL (6.4-8.2)
[2018-07-24 01:43] LABS: Abs Immature Grans 0.07 k/cumm (0.0-0.09); Absolute Basophil Count 0.03 k/cumm (0.0-0.2); Absolute Eosinophil Count 0.11 k/cumm (0.0-0.7); Absolute Lymphocyte Count 2.11 k/cumm (1.2-3.4); Absolute Monocyte Count 0.68 k/cumm (0.11-0.7); Absolute Neutrophil Count 6.84 k/cumm (1.2-6.7); Basophils % 0.3; Eosinophils % 1.1; HCT 31.9 % (40.0-50.0); HGB 9.6 g/dL (13.5-17.5); Immature Grans % 0.7; Lymphocytes % 21.4; Mean Corp. HGB Concentration 30.1 g/dL (32.0-36.0); Mean Corpuscular Hemoglobin 26.1 pg (27.0-33.0); Mean Corpuscular Volume 86.7 fL (80-95); Mean Platelet Volume 9.1 fL (8.0-11.0); Monocytes % 6.9; Neutrophils % 69.6; Platelet Count 693 x1000/uL (130-400); RBC 3.68 m/cumm (4.50-6.00); RBC Distribution Width 17.9 % (11.8-14.1); White Blood Cell Count 9.84 k/cumm (4.4-10.8)
== END 2018-07-23 23:07 ==
LOC: NCHCN 22:47
PROVIDERS: PCP Nurse Practitioner; Visit Provider Nurse Practitioner
DX: K91.89 Other postprocedural complications and disorders of digestive system (principal)
CPT/HCPCS: 80053; 85025

== ENCOUNTER 2018-07-31 10:52 | Outpatient (REF) | payer MEDICAID, SELFPAY ==
[2018-07-31 21:06] LABS: ALT 57 U/L (12-78); AST 26 U/L (15-37); Albumin 3.2 g/dL (3.4-5.0); Alkaline Phosphatase 155 U/L (46-116); Bilirubin, Direct 0.11 mg/dL (0.00-0.20); Bilirubin, Total 0.2 mg/dL (0.2-1.0); Total Protein 8.1 g/dL (6.4-8.2)
[2018-08-04 12:06] LABS: HBs Antibody, Qual Positive; HBs Antibody, Quant >1000.0 mIU/mL; Hepatitis B Core Antibody Negative (NEGAT); Hepatitis B surface Ag Negative (NEGAT); Hepatitis C Ab w Rflx HCV PCR Negative (NEGAT)
== END 2018-07-31 11:12 ==
LOC: NCHCN 10:52
PROVIDERS: PCP Nurse Practitioner; Visit Provider Nurse Practitioner
DX: Z11.59 Encounter for screening for other viral diseases (principal)
CPT/HCPCS: 80076; 86704; 86706; 86803; 87340

== ENCOUNTER 2018-08-08 09:52 | Outpatient (REF) | payer MEDICAID, SELFPAY ==
[2018-08-08 12:35] LABS: Abs Immature Grans 0.03 k/cumm (0.0-0.09); Absolute Basophil Count 0.02 k/cumm (0.0-0.2); Absolute Eosinophil Count 0.09 k/cumm (0.0-0.7); Absolute Lymphocyte Count 1.23 k/cumm (1.2-3.4); Absolute Monocyte Count 0.32 k/cumm (0.11-0.7); Absolute Neutrophil Count 5.05 k/cumm (1.2-6.7); Basophils % 0.3; Eosinophils % 1.3; HCT 37.8 % (40.0-50.0); HGB 11.3 g/dL (13.5-17.5); Immature Grans % 0.4; Lymphocytes % 18.2; Mean Corp. HGB Concentration 29.9 g/dL (32.0-36.0); Mean Corpuscular Hemoglobin 25.6 pg (27.0-33.0); Mean Corpuscular Volume 85.7 fL (80-95); Mean Platelet Volume 9.2 fL (8.0-11.0); Monocytes % 4.7; Neutrophils % 75.1; Platelet Count 372 x1000/uL (130-400); RBC 4.41 m/cumm (4.50-6.00); RBC Distribution Width 18.1 % (11.8-14.1); White Blood Cell Count 6.74 k/cumm (4.4-10.8)
[2018-08-08 12:56] LABS: Anisocytosis 1+; Diff Comment RBC Morph Reviewed; Hypochromasia 1+; Polychromasia Present
[2018-08-08 13:03] LABS: ALT 40 U/L (12-78); AST 20 U/L (15-37); Albumin 3.3 g/dL (3.4-5.0); Alkaline Phosphatase 114 U/L (46-116); Anion Gap 11.5 mmol/L (3-11); BUN 15 mg/dL (7-18); Bilirubin, Total 0.2 mg/dL (0.2-1.0); CO2 27.5 mmol/L (21.0-32.0); CREATININE 0.85 mg/dL (0.70-1.30); Calcium 9.8 mg/dL (8.5-10.1); Chloride 105 mmol/L (98-107); Glucose 97 mg/dL (70-100); Potassium 4.8 mmol/L (3.5-5.1); Sodium 144 mmol/L (136-145); Total Protein 7.7 g/dL (6.4-8.2)
== END 2018-08-08 10:12 ==
LOC: NCHCN 09:52
PROVIDERS: PCP Nurse Practitioner; Visit Provider Nurse Practitioner
DX: R79.89 Other specified abnormal findings of blood chemistry (principal); D64.9 Anemia, unspecified; K91.89 Other postprocedural complications and disorders of digestive system
CPT/HCPCS: 80053; 85025